=== PATIENT | male | born 1935 | race Caucasian/White ===

== ENCOUNTER 2018-11-06 12:30 | Inpatient (IN) | payer MEDICARE, BC ==
[2018-11-06] MEDS ORDERED: Sodium Chloride 0.9% 1,000 ML IV SCH (13:00)
--- NOTE | 2018-11-06 13:08 | EDM.PDOC ---
ED HPI GENERAL MEDICAL PROBLEM - General Chief Complaint: Back Pain or Injury Stated Complaint: [facility] Time Seen by Provider: 11/06/18 12:48 Source of Information: Reports: Patient, EMS, Family (daughter in law), RN Notes Reviewed - History of Present Illness INITIAL COMMENTS - FREE TEXT/NARRATIVE: 82 year old male became ill with low back pain, nausea, vomiting about 4 days ago, that has worsened over the last 2 days. Has had intermitent fever and chills yesterday and today. Today he has been "too weak to stand and walk" No abd pain at this time. Was given zofran and also 1 mg morphine IV while en route per ambulance. Not coughing any more than usual. No chest pain, does not feel short of breath but demonstrates tacyhpnea on arrival to ED. He is not diabetic. He does self catheterization, has not cathed his bladder since last evening, "too weak to get that done today." Treatments EMERGENCY RESPONSE COORDINATOR: Reports: Other Medication(s) Other Treatments EMERGENCY RESPONSE COORDINATOR: morphine and zofran Right Flank Pain Score (Numeric/FACES): 8 - Related Data Allergies Allergy/AdvReac Type Severity Reaction Status Date / Time No Known Allergies Allergy Verified 11/06/18 12:40 Home Meds: Home Meds Rosuvastatin Calcium 10 mg PO BEDTIME 11/06/18 [History] Temazepam [Restoril] 15 mg PO BEDTIME 11/06/18 [History] Past Medical History HEENT History: Reports: Impaired Vision Social & Family History - Tobacco Use Smoking Status *Q: Never Smoker - Caffeine Use Caffeine Use: Reports: Coffee - Recreational Drug Use Recreational Drug Use: No ED ROS GENERAL - Review of Systems Review Of Systems: See Below Constitutional: Reports: Fever, Chills HEENT: Denies: Sinus Problem, Throat Pain Respiratory: Reports: Cough (occasional). Denies: Shortness of Breath Cardiovascular: Denies: Chest Pain GI/Abdominal: Reports: Nausea, Vomiting. Denies: Abdominal Pain, Diarrhea Musculoskeletal: Reports: Back Pain (bilat low back) Neurological: Reports: Weakness (generalized) ED EXAM, SEPSIS - Physical Exam Exam: See Below General Appearance: Alert, Moderate Distress Eye Exam: Bilateral Eye: PERRL Throat/Mouth: Other (oral mucosa very dry) Course - Vital Signs Last Recorded V/S: Last Vital Signs Temp 101.8 F H 11/06/18 13:59 Pulse 91 11/06/18 13:59 Resp 16 11/06/18 13:59 BP 109/54 L 11/06/18 13:59 Pulse Ox 92 L 11/06/18 13:59 - Orders/Labs/Meds Orders: Active Orders 24 hr Category Date Time Status Insert Mcwilliams Catheter [Insert Urinary Catheter] [OM.PC] Care 11/06/18 13:56 Ordered Stat Peripheral IV Care [RC] . DIRECTED Care 11/06/18 12:49 Active Urinary Catheter Assessment [RC] ASDIRECTED Care 11/06/18 13:57 Active Chest 1V Frontal [CR] Stat Exams 11/06/18 12:49 Taken CULTURE BLOOD [BC] Stat Lab 11/06/18 13:05 Received CULTURE BLOOD [BC] Stat Lab 11/06/18 13:15 Received CULTURE URINE [RM] Stat Lab 11/06/18 13:40 Received Sodium Chloride 0.9% [Normal Saline] 1,000 ml Med 11/06/18 13:00 Active IV ONETIME Sodium Chloride 0.9% [Saline Flush] Med 11/06/18 12:48 Active 10 ml FLUSH ASDIRECTED PRN Peripheral IV Insertion Adult [OM.PC] Stat Oth 11/06/18 12:48 Ordered Medication Orders Sodium Chloride (Normal Saline) 1,000 mls @ 999 mls/hr IV ONETIME [facility] Last Admin: 11/06/18 13:30 Dose: 999 mls/hr Sodium Chloride (Saline Flush) 10 ml FLUSH ASDIRECTED PRN PRN Reason: Keep Vein Open Last Admin: 11/06/18 13:30 Dose: 10 ml Labs: Laboratory Tests 11/06/18 11/06/18 11/06/18 Range/Units 13:05 13:05 13:05 WBC 6.86 (4.23-9.07) K/mm3 RBC 3.76 L (4.63-6.08) M/mm3 Hgb 10.9 L (13.7-17.5) gm/L Hct 32.1 L (40.1-51.0) % MCV 85.4 (79.0-92.2) fl MCH 29.0 (25.7-32.2) pg MCHC 34.0 (32.2-35.5) g/dl RDW Std Deviation 40.6 (35.1-43.9) fL Plt Count 126 L (163-337) K/mm3 MPV 9.6 (9.4-12.3) fl Neutrophils % (Manual) 74 H (40-60) % Band Neutrophils % 21 H (0-10) % Lymphocytes % (Manual) 2 L (20-40) % Atypical Lymphs % 0 % Monocytes % (Manual) 3 (2-10) % Eosinophils % (Manual) 0 L (0.8-7.0) % Basophils % (Manual) 0 L (0.2-1.2) Toxic Granulation 2+ moderate Platelet Estimate Decreased RBC Morph Comment Normal Sodium 138 (136-145) mEq/L Potassium 3.4 L (3.5-5.1) mEq/L Chloride 104 (98-107) mEq/L Carbon Dioxide 21 (21-32) mEq/L Anion Gap 16.4 H (5-15) BUN 33 H (7-18) mg/dL Creatinine 1.1 (0.7-1.3) mg/dL Est Cr Clr Drug Dosing 62.27 mL/min Estimated GFR (MDRD) > 60 (>60) mL/min BUN/Creatinine Ratio 30.0 H (14-18) Glucose 123 H (83-115) mg/dL Lactic Acid (0.4-2.0) mmol/L Calcium 8.7 (8.5-10.1) mg/dL Total Bilirubin 1.7 H (0.2-1.0) mg/dL AST 29 (15-37) U/L ALT 24 (16-63) U/L Alkaline Phosphatase 109 (46-116) U/L C-Reactive Protein 23.7 H* (<1.0) mg/dL Total Protein 6.3 L (6.4-8.2) g/dl Albumin 2.7 L (3.4-5.0) g/dl Globulin 3.6 gm/dL Albumin/Globulin Ratio 0.8 L (1-2) Urine Color (Yellow) Urine Appearance (Clear) Urine pH (5.0-8.0) Ur Specific [place] (1.005-1.030) Urine Protein (Negative) Urine Glucose (UA) (Negative) Urine Ketones (Negative) Urine Occult Blood (Negative) Urine Nitrite (Negative) Urine Bilirubin (Negative) Urine Urobilinogen (0.2-1.0) Ur Leukocyte Esterase (Negative) Urine RBC (0-5) /hpf Urine WBC (0-5) /hpf Urine WBC Clumps (NOT SEEN) /hpf Ur Epithelial Cells (0-5) /hpf Urine Bacteria (FEW) /hpf Hyaline Casts (0-5) /lpf Coarse Granular Casts (0-5) /hpf Urine Mucus (FEW) /hpf 11/06/18 11/06/18 Range/Units 13:15 13:40 WBC (4.23-9.07) K/mm3 RBC (4.63-6.08) M/mm3 Hgb (13.7-17.5) gm/L Hct (40.1-51.0) % MCV (79.0-92.2) fl MCH (25.7-32.2) pg MCHC (32.2-35.5) g/dl RDW Std Deviation (35.1-43.9) fL Plt Count (163-337) K/mm3 MPV (9.4-12.3) fl Neutrophils % (Manual) (40-60) % Band Neutrophils % (0-10) % Lymphocytes % (Manual) (20-40) % Atypical Lymphs % % Monocytes % (Manual) (2-10) % Eosinophils % (Manual) (0.8-7.0) % Basophils % (Manual) (0.2-1.2) Toxic Granulation Platelet Estimate RBC Morph Comment Sodium (136-145) mEq/L Potassium (3.5-5.1) mEq/L Chloride (98-107) mEq/L Carbon Dioxide (21-32) mEq/L Anion Gap (5-15) BUN (7-18) mg/dL Creatinine (0.7-1.3) mg/dL Est Cr Clr Drug Dosing mL/min Estimated GFR (MDRD) (>60) mL/min BUN/Creatinine Ratio (14-18) Glucose (83-115) mg/dL Lactic Acid 1.4 (0.4-2.0) mmol/L Calcium (8.5-10.1) mg/dL Total Bilirubin (0.2-1.0) mg/dL AST (15-37) U/L ALT (16-63) U/L Alkaline Phosphatase (46-116) U/L C-Reactive Protein (<1.0) mg/dL Total Protein (6.4-8.2) g/dl Albumin (3.4-5.0) g/dl Globulin gm/dL Albumin/Globulin Ratio (1-2) Urine Color [place] H (Yellow) Urine Appearance Cloudy H (Clear) Urine pH 5.5 (5.0-8.0) Ur Specific [place] 1.020 (1.005-1.030) Urine Protein 2+ H (Negative) Urine Glucose (UA) Negative (Negative) Urine Ketones 1+ H (Negative) Urine Occult Blood 3+ H (Negative) Urine Nitrite Negative (Negative) Urine Bilirubin 1+ H (Negative) Urine Urobilinogen 2.0 H (0.2-1.0) Ur Leukocyte Esterase 3+ H (Negative) Urine RBC 0-5 (0-5) /hpf Urine WBC 20-30 H (0-5) /hpf Urine WBC Clumps Moderate (NOT SEEN) /hpf Ur Epithelial Cells Not seen (0-5) /hpf Urine Bacteria Moderate H (FEW) /hpf Hyaline Casts 0-5 (0-5) /lpf Coarse Granular Casts 0-5 (0-5) /hpf Urine Mucus Not seen (FEW) /hpf Meds: Medications Generic Name Dose Route Start Last Admin Trade Name Freq PRN Reason Stop Dose Admin Sodium Chloride 1,000 mls @ 999 mls/hr 11/06/18 13:00 11/06/18 13:30 Normal Saline IV 999 mls/hr ONETIME NAZ Administration Sodium Chloride 10 ml 11/06/18 12:48 11/06/18 13:30 Saline Flush FLUSH 10 ml ASDIRECTED PRN Administration Keep Vein Open Discontinued Medications Generic Name Dose Route Start Last Admin Trade Name Freq PRN Reason Stop Dose Admin Acetaminophen 975 mg 11/06/18 14:58 11/06/18 15:25 Tylenol PO 11/06/18 14:59 975 mg NOW ONE Administration Hydromorphone HCl 0.5 mg 11/06/18 14:58 11/06/18 15:24 Dilaudid IVPUSH 11/06/18 14:59 0.5 mg ONETIME ONE Administration Ceftriaxone Sodium 1 gm/ 100 mls @ 200 mls/hr 11/06/18 14:39 11/06/18 15:11 Sodium Chloride IV 11/06/18 15:08 200 mls/hr ONETIME ONE Administration Lidocaine HCl Confirm 11/06/18 15:11 Xylocaine 2% Jelly Administered 11/06/18 15:12 Dose 10 ml .ROUTE .STK-MED ONE Departure - Departure Time of Disposition: 15:31 Disposition: Admitted As Inpatient 68 Condition: Serious Clinical Impression: Pyelonephritis, Dehydration Vomiting Qualifiers: Vomiting type: unspecified Vomiting Intractability: non-intractable Nausea presence: with nausea Qualified Code(s): R11.2 - Nausea with vomiting, unspecified - Discharge Information Referrals: Migdalia Sanchez PA-C [Primary Care Provider] - Forms: ED Department Discharge ED Communication - Discussed Case With (1) Discussed Case With (1): Admitting Provider (discussed with Dr Cordova, decision to admit at about 14:15.) - My Orders Last 24 Hours: My Active Orders 11/06/18 12:48 Sodium Chloride 0.9% [Saline Flush] 10 ml FLUSH ASDIRECTED PRN Peripheral IV Insertion Adult [OM.PC] Stat 11/06/18 12:49 Peripheral IV Care [RC] . DIRECTED Chest 1V Frontal [CR] Stat 11/06/18 13:00 Sodium Chloride 0.9% [Normal Saline] 1,000 ml IV ONETIME 11/06/18 13:05 CULTURE BLOOD [BC] Stat 11/06/18 13:15 CULTURE BLOOD [BC] Stat 11/06/18 13:40 CULTURE URINE [RM] Stat 11/06/18 13:56 Insert Mcwilliams Catheter [Insert Urinary Catheter] [OM.PC] Stat 11/06/18 13:57 Urinary Catheter Assessment [RC] ASDIRECTED - Assessment/Plan Last 24 Hours: My Active Orders 11/06/18 12:48 Sodium Chloride 0.9% [Saline Flush] 10 ml FLUSH ASDIRECTED PRN Peripheral IV Insertion Adult [OM.PC] Stat 11/06/18 12:49 Peripheral IV Care [RC] . DIRECTED Chest 1V Frontal [CR] Stat 11/06/18 13:00 Sodium Chloride 0.9% [Normal Saline] 1,000 ml IV ONETIME 11/06/18 13:05 CULTURE BLOOD [BC] Stat 11/06/18 13:15 CULTURE BLOOD [BC] Stat 11/06/18 13:40 CULTURE URINE [RM] Stat 11/06/18 13:56 Insert Mcwilliams Catheter [Insert Urinary Catheter] [OM.PC] Stat 11/06/18 13:57 Urinary Catheter Assessment [RC] ASDIRECTED
[2018-11-06] MEDS: Sodium Chloride 0.9% 10 ML Syringe FLUSH PRN (13:30)
[2018-11-06] MEDS ORDERED: cefTRIAXone 1 GM in Sodium Chloride 0.9% 100 ML IV ONE (14:39)
[2018-11-06] MEDS ORDERED: Acetaminophen 325 MG Tab PO ONE (14:58)
[2018-11-06] MEDS ORDERED: HYDROmorphone 1 MG/ML Syringe IVPUSH ONE (14:58)
[2018-11-06] MEDS ORDERED: Lidocaine 2% Jelly 10 ML Urojet ONE (15:11)
--- NOTE | 2018-11-06 17:22 | PCM.HP ---
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 PCP is Jacquie Lewis whom he saw on 11/01/18 for a routine evaluation. The patient and his daughter report an unremarkable visit. However less than 24 hours later he developed significant flank pain. 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 UA is suggestive of a possible AUTI/pyelonephritis; he is admitted to [facility] with tele. The patient is a full code. Onset of Symptoms: Reports: Sudden Symptom Onset Date: 11/02/18 Duration of Symptoms: Reports: Day(s):, Getting Worse Location: Reports: Abdomen, Back Severity: Moderate Improves with: Reports: Medication Worsens with: Reports: None Associated Symptoms: Reports: Malaise, Nausea/Vomiting, Weakness Right Flank Pain Score (Numeric/FACES): 8 - Related Data Allergies/Adverse Reactions: Allergies Allergy/AdvReac Type Severity Reaction Status Date / Time No Known Allergies Allergy Verified 11/06/18 16:33 Home Medications: Home Meds Acetaminophen [Tylenol] 650 mg PO DAILY 11/06/18 [History] Ascorbate Calcium [Vitamin C] 500 mg PO DAILY 11/06/18 [History] Cholecalciferol (Vitamin D3) [Vitamin D] 5,000 units PO DAILY 11/06/18 [History] Cyanocobalamin (Vitamin B12) [Vitamin B12] 1,000 mcg PO DAILY 11/06/18 [History] Fluticasone Propionate [Flonase Allergy Relief] 2 spray NASBOTH DAILY 11/06/18 [ History] Ibuprofen/Diphenhydramine Cit [Advil Pm Caplet] 2 tab PO BEDTIME 11/06/18 [ History] Rosuvastatin Calcium 10 mg PO BEDTIME 11/06/18 [History] Temazepam [Restoril] 30 mg PO BEDTIME 02/10/19 [History] Past Medical History HEENT History: Reports: Allergic Rhinitis, Impaired Vision, Other (See Below) Other HEENT History: wears glasses Cardiovascular History: Reports: High Cholesterol, Other (See Below) Other Cardiovascular History: rheumatic fever as child Genitourinary History: Reports: Retention, Urinary, Other (See Below) Other Genitourinary History: straight cath's three times a day at home Musculoskeletal History: Reports: Arthritis, Back Pain, Chronic Neurological History: Reports: Neuropathy, Peripheral, Other (See Below) Other Neuro History: nerve damage Hematologic History: Reports: B12 Deficiency - Infectious Disease History Infectious Disease History: Reports: Rheumatic Fever - Past Surgical History HEENT Surgical History: Reports: Cataract Surgery Cardiovascular Surgical History: Reports: None GI Surgical History: Reports: Cholecystectomy, Colonoscopy, Other (See Below) Other GI Surgeries/Procedures: hernia repair Male Surgical History: Reports: None Neurological Surgical History: Reports: Other (See Below) Other Neurological Surgeries/Procedures: several back surgeries Musculoskeletal Surgical History: Reports: Carpal Tunnel, Other (See Below) Other Musculoskeletal Surgeries/Procedures:: left hip replaced, right knee replaced, left pinkie finger has a screw in it Social & Family History - Family History Family Medical History: Noncontributory - Tobacco Use Smoking Status *Q: Former Smoker Used Tobacco, but Quit: Yes Month/Year Tobacco Last Used: 1965 Tobacco Use Comment: used to chew tobacco but quit that 15-20 years ago - Caffeine Use Caffeine Use: Reports: Coffee, Soda - Alcohol Use Days Per Week of Alcohol Use: 7 Number of Drinks Per Day: 4 Total Drinks Per Week: 28 - Recreational Drug Use Recreational Drug Use: No H&P Review of Systems - Review of Systems: Review Of Systems: See Below General: Reports: Fever, Chills, Malaise, Weakness HEENT: Reports: No Symptoms Pulmonary: Reports: No Symptoms Cardiovascular: Reports: No Symptoms Gastrointestinal: Reports: Nausea, Vomiting Genitourinary: Reports: Urgency, Flank Pain Musculoskeletal: Reports: Back Pain Skin: Reports: No Symptoms Psychiatric: Reports: No Symptoms Neurological: Reports: No Symptoms Hematologic/Lymphatic: Reports: No Symptoms Immunologic: Reports: No Symptoms Exam - Exam Exam: See Below - Vital Signs Vital Signs: Last Vital Signs Temp 38.8 C H 11/06/18 13:59 Pulse 91 11/06/18 13:59 Resp 16 11/06/18 13:59 BP 109/54 L 11/06/18 13:59 Pulse Ox 92 L 11/06/18 13:59 Weight: 119.567 kg - Exam Quality Assessment: Urinary Catheter, DVT Prophylaxis General: Alert, Oriented, Cooperative HEENT: Conjunctiva Clear, EACs Clear, EOMI, Hearing Intact, Nares Patent, Normal Nasal Septum, Pupils Equal, Pupils Reactive, PERRLA Neck: Trachea Midline Lungs: Normal Respiratory Effort Cardiovascular: Regular Rate, Regular Rhythm GI/Abdominal Exam: Normal Bowel Sounds, Soft, Non-Tender, No Organomegaly, No Distention (Male) Exam: Deferred Rectal (Males) Exam: Deferred Back Exam: Normal Inspection, CVA Tenderness (L), CVA Tenderness (R) Extremities: Normal Inspection, Non-Tender, Slow Capillary Refill Skin: Warm Neurological: Cranial Nerves Intact Neuro Extensive - Mental Status: Alert, Oriented x3, Normal Mood/Affect, Normal Cognition, Memory Intact Neuro Extensive - Motor, Sensory, Reflexes: CN II-XII Intact Psychiatric: Alert, Normal Affect, Normal Mood - Patient Data Lab Results Last 24 hrs: Laboratory Results - last 24 hr 11/06/18 11/06/18 11/06/18 Range/Units 13:05 13:05 13:05 WBC 6.86 (4.23-9.07) K/mm3 RBC 3.76 L (4.63-6.08) M/mm3 Hgb 10.9 L (13.7-17.5) gm/L Hct 32.1 L (40.1-51.0) % MCV 85.4 (79.0-92.2) fl MCH 29.0 (25.7-32.2) pg MCHC 34.0 (32.2-35.5) g/dl RDW Std Deviation 40.6 (35.1-43.9) fL Plt Count 126 L (163-337) K/mm3 MPV 9.6 (9.4-12.3) fl Neutrophils % (Manual) 74 H (40-60) % Band Neutrophils % 21 H (0-10) % Lymphocytes % (Manual) 2 L (20-40) % Atypical Lymphs % 0 % Monocytes % (Manual) 3 (2-10) % Eosinophils % (Manual) 0 L (0.8-7.0) % Basophils % (Manual) 0 L (0.2-1.2) Toxic Granulation 2+ moderate Platelet Estimate Decreased RBC Morph Comment Normal Sodium 138 (136-145) mEq/L Potassium 3.4 L (3.5-5.1) mEq/L Chloride 104 (98-107) mEq/L Carbon Dioxide 21 (21-32) mEq/L Anion Gap 16.4 H (5-15) BUN 33 H (7-18) mg/dL Creatinine 1.1 (0.7-1.3) mg/dL Est Cr Clr Drug Dosing 62.27 mL/min Estimated GFR (MDRD) > 60 (>60) mL/min BUN/Creatinine Ratio 30.0 H (14-18) Glucose 123 H (83-115) mg/dL Lactic Acid (0.4-2.0) mmol/L Calcium 8.7 (8.5-10.1) mg/dL Total Bilirubin 1.7 H (0.2-1.0) mg/dL AST 29 (15-37) U/L ALT 24 (16-63) U/L Alkaline Phosphatase 109 (46-116) U/L C-Reactive Protein 23.7 H* (<1.0) mg/dL Total Protein 6.3 L (6.4-8.2) g/dl Albumin 2.7 L (3.4-5.0) g/dl Globulin 3.6 gm/dL Albumin/Globulin Ratio 0.8 L (1-2) Urine Color (Yellow) Urine Appearance (Clear) Urine pH (5.0-8.0) Ur Specific [place] (1.005-1.030) Urine Protein (Negative) Urine Glucose (UA) (Negative) Urine Ketones (Negative) Urine Occult Blood (Negative) Urine Nitrite (Negative) Urine Bilirubin (Negative) Urine Urobilinogen (0.2-1.0) Ur Leukocyte Esterase (Negative) Urine RBC (0-5) /hpf Urine WBC (0-5) /hpf Urine WBC Clumps (NOT SEEN) /hpf Ur Epithelial Cells (0-5) /hpf Urine Bacteria (FEW) /hpf Hyaline Casts (0-5) /lpf Coarse Granular Casts (0-5) /hpf Urine Mucus (FEW) /hpf 11/06/18 11/06/18 Range/Units 13:15 13:40 WBC (4.23-9.07) K/mm3 RBC (4.63-6.08) M/mm3 Hgb (13.7-17.5) gm/L Hct (40.1-51.0) % MCV (79.0-92.2) fl MCH (25.7-32.2) pg MCHC (32.2-35.5) g/dl RDW Std Deviation (35.1-43.9) fL Plt Count (163-337) K/mm3 MPV (9.4-12.3) fl Neutrophils % (Manual) (40-60) % Band Neutrophils % (0-10) % Lymphocytes % (Manual) (20-40) % Atypical Lymphs % % Monocytes % (Manual) (2-10) % Eosinophils % (Manual) (0.8-7.0) % Basophils % (Manual) (0.2-1.2) Toxic Granulation Platelet Estimate RBC Morph Comment Sodium (136-145) mEq/L Potassium (3.5-5.1) mEq/L Chloride (98-107) mEq/L Carbon Dioxide (21-32) mEq/L Anion Gap (5-15) BUN (7-18) mg/dL Creatinine (0.7-1.3) mg/dL Est Cr Clr Drug Dosing mL/min Estimated GFR (MDRD) (>60) mL/min BUN/Creatinine Ratio (14-18) Glucose (83-115) mg/dL Lactic Acid 1.4 (0.4-2.0) mmol/L Calcium (8.5-10.1) mg/dL Total Bilirubin (0.2-1.0) mg/dL AST (15-37) U/L ALT (16-63) U/L Alkaline Phosphatase (46-116) U/L C-Reactive Protein (<1.0) mg/dL Total Protein (6.4-8.2) g/dl Albumin (3.4-5.0) g/dl Globulin gm/dL Albumin/Globulin Ratio (1-2) Urine Color [place] H (Yellow) Urine Appearance Cloudy H (Clear) Urine pH 5.5 (5.0-8.0) Ur Specific [place] 1.020 (1.005-1.030) Urine Protein 2+ H (Negative) Urine Glucose (UA) Negative (Negative) Urine Ketones 1+ H (Negative) Urine Occult Blood 3+ H (Negative) Urine Nitrite Negative (Negative) Urine Bilirubin 1+ H (Negative) Urine Urobilinogen 2.0 H (0.2-1.0) Ur Leukocyte Esterase 3+ H (Negative) Urine RBC 0-5 (0-5) /hpf Urine WBC 20-30 H (0-5) /hpf Urine WBC Clumps Moderate (NOT SEEN) /hpf Ur Epithelial Cells Not seen (0-5) /hpf Urine Bacteria Moderate H (FEW) /hpf Hyaline Casts 0-5 (0-5) /lpf Coarse Granular Casts 0-5 (0-5) /hpf Urine Mucus Not seen (FEW) /hpf Result Diagrams: 11/06/18 13:05 11/06/18 13:05 - Problem List (1) Hyperlipidemia SNOMED Code(s): 87386315 ICD Code: E78.5 - HYPERLIPIDEMIA, UNSPECIFIED Status: Acute Current Visit : Yes (2) Dehydration SNOMED Code(s): 23635140 ICD Code: E86.0 - DEHYDRATION Status: Acute Current Visit: Yes (3) Pyelonephritis SNOMED Code(s): 71520997 ICD Code: N12 - TUBULO-INTERSTITIAL NEPHRITIS, NOT SPCF ACUTE OR CHRONIC Status: Acute Current Visit: Yes (4) Vomiting SNOMED Code(s): 932985209 ICD Code: R11.10 - VOMITING, UNSPECIFIED Status: Acute Current Visit: Yes Qualifiers: Vomiting type: unspecified Vomiting Intractability: non-intractable Nausea presence: with nausea Qualified Code(s): R11.2 - Nausea with vomiting, unspecified Problem List Initiated/Reviewed/Updated: Yes Orders Last 24hrs: Active Orders 24 hr Category Date Time Status Admission Status [Patient Status] [ADT] Routine ADT 11/06/18 15:51 Active Influenza Vaccine Charge [RC] .DISCHARGE Care 11/06/18 16:34 Active Insert Mcwilliams Catheter [Insert Urinary Catheter] [OM.PC] Care 11/06/18 13:56 Ordered Stat Peripheral IV Care [RC] . DIRECTED Care 11/06/18 12:49 Active Urinary Catheter Assessment [RC] ASDIRECTED Care 11/06/18 13:57 Active Chest 1V Frontal [CR] Stat Exams 11/06/18 12:49 Taken CULTURE BLOOD [BC] Stat Lab 11/06/18 13:05 Received CULTURE BLOOD [BC] Stat Lab 11/06/18 13:15 Received CULTURE URINE [RM] Stat Lab 11/06/18 13:40 Received Sodium Chloride 0.9% [Normal Saline] 1,000 ml Med 11/06/18 13:00 Active IV ONETIME Sodium Chloride 0.9% [Saline Flush] Med 11/06/18 12:48 Active 10 ml FLUSH ASDIRECTED PRN Peripheral IV Insertion Adult [OM.PC] Stat Oth 11/06/18 12:48 Ordered Medication Orders Sodium Chloride (Normal Saline) 1,000 mls @ 999 mls/hr IV ONETIME NAZ Last Admin: 11/06/18 13:30 Dose: 999 mls/hr Sodium Chloride (Saline Flush) 10 ml FLUSH ASDIRECTED PRN PRN Reason: Keep Vein Open Last Admin: 11/06/18 13:30 Dose: 10 ml Assessment/Plan Comment:: Impression: Flank pain with history of straight catheterizations Increase frequency/urgency Presumptive pyelonephritis History of chronic back pain Chronic HLD Plan: IVF Rocephin 2 gm daily UC, pending Pain meds Home meds Daily Labs Consult PT/OT/CM DVT/GI prophylaxis
[2018-11-06] MEDS ORDERED: LORazepam 2 MG/ML SDV IVPUSH PRN (17:29)
[2018-11-06] MEDS ORDERED: HYDROmorphone 0.5 MG/0.5 ML Syringe IVPUSH PRN (17:34)
[2018-11-06] MEDS ORDERED: Ondansetron 4 MG/2 ML SDV IVPUSH PRN (17:42)
[2018-11-06] MEDS ORDERED: hydrALAZINE 20 MG/ML SDV IVPUSH PRN (17:42)
--- NOTE | 2018-11-06 18:15 | CR ---
Chest: Portable view of the chest was obtained. Comparison: Prior chest x-ray of 09/30/15. Minimal left basilar atelectasis is noted. Lungs otherwise are clear. Heart size is normal. Tortuous thoracic aorta is seen. Bony structures are grossly intact. Impression: 1. Incidental findings as noted above. Nothing acute is appreciated. Diagnostic code #2
[2018-11-06] MEDS: Acetaminophen/HYDROcodone 325-5 MG Tab PO PRN (18:54)
[2018-11-06] MEDS: Enoxaparin 40 MG/0.4 ML Syringe SUBCUT SCH (18:59)
[2018-11-06] MEDS: Sodium Chloride 0.45% 1,000 ML IV SCH (18:59)
[2018-11-06] MEDS ORDERED: Temazepam 15 MG Cap PO SCH (21:00)
[2018-11-06] MEDS: Gabapentin 100 MG Cap PO SCH (21:17)
[2018-11-06] MEDS: Rosuvastatin 10 MG Tab PO SCH (21:17)
[2018-11-06] MEDS: Temazepam 15 MG Cap PO SCH (21:18)
[2018-11-07] MEDS: Sodium Chloride 0.45% 1,000 ML IV SCH ×4 (02:30→18:16)
[2018-11-07] MEDS: Acetaminophen/HYDROcodone 325-5 MG Tab PO PRN ×3 (04:20→19:53)
[2018-11-07] MEDS ORDERED: HYDROmorphone 1 MG/ML Syringe IVPUSH PRN (04:32)
--- NOTE | 2018-11-07 08:00 | PCM.PN ---
- General Info Date of Service: 11/07/18 Admission Dx/Problem (Free Text): Admission Diagnosis/Problem Admission Diagnosis/Problem Pyelonephritis Functional Status: Reports: Pain Controlled (with pain medications ), Tolerating Diet, Ambulating, Urinating, New Symptoms - Review of Systems General: Reports: Fever (101), Weakness, Fatigue, Malaise. Denies: Chills HEENT: Reports: No Symptoms. Denies: Headaches, Sore Throat Pulmonary: Reports: No Symptoms. Denies: Shortness of Breath, Cough, Sputum, Wheezing Cardiovascular: Reports: No Symptoms. Denies: Chest Pain, Palpitations, Edema Gastrointestinal: Reports: Abdominal Pain (suprapubic ), Decreased Appetite, Other (flank pain radiating around to abdomen ). Denies: Constipation, Diarrhea , Nausea, Vomiting Genitourinary: Reports: No Symptoms, Other (Mcwilliams catheter in place ) Musculoskeletal: Reports: Back Pain Skin: Reports: No Symptoms. Denies: Cyanosis Neurological: Reports: Difficulty Walking, Weakness, Gait Disturbance. Denies: Confusion, Numbness, Tingling, Trouble Speaking, Change in Speech Psychiatric: Reports: No Symptoms - Patient Data Vitals - Most Recent: Last Vital Signs Temp 97.5 F 11/07/18 04:20 Pulse 91 11/07/18 04:20 Resp 16 11/07/18 04:20 BP 140/64 11/07/18 04:20 Pulse Ox 95 11/07/18 04:20 Weight - Most Recent: 259 lb 6.4 oz I&O - Last 24 Hours: Intake & Output 11/06/18 11/07/18 11/07/18 22:59 06:59 14:59 Intake Total 560 1957 Output Total 150 650 Balance 410 1307 Lab Results Last 24 Hours: Laboratory Results - last 24 hr 11/06/18 11/06/18 11/06/18 Range/Units 13:05 13:05 13:05 WBC 6.86 (4.23-9.07) K/mm3 RBC 3.76 L (4.63-6.08) M/mm3 Hgb 10.9 L (13.7-17.5) gm/L Hct 32.1 L (40.1-51.0) % MCV 85.4 (79.0-92.2) fl MCH 29.0 (25.7-32.2) pg MCHC 34.0 (32.2-35.5) g/dl RDW Std Deviation 40.6 (35.1-43.9) fL Plt Count 126 L (163-337) K/mm3 MPV 9.6 (9.4-12.3) fl Neut % (Auto) (34.0-67.9) % Lymph % (Auto) (21.8-53.1) % [place] % (Auto) (5.3-12.2) % Eos % (Auto) (0.8-7.0) Baso % (Auto) (0.1-1.2) % Neut # (Auto) (1.78-5.38) K/mm3 Lymph # (Auto) (1.32-3.57) K/mm3 [place] # (Auto) (0.30-0.82) K/mm3 Eos # (Auto) (0.04-0.54) K/mm3 Baso # (Auto) (0.01-0.08) K/mm3 Neutrophils % (Manual) 74 H (40-60) % Band Neutrophils % 21 H (0-10) % Lymphocytes % (Manual) 2 L (20-40) % Atypical Lymphs % 0 % Monocytes % (Manual) 3 (2-10) % Eosinophils % (Manual) 0 L (0.8-7.0) % Basophils % (Manual) 0 L (0.2-1.2) Toxic Granulation 2+ moderate Platelet Estimate Decreased RBC Morph Comment Normal Sodium 138 (136-145) mEq/L Potassium 3.4 L (3.5-5.1) mEq/L Chloride 104 (98-107) mEq/L Carbon Dioxide 21 (21-32) mEq/L Anion Gap 16.4 H (5-15) BUN 33 H (7-18) mg/dL Creatinine 1.1 (0.7-1.3) mg/dL Est Cr Clr Drug Dosing 62.27 mL/min Estimated GFR (MDRD) > 60 (>60) mL/min BUN/Creatinine Ratio 30.0 H (14-18) Glucose 123 H (83-115) mg/dL Lactic Acid (0.4-2.0) mmol/L Calcium 8.7 (8.5-10.1) mg/dL Total Bilirubin 1.7 H (0.2-1.0) mg/dL AST 29 (15-37) U/L ALT 24 (16-63) U/L Alkaline Phosphatase 109 (46-116) U/L C-Reactive Protein 23.7 H* (<1.0) mg/dL Total Protein 6.3 L (6.4-8.2) g/dl Albumin 2.7 L (3.4-5.0) g/dl Globulin 3.6 gm/dL Albumin/Globulin Ratio 0.8 L (1-2) Urine Color (Yellow) Urine Appearance (Clear) Urine pH (5.0-8.0) Ur Specific [place] (1.005-1.030) Urine Protein (Negative) Urine Glucose (UA) (Negative) Urine Ketones (Negative) Urine Occult Blood (Negative) Urine Nitrite (Negative) Urine Bilirubin (Negative) Urine Urobilinogen (0.2-1.0) Ur Leukocyte Esterase (Negative) Urine RBC (0-5) /hpf Urine WBC (0-5) /hpf Urine WBC Clumps (NOT SEEN) /hpf Ur Epithelial Cells (0-5) /hpf Urine Bacteria (FEW) /hpf Hyaline Casts (0-5) /lpf Coarse Granular Casts (0-5) /hpf Urine Mucus (FEW) /hpf 11/06/18 11/06/18 11/07/18 Range/Units 13:15 13:40 05:58 WBC 6.64 (4.23-9.07) K/mm3 RBC 4.03 L (4.63-6.08) M/mm3 Hgb 11.8 L (13.7-17.5) gm/L Hct 34.8 L (40.1-51.0) % MCV 86.4 (79.0-92.2) fl MCH 29.3 (25.7-32.2) pg MCHC 33.9 (32.2-35.5) g/dl RDW Std Deviation 43.0 (35.1-43.9) fL Plt Count 136 L (163-337) K/mm3 MPV 10.1 (9.4-12.3) fl Neut % (Auto) 86.3 H (34.0-67.9) % Lymph % (Auto) 7.1 L (21.8-53.1) % [place] % (Auto) 5.7 (5.3-12.2) % Eos % (Auto) 0.3 L (0.8-7.0) Baso % (Auto) 0.0 L (0.1-1.2) % Neut # (Auto) 5.73 H (1.78-5.38) K/mm3 Lymph # (Auto) 0.47 L (1.32-3.57) K/mm3 [place] # (Auto) 0.38 (0.30-0.82) K/mm3 Eos # (Auto) 0.02 L (0.04-0.54) K/mm3 Baso # (Auto) 0.00 L (0.01-0.08) K/mm3 Neutrophils % (Manual) (40-60) % Band Neutrophils % (0-10) % Lymphocytes % (Manual) (20-40) % Atypical Lymphs % % Monocytes % (Manual) (2-10) % Eosinophils % (Manual) (0.8-7.0) % Basophils % (Manual) (0.2-1.2) Toxic Granulation Platelet Estimate RBC Morph Comment Sodium (136-145) mEq/L Potassium (3.5-5.1) mEq/L Chloride (98-107) mEq/L Carbon Dioxide (21-32) mEq/L Anion Gap (5-15) BUN (7-18) mg/dL Creatinine (0.7-1.3) mg/dL Est Cr Clr Drug Dosing mL/min Estimated GFR (MDRD) (>60) mL/min BUN/Creatinine Ratio (14-18) Glucose (83-115) mg/dL Lactic Acid 1.4 (0.4-2.0) mmol/L Calcium (8.5-10.1) mg/dL Total Bilirubin (0.2-1.0) mg/dL AST (15-37) U/L ALT (16-63) U/L Alkaline Phosphatase (46-116) U/L C-Reactive Protein (<1.0) mg/dL Total Protein (6.4-8.2) g/dl Albumin (3.4-5.0) g/dl Globulin gm/dL Albumin/Globulin Ratio (1-2) Urine Color [place] H (Yellow) Urine Appearance Cloudy H (Clear) Urine pH 5.5 (5.0-8.0) Ur Specific [place] 1.020 (1.005-1.030) Urine Protein 2+ H (Negative) Urine Glucose (UA) Negative (Negative) Urine Ketones 1+ H (Negative) Urine Occult Blood 3+ H (Negative) Urine Nitrite Negative (Negative) Urine Bilirubin 1+ H (Negative) Urine Urobilinogen 2.0 H (0.2-1.0) Ur Leukocyte Esterase 3+ H (Negative) Urine RBC 0-5 (0-5) /hpf Urine WBC 20-30 H (0-5) /hpf Urine WBC Clumps Moderate (NOT SEEN) /hpf Ur Epithelial Cells Not seen (0-5) /hpf Urine Bacteria Moderate H (FEW) /hpf Hyaline Casts 0-5 (0-5) /lpf Coarse Granular Casts 0-5 (0-5) /hpf Urine Mucus Not seen (FEW) /hpf 11/07/18 Range/Units 05:58 WBC (4.23-9.07) K/mm3 RBC (4.63-6.08) M/mm3 Hgb (13.7-17.5) gm/L Hct (40.1-51.0) % MCV (79.0-92.2) fl MCH (25.7-32.2) pg MCHC (32.2-35.5) g/dl RDW Std Deviation (35.1-43.9) fL Plt Count (163-337) K/mm3 MPV (9.4-12.3) fl Neut % (Auto) (34.0-67.9) % Lymph % (Auto) (21.8-53.1) % [place] % (Auto) (5.3-12.2) % Eos % (Auto) (0.8-7.0) Baso % (Auto) (0.1-1.2) % Neut # (Auto) (1.78-5.38) K/mm3 Lymph # (Auto) (1.32-3.57) K/mm3 [place] # (Auto) (0.30-0.82) K/mm3 Eos # (Auto) (0.04-0.54) K/mm3 Baso # (Auto) (0.01-0.08) K/mm3 Neutrophils % (Manual) (40-60) % Band Neutrophils % (0-10) % Lymphocytes % (Manual) (20-40) % Atypical Lymphs % % Monocytes % (Manual) (2-10) % Eosinophils % (Manual) (0.8-7.0) % Basophils % (Manual) (0.2-1.2) Toxic Granulation Platelet Estimate RBC Morph Comment Sodium (136-145) mEq/L Potassium (3.5-5.1) mEq/L Chloride (98-107) mEq/L Carbon Dioxide (21-32) mEq/L Anion Gap (5-15) BUN (7-18) mg/dL Creatinine (0.7-1.3) mg/dL Est Cr Clr Drug Dosing mL/min Estimated GFR (MDRD) (>60) mL/min BUN/Creatinine Ratio (14-18) Glucose (83-115) mg/dL Lactic Acid 1.2 (0.4-2.0) mmol/L Calcium (8.5-10.1) mg/dL Total Bilirubin (0.2-1.0) mg/dL AST (15-37) U/L ALT (16-63) U/L Alkaline Phosphatase (46-116) U/L C-Reactive Protein (<1.0) mg/dL Total Protein (6.4-8.2) g/dl Albumin (3.4-5.0) g/dl Globulin gm/dL Albumin/Globulin Ratio (1-2) Urine Color (Yellow) Urine Appearance (Clear) Urine pH (5.0-8.0) Ur Specific [place] (1.005-1.030) Urine Protein (Negative) Urine Glucose (UA) (Negative) Urine Ketones (Negative) Urine Occult Blood (Negative) Urine Nitrite (Negative) Urine Bilirubin (Negative) Urine Urobilinogen (0.2-1.0) Ur Leukocyte Esterase (Negative) Urine RBC (0-5) /hpf Urine WBC (0-5) /hpf Urine WBC Clumps (NOT SEEN) /hpf Ur Epithelial Cells (0-5) /hpf Urine Bacteria (FEW) /hpf Hyaline Casts (0-5) /lpf Coarse Granular Casts (0-5) /hpf Urine Mucus (FEW) /hpf Oscar Results Last 24 Hours: Microbiology 11/06/18 13:40 Urine Culture - Preliminary Urine, Catheterized Gram Negative Rods 11/06/18 13:05 Aerobic Blood Culture - Preliminary Blood Gram Negative Rods Anaerobic Blood Culture - Preliminary Gram Negative Rods 11/06/18 13:15 Aerobic Blood Culture - Preliminary Blood Gram Negative Rods Anaerobic Blood Culture - Preliminary Gram Negative Rods Gram Positive Cocci Med Orders - Current: Current Medications Acetaminophen (Tylenol) 650 mg PO Q6H PRN PRN Reason: Pain/Fever Hydrocodone Bitart/Acetaminophen ([place] 325-5 Mg) 1 tab PO Q6H PRN PRN Reason: Pain (moderate 4-6) Last Admin: 11/07/18 04:20 Dose: 1 tab Enoxaparin Sodium (Lovenox) 40 mg SUBCUT Q24H [facility] Last Admin: 11/06/18 18:59 Dose: 40 mg Gabapentin (Neurontin) 200 mg PO BEDTIME [facility] Last Admin: 11/06/18 21:17 Dose: 200 mg Hydralazine HCl (Apresoline) 20 mg IVPUSH Q6H PRN PRN Reason: Hypertension Hydromorphone HCl (Dilaudid) 0.5 mg IVPUSH Q8H PRN PRN Reason: Pain Last Admin: 11/07/18 04:45 Dose: 0.5 mg Ceftriaxone Sodium 2 gm/ (Sodium Chloride) 100 mls @ 200 mls/hr IV Q24H NAZ Sodium Chloride (Sodium Chloride 0.45%) 1,000 mls @ 125 mls/hr IV ASDIRECTED [facility] Last Admin: 11/07/18 02:30 Dose: 125 mls/hr Lorazepam (Ativan) 0 mg IVPUSH Q6H PRN; Protocol PRN Reason: Anxiety Ondansetron HCl (Zofran) 4 mg IVPUSH Q8H PRN PRN Reason: Nausea/Vomiting Rosuvastatin Calcium (Crestor) 10 mg PO BEDTIME [facility] Last Admin: 11/06/18 21:17 Dose: 10 mg Sodium Chloride (Saline Flush) 10 ml FLUSH ASDIRECTED PRN PRN Reason: Keep Vein Open Last Admin: 11/06/18 13:30 Dose: 10 ml Tamsulosin HCl (Flomax) 0.4 mg PO PCBREAKFAST [facility] Temazepam (Restoril) 15 mg PO BEDTIME [facility] Last Admin: 11/06/18 21:18 Dose: 15 mg Discontinued Medications Acetaminophen (Tylenol) 975 mg PO NOW ONE Stop: 11/06/18 14:59 Last Admin: 11/06/18 15:25 Dose: 975 mg Ceftriaxone Sodium (Rocephin) 2 gm IVPUSH Q24H NAZ Hydromorphone HCl (Dilaudid) 0.5 mg IVPUSH ONETIME ONE Stop: 11/06/18 14:59 Last Admin: 11/06/18 15:24 Dose: 0.5 mg Hydromorphone HCl (Dilaudid) 0.5 mg IVPUSH Q8H PRN PRN Reason: Pain Sodium Chloride (Normal Saline) 1,000 mls @ 999 mls/hr IV ONETIME NAZ Last Admin: 11/06/18 13:30 Dose: 999 mls/hr Ceftriaxone Sodium 1 gm/ (Sodium Chloride) 100 mls @ 200 mls/hr IV ONETIME ONE Stop: 11/06/18 15:08 Last Admin: 11/06/18 15:11 Dose: 200 mls/hr Influenza Virus Vaccine (Pharmacy To Dose - Influenza Vaccine) 1 each IM ONETIME ONE Stop: 11/06/18 16:35 Influenza Virus Vaccine (Fluzone High-Dose Syringe) 180 mcg IM .ONCE ONE Stop: 11/06/18 16:46 Lidocaine HCl (Xylocaine 2% Jelly) Confirm Administered Dose 10 ml .ROUTE .STK- MED ONE Stop: 11/06/18 15:12 Last Admin: 11/06/18 18:00 Dose: Not Given Temazepam (Restoril) 30 mg PO BEDTIME NAZ - Exam Quality Assessment: Supplemental Oxygen, Urine Catheter, DVT Prophylaxis General: Alert, Oriented, Cooperative HEENT: Pupils Equal, Pupils Reactive, EOMI. No: Mucous Membr. Moist/[place] (dry mouth ) Neck: Supple, Trachea Midline, No JVD Lungs: Clear to Auscultation, Normal Respiratory Effort Cardiovascular: Regular Rate, Regular Rhythm GI/Abdominal Exam: Normal Bowel Sounds, No Distention, No Abnormal Bruit, Distended, Tender (suprapubic ) (Male) Exam: Deferred Back Exam: Normal Inspection, Decreased Range of Motion (2/2 pain ) Extremities: Normal Inspection, Normal Range of Motion, Non-Tender, No Pedal Edema, Normal Capillary Refill Peripheral Pulses: 3+: Radial (L), Radial (R), Dorsalis Pedis (L), Dorsalis Pedis (R) Skin: Intact, Moist, Other (feverish ) Neurological: No New Focal Deficit Psy/Mental Status: Alert, Normal Affect, Normal Mood - Problem List & Annotations (1) Bacteremia SNOMED Code(s): 5953094 Code(s): R78.81 - BACTEREMIA Status: Acute Priority: High Current Visit : Yes (2) Dehydration SNOMED Code(s): 37259265 Code(s): E86.0 - DEHYDRATION Status: Acute Priority: High Current Visit : Yes (3) Hyperlipidemia SNOMED Code(s): 64436415 Code(s): E78.5 - HYPERLIPIDEMIA, UNSPECIFIED Status: Chronic Priority: Low Current Visit: No Qualifiers: Hyperlipidemia type: unspecified Qualified Code(s): E78.5 - Hyperlipidemia , unspecified (4) Pyelonephritis SNOMED Code(s): 36385936 Code(s): N12 - TUBULO-INTERSTITIAL NEPHRITIS, NOT SPCF ACUTE OR CHRONIC Status: Acute Priority: High Current Visit: Yes (5) Vomiting SNOMED Code(s): 139890921 Code(s): R11.10 - VOMITING, UNSPECIFIED Status: Resolved Priority: Medium Current Visit: Yes Qualifiers: Vomiting type: unspecified Vomiting Intractability: non-intractable Nausea presence: with nausea Qualified Code(s): R11.2 - Nausea with vomiting, unspecified - Problem List Review Problem List Initiated/Reviewed/Updated: Yes - Plan Plan:: Impression: Flank pain with history of straight catheterizations Increase frequency/urgency Pyelonephritis - gram negative rods on urine culture History of chronic back pain Bacteremia - Gram negative rods in 4/4 bottles Gram positive rods in 1/4 bottles (suspect contamination but will monitor ) Chronic HLD Plan: IVF Rocephin 2 gm daily 1L fluid bolus today Mcwilliams catheter in place 2/2 chronic urinary retention UC, pending O2 as needed - 2/2 pain medications Pain meds Home meds Daily Labs Consult PT/OT/CM DVT/GI prophylaxis Code status: Full code; PCP: Migdalia Sanchez PA-C
[2018-11-07] MEDS ORDERED: cefTRIAXone 2 GM Vial IVPUSH SCH (09:00)
[2018-11-07] MEDS: Acetaminophen 325 MG Tab PO PRN ×2 (09:03→15:54)
[2018-11-07] MEDS: Tamsulosin 0.4 MG Cap.ER PO SCH (09:03)
[2018-11-07] MEDS ORDERED: Sodium Chloride 0.9% 1,000 ML IV ONE (09:52)
[2018-11-07] MEDS: HYDROmorphone 1 MG/ML Syringe IVPUSH PRN (10:22)
[2018-11-07] MEDS: cefTRIAXone 2 GM in Sodium Chloride 0.9% 100 ML IV SCH (15:37)
[2018-11-07] MEDS: Multivitamins,Therapeutic Tab PO SCH (15:54)
[2018-11-07] MEDS: Folic Acid 1 MG Tab PO SCH (15:54)
[2018-11-07] MEDS: Thiamine 100 MG Tab PO SCH (15:54)
[2018-11-07] MEDS: Enoxaparin 40 MG/0.4 ML Syringe SUBCUT SCH (18:17)
[2018-11-07] MEDS: Gabapentin 100 MG Cap PO SCH (20:45)
[2018-11-07] MEDS: Temazepam 15 MG Cap PO SCH (20:46)
[2018-11-07] MEDS: Rosuvastatin 10 MG Tab PO SCH (20:46)
[2018-11-07] MEDS ORDERED: Sodium Chloride 0.45% 1,000 ML IV SCH (21:00)
[2018-11-08] MEDS: Acetaminophen/HYDROcodone 325-5 MG Tab PO PRN ×3 (00:04→20:34)
[2018-11-08] MEDS: HYDROmorphone 1 MG/ML Syringe IVPUSH PRN ×4 (02:16→22:35)
[2018-11-08] MEDS ORDERED: Ketorolac 30 MG/ML SDV IVPUSH SCH (06:45)
[2018-11-08] MEDS: Ketorolac 15 MG/ML SDV IVPUSH SCH ×3 (07:06→19:00)
[2018-11-08] MEDS: Folic Acid 1 MG Tab PO SCH (08:32)
[2018-11-08] MEDS: Multivitamins,Therapeutic Tab PO SCH (08:32)
--- NOTE | 2018-11-08 08:32 | PCM.PN ---
- General Info Date of Service: 11/08/18 Admission Dx/Problem (Free Text): Admission Diagnosis/Problem Admission Diagnosis/Problem Pyelonephritis Subjective Update: In to see Mega. He looks much better today than yesterday. Cultures are growing E. Coli in urine and blood with good Rocephin sensitivity. Repeat blood cultures were drawn yesterday in error. Will repeat today as he should be on 48 hours of antibiotics before repeat cultures are drawn. He is reporting abdominal pain now which he rates as his most severe pain. Abdominal x-ray was obtained and read is pending. Suppository was ordered earlier in the day as he reports feeling constipated. Have scheduled colace as he has been receiving opioid pain medications. Functional Status: Reports: Pain Controlled (improved greatly), Tolerating Diet , Ambulating, Urinating, New Symptoms - Review of Systems General: Reports: Weakness, Fatigue, Malaise. Denies: Fever, Chills HEENT: Reports: No Symptoms. Denies: Eye Pain, Headaches Pulmonary: Reports: No Symptoms. Denies: Shortness of Breath, Cough, Sputum, Wheezing Cardiovascular: Reports: No Symptoms. Denies: Chest Pain, Palpitations, Dyspnea on Exertion, Edema, Lightheadedness Gastrointestinal: Reports: Abdominal Pain, Constipation, Decreased Appetite. Denies: Diarrhea, Nausea, Vomiting Genitourinary: Reports: Retention, Other (varghese in place ) Musculoskeletal: Reports: Back Pain (acute on chronic ) Skin: Reports: No Symptoms Neurological: Reports: No Symptoms. Denies: Confusion Psychiatric: Reports: No Symptoms - Patient Data Vitals - Most Recent: Last Vital Signs Temp 97.9 F 11/08/18 07:47 Pulse 83 11/08/18 07:47 Resp 16 11/08/18 07:47 BP 129/51 L 11/08/18 07:47 Pulse Ox 94 L 11/08/18 07:47 Weight - Most Recent: 263 lb 6.4 oz I&O - Last 24 Hours: Intake & Output 11/07/18 11/08/18 11/08/18 22:59 06:59 14:59 Intake Total 3281 1888 Output Total 770 625 75 Balance 2511 1263 -75 Lab Results Last 24 Hours: Laboratory Results - last 24 hr 11/08/18 11/08/18 11/08/18 Range/Units 06:05 06:05 06:05 WBC 5.95 (4.23-9.07) K/mm3 RBC 3.61 L (4.63-6.08) M/mm3 Hgb 10.4 L (13.7-17.5) gm/L Hct 31.2 L (40.1-51.0) % MCV 86.4 (79.0-92.2) fl MCH 28.8 (25.7-32.2) pg MCHC 33.3 (32.2-35.5) g/dl RDW Std Deviation 42.7 (35.1-43.9) fL Plt Count 118 L (163-337) K/mm3 MPV 9.8 (9.4-12.3) fl Neut % (Auto) 83.4 H (34.0-67.9) % Lymph % (Auto) 7.4 L (21.8-53.1) % [place] % (Auto) 8.2 (5.3-12.2) % Eos % (Auto) 0.5 L (0.8-7.0) Baso % (Auto) 0.2 (0.1-1.2) % Neut # (Auto) 4.96 (1.78-5.38) K/mm3 Lymph # (Auto) 0.44 L (1.32-3.57) K/mm3 [place] # (Auto) 0.49 (0.30-0.82) K/mm3 Eos # (Auto) 0.03 L (0.04-0.54) K/mm3 Baso # (Auto) 0.01 (0.01-0.08) K/mm3 Manual Slide Review Abnormal smear Sodium 134 L (136-145) mEq/L Potassium 3.8 (3.5-5.1) mEq/L Chloride 101 (98-107) mEq/L Carbon Dioxide 25 (21-32) mEq/L Anion Gap 11.8 (5-15) BUN 25 H (7-18) mg/dL Creatinine 0.9 (0.7-1.3) mg/dL Est Cr Clr Drug Dosing 76.14 mL/min Estimated GFR (MDRD) > 60 (>60) mL/min BUN/Creatinine Ratio 27.8 H (14-18) Glucose 111 (83-115) mg/dL Lactic Acid 0.8 (0.4-2.0) mmol/L Calcium 8.9 (8.5-10.1) mg/dL Magnesium 1.9 (1.8-2.4) mg/dl C-Reactive Protein 23.0 H* (<1.0) mg/dL Oscar Results Last 24 Hours: Microbiology 11/06/18 13:15 Aerobic Blood Culture - Preliminary Blood Gram Negative Rods Anaerobic Blood Culture - Preliminary Gram Negative Rods Gram Positive Cocci 11/06/18 13:40 Urine Culture - Preliminary Urine, Catheterized Gram Negative Rods 11/06/18 13:05 Aerobic Blood Culture - Preliminary Blood Gram Negative Rods Anaerobic Blood Culture - Preliminary Gram Negative Rods Med Orders - Current: Current Medications Acetaminophen (Tylenol) 650 mg PO Q6H PRN PRN Reason: Pain/Fever Last Admin: 11/07/18 15:54 Dose: 650 mg Hydrocodone Bitart/Acetaminophen ([place] 325-5 Mg) 1 tab PO Q4H PRN PRN Reason: Pain (moderate 4-6) Last Admin: 11/08/18 06:51 Dose: 1 tab Folic Acid (Folic Acid) 1 mg PO DAILY [facility] Last Admin: 11/07/18 15:54 Dose: 1 mg Gabapentin (Neurontin) 200 mg PO BEDTIME [facility] Last Admin: 11/07/18 20:45 Dose: 200 mg Hydralazine HCl (Apresoline) 20 mg IVPUSH Q6H PRN PRN Reason: Hypertension Hydromorphone HCl (Dilaudid) 0.5 mg IVPUSH Q4H PRN PRN Reason: Severe pain Last Admin: 11/08/18 07:04 Dose: 0.5 mg Ceftriaxone Sodium 2 gm/ (Sodium Chloride) 100 mls @ 200 mls/hr IV Q24H [facility] Last Admin: 11/07/18 15:37 Dose: 200 mls/hr Sodium Chloride (Sodium Chloride 0.45%) 1,000 mls @ 75 mls/hr IV ASDIRECTED [facility] Last Admin: 11/08/18 04:32 Dose: 75 mls/hr Ketorolac Tromethamine (Toradol) 15 mg IVPUSH Q6H [facility] Last Admin: 11/08/18 07:06 Dose: 15 mg Lorazepam (Ativan) 0 mg IVPUSH Q6H PRN; Protocol PRN Reason: Anxiety Multivitamins (Thera) 1 each PO DAILY [facility] Last Admin: 11/07/18 15:54 Dose: 1 each Ondansetron HCl (Zofran) 4 mg IVPUSH Q8H PRN PRN Reason: Nausea/Vomiting Rosuvastatin Calcium (Crestor) 10 mg PO BEDTIME [facility] Last Admin: 11/07/18 20:46 Dose: 10 mg Sodium Chloride (Saline Flush) 10 ml FLUSH ASDIRECTED PRN PRN Reason: Keep Vein Open Last Admin: 11/06/18 13:30 Dose: 10 ml Tamsulosin HCl (Flomax) 0.4 mg PO PCBREAKFAST [facility] Last Admin: 11/07/18 09:03 Dose: 0.4 mg Temazepam (Restoril) 15 mg PO BEDTIME [facility] Last Admin: 11/07/18 20:46 Dose: 15 mg Thiamine HCl (Vitamin B-1) 100 mg PO DAILY [facility] Last Admin: 11/07/18 15:54 Dose: 100 mg Discontinued Medications Acetaminophen (Tylenol) 975 mg PO NOW ONE Stop: 11/06/18 14:59 Last Admin: 11/06/18 15:25 Dose: 975 mg Hydrocodone Bitart/Acetaminophen ([place] 325-5 Mg) 1 tab PO Q6H PRN PRN Reason: Pain (moderate 4-6) Last Admin: 11/07/18 04:20 Dose: 1 tab Ceftriaxone Sodium (Rocephin) 2 gm IVPUSH Q24H [facility] Enoxaparin Sodium (Lovenox) 40 mg SUBCUT Q24H [facility] Last Admin: 11/07/18 18:17 Dose: 40 mg Hydromorphone HCl (Dilaudid) 0.5 mg IVPUSH ONETIME ONE Stop: 11/06/18 14:59 Last Admin: 11/06/18 15:24 Dose: 0.5 mg Hydromorphone HCl (Dilaudid) 0.5 mg IVPUSH Q8H PRN PRN Reason: Pain Hydromorphone HCl (Dilaudid) 0.5 mg IVPUSH Q8H PRN PRN Reason: Pain Last Admin: 11/07/18 04:45 Dose: 0.5 mg Hydromorphone HCl (Dilaudid) 0.5 mg IVPUSH Q6H PRN PRN Reason: Severe pain Last Admin: 11/08/18 02:16 Dose: 0.5 mg Sodium Chloride (Normal Saline) 1,000 mls @ 999 mls/hr IV ONETIME [facility] Last Admin: 11/06/18 13:30 Dose: 999 mls/hr Ceftriaxone Sodium 1 gm/ (Sodium Chloride) 100 mls @ 200 mls/hr IV ONETIME ONE Stop: 11/06/18 15:08 Last Admin: 11/06/18 15:11 Dose: 200 mls/hr Sodium Chloride (Sodium Chloride 0.45%) 1,000 mls @ 125 mls/hr IV ASDIRECTED [facility] Last Admin: 11/07/18 09:52 Dose: 125 mls/hr Sodium Chloride (Normal Saline) 1,000 mls @ 999 mls/hr IV ONETIME ONE Stop: 11/07/18 10:52 Last Admin: 11/07/18 10:25 Dose: 999 mls/hr Sodium Chloride (Sodium Chloride 0.45%) 1,000 mls @ 150 mls/hr IV ASDIRECTED [facility] Last Admin: 11/07/18 18:16 Dose: 150 mls/hr Influenza Virus Vaccine (Pharmacy To Dose - Influenza Vaccine) 1 each IM ONETIME ONE Stop: 11/06/18 16:35 Influenza Virus Vaccine (Fluzone High-Dose Syringe) 180 mcg IM .ONCE ONE Stop: 11/06/18 16:46 Ketorolac Tromethamine (Toradol) 30 mg IVPUSH Q6H [facility] Last Admin: 11/08/18 08:05 Dose: Not Given Lidocaine HCl (Xylocaine 2% Jelly) Confirm Administered Dose 10 ml .ROUTE .STK- MED ONE Stop: 11/06/18 15:12 Last Admin: 11/06/18 18:00 Dose: Not Given Temazepam (Restoril) 30 mg PO BEDTIME NAZ - Exam Quality Assessment: DVT Prophylaxis General: Alert, Oriented, Cooperative, No Acute Distress (improved over AM ) HEENT: Pupils Equal, Pupils Reactive, EOMI, Mucous Membr. Moist/Jones Neck: Supple, Trachea Midline, No JVD Lungs: Clear to Auscultation, Normal Respiratory Effort Cardiovascular: Regular Rate, Regular Rhythm GI/Abdominal Exam: Normal Bowel Sounds, Soft, Non-Tender, No Distention, No Abnormal Bruit (Male) Exam: Deferred Back Exam: Normal Inspection, Full Range of Motion Extremities: Normal Inspection, Normal Range of Motion, Non-Tender, No Pedal Edema, Normal Capillary Refill Peripheral Pulses: 3+: Radial (L), Radial (R), Dorsalis Pedis (L), Dorsalis Pedis (R) Skin: Warm, Dry, Intact Neurological: No New Focal Deficit Psy/Mental Status: Alert, Normal Affect, Normal Mood - Problem List & Annotations (1) Bacteremia SNOMED Code(s): 2075618 Code(s): R78.81 - BACTEREMIA Status: Acute Priority: High Current Visit : Yes (2) Dehydration SNOMED Code(s): 34381873 Code(s): E86.0 - DEHYDRATION Status: Acute Priority: High Current Visit : Yes (3) Hyperlipidemia SNOMED Code(s): 73199335 Code(s): E78.5 - HYPERLIPIDEMIA, UNSPECIFIED Status: Chronic Priority: Low Current Visit: No Qualifiers: Hyperlipidemia type: unspecified Qualified Code(s): E78.5 - Hyperlipidemia , unspecified (4) Pyelonephritis SNOMED Code(s): 45338069 Code(s): N12 - TUBULO-INTERSTITIAL NEPHRITIS, NOT SPCF ACUTE OR CHRONIC Status: Acute Priority: High Current Visit: Yes (5) Vomiting SNOMED Code(s): 726722402 Code(s): R11.10 - VOMITING, UNSPECIFIED Status: Resolved Priority: Medium Current Visit: Yes Qualifiers: Vomiting type: unspecified Vomiting Intractability: non-intractable Nausea presence: with nausea Qualified Code(s): R11.2 - Nausea with vomiting, unspecified - Problem List Review Problem List Initiated/Reviewed/Updated: Yes - My Orders Last 24 Hours: My Active Orders 11/07/18 09:57 Acetaminophen/HYDROcodone [[place] 325-5 MG] 1 tab PO Q4H PRN 11/07/18 09:58 Consult to Spiritual Care [CONS] Routine 11/07/18 09:59 Blood Culture x2 Reflex Set [OM.PC] Stat 11/07/18 13:00 CULTURE BLOOD [BC] Routine 11/07/18 13:18 CULTURE BLOOD [BC] Routine 11/07/18 15:30 Folic Acid 1 mg PO DAILY Multivitamins,Therapeutic [Thera] 1 each PO DAILY Thiamine [Vitamin B-1] 100 mg PO DAILY 11/07/18 21:00 Sodium Chloride 0.45% 1,000 ml IV ASDIRECTED 11/07/18 Dinner Soft Diet [DIET] 11/08/18 06:36 Antiembolic Devices [RC] PER UNIT ROUTINE SCD [Sequential Compression Device] [OM.PC] Routine 11/08/18 06:50 HYDROmorphone [Dilaudid] 0.5 mg IVPUSH Q4H PRN 11/08/18 07:00 Ketorolac [Toradol] 15 mg IVPUSH Q6H - Plan Plan:: Impression: Flank pain with history of straight catheterizations Increase frequency/urgency Pyelonephritis - E. Coli sensitive to rocephin History of chronic back pain Bacteremia - E. Coli in 4/4 bottles Gram positive rods in 1/4 bottles (suspect contamination but will monitor ) Chronic HLD Plan: IVF Rocephin 2 gm daily Fluids as ordered Varg[place]se catheter in place 2/2 chronic urinary retention UC, E. Coli - sensitive to Rocephin O2 as needed Pain meds Add IS Home meds Daily Labs Consult PT/OT/CM DVT/GI prophylaxis Code status: Full code; PCP: Migdalia Sanchez PA-C
[2018-11-08] MEDS: Thiamine 100 MG Tab PO SCH (08:33)
[2018-11-08] MEDS: Tamsulosin 0.4 MG Cap.ER PO SCH (09:00)
[2018-11-08] MEDS: Docusate Sodium 100 MG Cap PO PRN ×2 (10:49→20:33)
[2018-11-08] MEDS: Lidocaine 5% 700 MG Patch TOP SCH (10:49)
[2018-11-08] MEDS ORDERED: Bisacodyl 10 MG Supp RECTAL ONE ×2 (12:41→17:54)
[2018-11-08] MEDS ORDERED: Simethicone 80 MG Tab.Chew PO ONE (13:51)
[2018-11-08] MEDS ORDERED: Simethicone 80 MG Tab.Chew PO PRN (13:52)
[2018-11-08] MEDS: Gabapentin 100 MG Cap PO SCH ×2 (14:05→20:35)
[2018-11-08] MEDS: cefTRIAXone 2 GM in Sodium Chloride 0.9% 100 ML IV SCH (14:06)
--- NOTE | 2018-11-08 14:23 | CR ---
Abdomen: Supine view of the abdomen was obtained. Comparison: No prior abdominal x-ray. Gas noted within the colon. Left hip prosthesis is noted. Superior joint space narrowing is noted within the right hip. Degenerative change is scattered throughout the spine. Surgical clips are seen from previous cholecystectomy. Single surgical clip is noted within the pelvis. Calcification within right side of the pelvis is likely due to phlebolith. Impression: 1. Increased gas throughout the colon most likely representing colonic ileus. 2. Other incidental findings. Diagnostic code #3
[2018-11-08] MEDS ORDERED: Iopamidol 612 MG/ML 100 ML Bottle IVPUSH ONE (15:56)
[2018-11-08] MEDS ORDERED: Diatrizoate Meglumine/Diatrizoate Sodium 37% 120 ML Bottle PO ONE (15:56)
[2018-11-08] MEDS: Sodium Chloride 0.9% 10 ML Syringe FLUSH PRN (16:02)
[2018-11-08] MEDS ORDERED: Sodium Chloride 0.9% 1,000 ML IV SCH (16:30)
[2018-11-08] MEDS ORDERED: Benzocaine 20% Oral Spray 59.2 ML Canister MUCMEM PRN (18:19)
--- NOTE | 2018-11-08 19:01 | CR ---
Chest: Portable view of the chest was obtained. Comparison: Prior chest x-ray of 11/06/18. Heart size appears within normal limits for portable technique. Tortuous thoracic aorta is seen. Mild atelectasis is seen within the left lung base. Lungs otherwise are clear. Nasogastric tube is seen which is slightly coiled within the stomach. Impression: 1. Left basilar atelectasis. 2. Tip of nasogastric tube coiled within the stomach. Diagnostic code #2
[2018-11-08] MEDS: NS + KCl 20mEq/L 1,000 ML IV SCH (19:48)
--- NOTE | 2018-11-08 20:14 | CR ---
Chest: Portable view of the chest was obtained. Comparison: Prior chest x-ray performed earlier in the same day (6:38 PM). Slight left basilar atelectasis is again noted. Lungs otherwise are clear. Heart size is within normal limits. Tortuous thoracic aorta is seen. Bony structures are grossly intact. Nasogastric tube is seen with tip lying within the stomach. Impression: 1. Tip of nasogastric tube within the stomach. 2. Other incidental findings. Diagnostic code #2
[2018-11-08] MEDS: Temazepam 15 MG Cap PO SCH (20:35)
[2018-11-08] MEDS: Rosuvastatin 10 MG Tab PO SCH (20:35)
[2018-11-09] MEDS: Ketorolac 15 MG/ML SDV IVPUSH SCH ×4 (03:01→19:57)
[2018-11-09] MEDS: NS + KCl 20mEq/L 1,000 ML IV SCH ×3 (04:00→21:00)
[2018-11-09] MEDS ORDERED: Bisacodyl 10 MG Supp RECTAL ONE (07:15)
--- NOTE | 2018-11-09 07:56 | CT ---
CT abdomen and pelvis Technique: Multiple axial sections were obtained from above the dome of the diaphragm inferiorly through the pubic symphysis. Intravenous and oral contrast was utilized. Delayed images were obtained through the bladder. Comparison: No prior abdominal CT exam, previous abdominal x-ray performed earlier the same day (1:39 PM). Minimal bilateral pleural effusions are seen with right basilar atelectasis. Cyst is noted within the liver measuring approximately 2.8 cm. Spleen appears within normal limits. Surgical clips are seen from prior cholecystectomy. Adrenal glands show no nodule. Small cortical cysts are noted within both kidneys. Extrarenal pelvis is noted on the right side and smaller extrarenal pelvis is noted on the left side. Pancreas appears within normal limits. Aorta shows atherosclerotic change which continues into the iliac vessels. No aneurysm is seen. No retroperitoneal adenopathy or mesenteric abnormalities are seen. No pelvic mass or adenopathy is noted. Mcwilliams catheter is noted within the bladder. Small fat-containing umbilical hernia is seen. Second small fat-containing abdominal wall hernia seen to the left of the umbilicus. Diffuse gaseous dilatation noted throughout the colon. Delayed images show no contrast within the distal ureters or bladder base and the possibility of dehydration or poor renal function. Bone window setting show left hip prosthesis. Degenerative change noted within the spine. Impression: 1. Gaseous dilatation throughout colon most likely due to colonic ileus. 2. Other incidental findings as noted above. Diagnostic code #3 I agree with preliminary report from [facility], finalized on 12/06/18, 5:35 PM Central Time
--- NOTE | 2018-11-09 08:19 | PCM.PN ---
- General Info Date of Service: 11/09/18 Admission Dx/Problem (Free Text): Admission Diagnosis/Problem Admission Diagnosis/Problem Pyelonephritis Subjective Update: In to see Mega. He is lying back in the recliner and reports he feels much better this afternoon than he even did today. Daughter is at bedside. Dr. Bird has consulted on him and feels he is improving. At her recommendation we placed magnesium citrate in NG tube 1/2 bottle at a time and suppository was given again today. Still having significant output from NG tube. He has not passed gas or had a BM. Will continue to closely monitor. Repeat blood cultures are negative after one day. Dr. madden's office was contacted and updated on varghese catheter, as he has an appointment next Wednesday with them. They suggested leaving Varghese in until follow-up. Functional Status: Reports: Pain Controlled, Tolerating Diet, Ambulating, Urinating, Incentive Spirometry. Denies: New Symptoms - Review of Systems General: Reports: No Symptoms, Weakness, Fatigue. Denies: Fever, Malaise, Chills HEENT: Reports: No Symptoms. Denies: Headaches, Sore Throat Pulmonary: Reports: No Symptoms. Denies: Shortness of Breath, Cough, Sputum, Wheezing Cardiovascular: Reports: No Symptoms. Denies: Chest Pain, Palpitations, Dyspnea on Exertion, Edema Gastrointestinal: Reports: Abdominal Pain (improved ), Decreased Appetite. Denies: Flatus, Nausea, Vomiting Genitourinary: Reports: No Symptoms Musculoskeletal: Reports: Back Pain (chronic ) Skin: Reports: No Symptoms Neurological: Reports: Confusion (Confused overnight but resolved today. ), Difficulty Walking, Weakness, Gait Disturbance. Denies: Dizziness, Pre- Existing Deficit, Trouble Speaking Psychiatric: Reports: No Symptoms - Patient Data Vitals - Most Recent: Last Vital Signs Temp 98.4 F 11/09/18 04:54 Pulse 85 11/09/18 04:54 Resp 20 11/09/18 04:54 BP 129/62 11/09/18 04:54 Pulse Ox 97 11/09/18 04:54 Weight - Most Recent: 276 lb 8 oz I&O - Last 24 Hours: Intake & Output 11/08/18 11/09/18 11/09/18 22:59 06:59 14:59 Intake Total 2500 1413 Output Total 945 1470 Balance 1555 -57 Lab Results Last 24 Hours: Laboratory Results - last 24 hr 11/09/18 11/09/18 11/09/18 Range/Units 05:45 05:45 05:45 WBC 7.93 (4.23-9.07) K/mm3 RBC 3.53 L (4.63-6.08) M/mm3 Hgb 10.2 L (13.7-17.5) gm/L Hct 30.1 L (40.1-51.0) % MCV 85.3 (79.0-92.2) fl MCH 28.9 (25.7-32.2) pg MCHC 33.9 (32.2-35.5) g/dl RDW Std Deviation 41.7 (35.1-43.9) fL Plt Count 142 L (163-337) K/mm3 MPV 10.1 (9.4-12.3) fl Neut % (Auto) 88.8 H (34.0-67.9) % Lymph % (Auto) 4.8 L (21.8-53.1) % [place] % (Auto) 5.9 (5.3-12.2) % Eos % (Auto) 0.1 L (0.8-7.0) Baso % (Auto) 0.1 (0.1-1.2) % Neut # (Auto) 7.04 H (1.78-5.38) K/mm3 Lymph # (Auto) 0.38 L (1.32-3.57) K/mm3 [place] # (Auto) 0.47 (0.30-0.82) K/mm3 Eos # (Auto) 0.01 L (0.04-0.54) K/mm3 Baso # (Auto) 0.01 (0.01-0.08) K/mm3 Manual Slide Review Abnormal smear Sodium 135 L (136-145) mEq/L Potassium 3.7 (3.5-5.1) mEq/L Chloride 103 (98-107) mEq/L Carbon Dioxide 22 (21-32) mEq/L Anion Gap 13.7 (5-15) BUN 26 H (7-18) mg/dL Creatinine 0.8 (0.7-1.3) mg/dL Est Cr Clr Drug Dosing 85.66 mL/min Estimated GFR (MDRD) > 60 (>60) mL/min BUN/Creatinine Ratio 32.5 H (14-18) Glucose 109 (83-115) mg/dL Lactic Acid 0.7 (0.4-2.0) mmol/L Calcium 8.9 (8.5-10.1) mg/dL Magnesium 1.9 (1.8-2.4) mg/dl C-Reactive Protein 22.7 H* (<1.0) mg/dL Oscar Results Last 24 Hours: Microbiology 11/07/18 13:00 Aerobic Blood Culture - Preliminary Blood - Venous NO GROWTH AFTER 1 DAY Anaerobic Blood Culture - Preliminary NO GROWTH AFTER 1 DAY 11/07/18 13:18 Aerobic Blood Culture - Preliminary Blood - Venous - Lab Draw Gram Negative Rods Anaerobic Blood Culture - Preliminary NO GROWTH AFTER 1 DAY 11/06/18 13:15 Aerobic Blood Culture - Final Blood Escherichia Coli Anaerobic Blood Culture - Preliminary Escherichia Coli Gram Positive Cocci 11/06/18 13:05 Aerobic Blood Culture - Final Blood Escherichia Coli Anaerobic Blood Culture - Preliminary Escherichia Coli 11/06/18 13:40 Urine Culture - Final Urine, Catheterized Escherichia Coli Med Orders - Current: Current Medications Acetaminophen (Tylenol) 650 mg PO Q6H PRN PRN Reason: Pain/Fever Last Admin: 11/07/18 15:54 Dose: 650 mg Hydrocodone Bitart/Acetaminophen ([place] 325-5 Mg) 1 tab PO Q4H PRN PRN Reason: Pain (moderate 4-6) Last Admin: 11/08/18 20:34 Dose: 1 tab Benzocaine (Hurricaine 20% [place]) 0 ml MUCMEM Q4HR PRN PRN Reason: Other Last Admin: 11/08/18 20:58 Dose: 1 spray Docusate Sodium (Colace) 100 mg PO BID PRN PRN Reason: Constipation Last Admin: 11/08/18 20:33 Dose: 100 mg Folic Acid (Folic Acid) 1 mg PO DAILY [facility] Last Admin: 11/08/18 08:32 Dose: 1 mg Gabapentin (Neurontin) 200 mg PO TID [facility] Last Admin: 11/08/18 20:35 Dose: 200 mg Hydralazine HCl (Apresoline) 20 mg IVPUSH Q6H PRN PRN Reason: Hypertension Hydromorphone HCl (Dilaudid) 0.5 mg IVPUSH Q4H PRN PRN Reason: Severe pain Last Admin: 11/08/18 22:35 Dose: 0.5 mg Ceftriaxone Sodium 2 gm/ (Sodium Chloride) 100 mls @ 200 mls/hr IV Q24H [facility] Last Admin: 11/08/18 14:06 Dose: 200 mls/hr Potassium Chloride/Sodium Chloride (Normal Saline With 20 Meq Kcl) 1,000 mls @ 125 mls/hr IV ASDIRECTED [facility] Last Admin: 11/09/18 04:00 Dose: 125 mls/hr Ketorolac Tromethamine (Toradol) 15 mg IVPUSH Q6H [facility] Last Admin: 11/09/18 06:46 Dose: 15 mg Lidocaine (Lidoderm 5%) 700 mg TOP Q24H [facility] Last Admin: 11/08/18 10:49 Dose: 700 mg Lorazepam (Ativan) 0 mg IVPUSH Q6H PRN; Protocol PRN Reason: Anxiety Miscellaneous Information (Remove Patch) 0 ea TRDERM Q24H [facility] Last Admin: 11/08/18 20:59 Dose: 1 ea Multivitamins (Thera) 1 each PO DAILY [facility] Last Admin: 11/08/18 08:32 Dose: 1 each Ondansetron HCl (Zofran) 4 mg IVPUSH Q8H PRN PRN Reason: Nausea/Vomiting Rosuvastatin Calcium (Crestor) 10 mg PO BEDTIME [facility] Last Admin: 11/08/18 20:35 Dose: 10 mg Simethicone (Simethicone) 80 mg PO Q6H PRN PRN Reason: Gas Sodium Chloride (Saline Flush) 10 ml FLUSH ASDIRECTED PRN PRN Reason: Keep Vein Open Last Admin: 11/08/18 16:02 Dose: 10 ml Tamsulosin HCl (Flomax) 0.4 mg PO PCBREAKFAST [facility] Last Admin: 11/08/18 09:00 Dose: 0.4 mg Temazepam (Restoril) 15 mg PO BEDTIME [facility] Last Admin: 11/08/18 20:35 Dose: 15 mg Thiamine HCl (Vitamin B-1) 100 mg PO DAILY [facility] Last Admin: 11/08/18 08:33 Dose: 100 mg Discontinued Medications Acetaminophen (Tylenol) 975 mg PO NOW ONE Stop: 11/06/18 14:59 Last Admin: 11/06/18 15:25 Dose: 975 mg Hydrocodone Bitart/Acetaminophen ([place] 325-5 Mg) 1 tab PO Q6H PRN PRN Reason: Pain (moderate 4-6) Last Admin: 11/07/18 04:20 Dose: 1 tab Bisacodyl (Dulcolax) 10 mg RECTAL ONETIME ONE Stop: 11/08/18 12:42 Last Admin: 11/08/18 12:50 Dose: 10 mg Bisacodyl (Dulcolax) 10 mg RECTAL ONETIME ONE Stop: 11/08/18 17:55 Last Admin: 11/08/18 17:54 Dose: 10 mg Bisacodyl (Dulcolax) 10 mg RECTAL ONETIME ONE Stop: 11/09/18 07:16 Last Admin: 11/09/18 07:39 Dose: 10 mg Ceftriaxone Sodium (Rocephin) 2 gm IVPUSH Q24H [facility]Z Diatrizoate Meglum/Diatrizoate Sod (Gastrografin 37%) 90 ml PO ONETIME ONE Stop: 11/08/18 15:57 Last Admin: 11/08/18 16:02 Dose: 90 ml Enoxaparin Sodium (Lovenox) 40 mg SUBCUT Q24H [facility] Last Admin: 11/07/18 18:17 Dose: 40 mg Gabapentin (Neurontin) 200 mg PO BEDTIME [facility] Last Admin: 11/07/18 20:45 Dose: 200 mg Hydromorphone HCl (Dilaudid) 0.5 mg IVPUSH ONETIME ONE Stop: 11/06/18 14:59 Last Admin: 11/06/18 15:24 Dose: 0.5 mg Hydromorphone HCl (Dilaudid) 0.5 mg IVPUSH Q8H PRN PRN Reason: Pain Hydromorphone HCl (Dilaudid) 0.5 mg IVPUSH Q8H PRN PRN Reason: Pain Last Admin: 11/07/18 04:45 Dose: 0.5 mg Hydromorphone HCl (Dilaudid) 0.5 mg IVPUSH Q6H PRN PRN Reason: Severe pain Last Admin: 11/08/18 02:16 Dose: 0.5 mg Sodium Chloride (Normal Saline) 1,000 mls @ 999 mls/hr IV ONETIME NAZ Last Admin: 11/06/18 13:30 Dose: 999 mls/hr Ceftriaxone Sodium 1 gm/ (Sodium Chloride) 100 mls @ 200 mls/hr IV ONETIME ONE Stop: 11/06/18 15:08 Last Admin: 11/06/18 15:11 Dose: 200 mls/hr Sodium Chloride (Sodium Chloride 0.45%) 1,000 mls @ 125 mls/hr IV ASDIRECTED [facility] Last Admin: 11/07/18 09:52 Dose: 125 mls/hr Sodium Chloride (Normal Saline) 1,000 mls @ 999 mls/hr IV ONETIME ONE Stop: 11/07/18 10:52 Last Admin: 11/07/18 10:25 Dose: 999 mls/hr Sodium Chloride (Sodium Chloride 0.45%) 1,000 mls @ 150 mls/hr IV ASDIRECTED [facility] Last Admin: 11/07/18 18:16 Dose: 150 mls/hr Sodium Chloride (Sodium Chloride 0.45%) 1,000 mls @ 75 mls/hr IV ASDIRECTED [facility] Last Admin: 11/08/18 04:32 Dose: 75 mls/hr Sodium Chloride (Normal Saline) 1,000 mls @ 75 mls/hr IV ASDIRECTED [facility] Influenza Virus Vaccine (Pharmacy To Dose - Influenza Vaccine) 1 each IM ONETIME ONE Stop: 11/06/18 16:35 Influenza Virus Vaccine (Fluzone High-Dose Syringe) 180 mcg IM .ONCE ONE Stop: 11/06/18 16:46 Iopamidol (Isovue-300 (61%)) 100 ml IVPUSH ONETIME ONE Stop: 11/08/18 15:57 Last Admin: 11/08/18 16:48 Dose: Not Given Ketorolac Tromethamine (Toradol) 30 mg IVPUSH Q6H [facility] Last Admin: 11/08/18 08:05 Dose: Not Given Lidocaine HCl (Xylocaine 2% Jelly) Confirm Administered Dose 10 ml .ROUTE .STK- MED ONE Stop: 11/06/18 15:12 Last Admin: 11/06/18 18:00 Dose: Not Given Simethicone (Simethicone) 160 mg PO ONETIME ONE Stop: 11/08/18 13:52 Last Admin: 11/08/18 14:05 Dose: 160 mg Temazepam (Restoril) 30 mg PO BEDTIME NAZ - Exam Quality Assessment: Supplemental Oxygen (1L), Urine Catheter, DVT Prophylaxis General: Alert, Oriented, Cooperative, No Acute Distress, Other (NG tube in place ) HEENT: Pupils Equal, Pupils Reactive, EOMI, Mucous Membr. Moist/Omega Neck: Supple Lungs: Clear to Auscultation, Normal Respiratory Effort Cardiovascular: Regular Rate, Regular Rhythm GI/Abdominal Exam: Non-Tender, No Distention, No Abnormal Bruit, Distended ( although improved over yesterday ), Abnormal Bowel Sounds (Male) Exam: Deferred Back Exam: Normal Inspection, Full Range of Motion Extremities: Normal Inspection, Normal Range of Motion, Non-Tender, No Pedal Edema, Normal Capillary Refill Peripheral Pulses: 2+: Radial (L), Radial (R), Dorsalis Pedis (L), Dorsalis Pedis (R) Skin: Warm, Dry, Intact Neurological: No New Focal Deficit Psy/Mental Status: Alert, Normal Affect, Normal Mood - Problem List & Annotations (1) Bacteremia SNOMED Code(s): 1864603 Code(s): R78.81 - BACTEREMIA Status: Acute Priority: High Current Visit : Yes (2) Dehydration SNOMED Code(s): 10886329 Code(s): E86.0 - DEHYDRATION Status: Acute Priority: High Current Visit : Yes (3) Hyperlipidemia SNOMED Code(s): 52300014 Code(s): E78.5 - HYPERLIPIDEMIA, UNSPECIFIED Status: Chronic Priority: Low Current Visit: No Qualifiers: Hyperlipidemia type: unspecified Qualified Code(s): E78.5 - Hyperlipidemia , unspecified (4) Pyelonephritis SNOMED Code(s): 21413767 Code(s): N12 - TUBULO-INTERSTITIAL NEPHRITIS, NOT SPCF ACUTE OR CHRONIC Status: Acute Priority: High Current Visit: Yes (5) Vomiting SNOMED Code(s): 668768246 Code(s): R11.10 - VOMITING, UNSPECIFIED Status: Resolved Priority: Medium Current Visit: Yes Qualifiers: Vomiting type: unspecified Vomiting Intractability: non-intractable Nausea presence: with nausea Qualified Code(s): R11.2 - Nausea with vomiting, unspecified (6) Ileus SNOMED Code(s): 784081442 Code(s): K56.7 - ILEUS, UNSPECIFIED Status: Acute Priority: High Current Visit: Yes - Problem List Review Problem List Initiated/Reviewed/Updated: Yes - My Orders Last 24 Hours: My Active Orders 11/08/18 09:30 Docusate Sodium [Colace] 100 mg PO BID PRN 11/08/18 13:50 RT Incentive Spirometry [RC] ASDIRECTED 11/08/18 13:52 Simethicone 80 mg PO Q6H PRN 11/08/18 14:22 CULTURE BLOOD [BC] Stat Blood Culture x2 Reflex Set [OM.PC] Stat 11/08/18 15:00 CULTURE BLOOD [BC] Routine Gabapentin [Neurontin] 200 mg PO TID 11/08/18 15:09 CULTURE BLOOD [BC] Stat - Plan Plan:: Impression: Flank pain with history of straight catheterizations Increase frequency/urgency Pyelonephritis - E. Coli sensitive to rocephin History of chronic back pain Bacteremia - E. Coli in 4/4 bottles; Negative repeat after one day Gram positive rods in 1/4 bottles (suspect contamination but will monitor) Ileus Chronic HLD Plan: IVF Rocephin 2 gm daily Fluids as ordered Varghese catheter in place 2/2 chronic urinary retention - Dr. Madden office requests leave in , E. Coli - sensitive to Rocephin O2 as needed Pain meds Add IS Home meds Daily Labs GI consult, NG tube for ileus Consult PT/OT/CM DVT/GI prophylaxis Code status: Full code; PCP: Migdalia Sanchez PA-C
[2018-11-09] MEDS: Gabapentin 100 MG Cap PO SCH ×3 (08:20→20:57)
[2018-11-09] MEDS: Thiamine 100 MG Tab PO SCH (08:20)
[2018-11-09] MEDS: Folic Acid 1 MG Tab PO SCH (08:20)
[2018-11-09] MEDS: Multivitamins,Therapeutic Tab PO SCH (08:20)
[2018-11-09] MEDS: Acetaminophen/HYDROcodone 325-5 MG Tab PO PRN ×2 (08:24→15:44)
[2018-11-09] MEDS: Tamsulosin 0.4 MG Cap.ER PO SCH ×2 (08:25→09:11)
[2018-11-09] MEDS: Lidocaine 5% 700 MG Patch TOP SCH (08:45)
--- NOTE | 2018-11-09 10:18 | CR ---
Abdomen: Supine view of the abdomen was obtained. Comparison: Prior abdominal x-ray of 11/08/[address] abdomen and pelvis exam of 11/08/18. Increasing gaseous dilatation of colon and small bowel is noted. Left hip prosthesis is seen. Nasogastric tube is noted with tip lying within the stomach. Previous cholecystectomy is noted. Diffuse degenerative change within the spine is seen. Impression: 1. Increasing gaseous dilatation of colon and small bowel. Findings presumably represent worsening ileus. 2. Nasogastric tube with tip lying within the stomach. Diagnostic code #3
--- NOTE | 2018-11-09 10:46 | CONS ---
CONSULTING PHYSICIAN: Malissa Bird MD DATE OF CONSULTATION: 11/08/2018 CHIEF COMPLAINT: Abdominal distention. HISTORY OF PRESENT ILLNESS: The patient is a pleasant, 82-year-old male, who of note at home straight cathed. He was admitted here Wednesday because of possible sepsis. He complained of low back pain and nausea and vomiting that had started about 4 days prior to his admission on Wednesday and had been worsening for 2 days. He stated that he had fevers at home. Of note, it was noted also that he had positive blood cultures. These were noted to be consistent with E coli. Since the patient has been here, his overall septic picture has improved. He is not acidotic and his BUN and creatinine have normalized. He has, however, developed significant abdominal distention. In discussing with the family, the patient states that after he eats, he always bloats, so this is something that is not new to him. He states then he will have to get up and walk around and then he will pass gas and feel better. Having said that, I do not know when the last time is that he ever had a colonoscopy. He also denies having any hernias that give him any trouble other than in the umbilical area. According to the family, he probably has not had a bowel movement since last Wednesday. The patient has been taking some pill and has not vomited at this point, but he states that he just felt more bloated today, and subsequently a chest KUB was done, which demonstrated a picture consistent with a colonic ileus. He has also had a CT scan of his abdomen and pelvis, and again I think it will best confirm this as well as there is gas going all the way to the rectum. We are awaiting the official reading. It also does demonstrate he has some cysts in his liver as well as that he does have some distended small bowel. PAST MEDICAL HISTORY: ALLERGIES: No known allergies. MEDICATIONS: Here include Tylenol, Neurontin, Apresoline, Dilaudid, Toradol, simethicone, Flomax, thiamine, Restoril, and some Dulcolax suppositories. PAST SURGICAL HISTORY: He has had a total knee and a hip. He has also had ORIF of wound to his hand years ago. He has had a laparoscopic cholecystectomy and he has had back surgery. From what we can tell, we believe only this laparoscopic alayna was probably done here. SOCIAL HISTORY: He has 3 children alive and well and his . He has a full ventilated rib fitter at home. 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 The reason for the self catheterization is still a little bit unclear. REVIEW OF SYSTEMS: He is a little bit confused, I am not able to get a whole lot from him. He just complains of this abdominal distention. I do not see that he has had any longstanding history of recurrent pneumonias. He does not smoke. He does drink alcohol on a regular basis i.e. beer. PHYSICAL EXAMINATION: HEENT: His sclerae are white. His oral mucosa is quite dry. NECK: His neck is without mass. LUNGS: Diminished breath sounds bilaterally. He has a harsh systolic murmur. ABDOMEN: Markedly distended. There are occasional bowel sounds albeit a bit high pitched. There is a reducible umbilical, nontender hernia. There are no signs of hernia in the groin. His ankles are free of edema. RECTAL: The patient was placed on his left side down and I did a rectal. There is some mucus and some soft liquid stool in the rectum, but otherwise I did not have any flatus. I did insert the suppository. LABORATORY DATA: Labs done. His WBC has remained at about 5.9, his H and H are 10 and 31. His platelet count is 118. His electrolytes, his potassium is normal at 3.8, BUN and creatinine are 25 and 0.9, which is improved since he has been here. C- reactive protein remains at 23. IMPRESSION AND PLAN: Urosepsis, which clinically appears that he has ileus or colonic ileus. Having said that, we need to monitor him very closely and I agree that he should have an NG tube and continue with the rehydration process. I would recommend a repeat KUB in the morning to make sure that we can see if the overall size of the colon gets to the point where we would need to do a decompressive colonoscopy. He has his longstanding history of abdominal bloating, so hopefully there is not some additional chronic problem that needs to be addressed. His daughter and the son were in the room when I discussed these possibilities and they are aware. We will continue with serial examinations and monitor him closely. I tried to answer all the questions of the family and we will go from there. I also discussed with him that one of the risk is perforation and this is what we will have to monitor him closely for. SANTA /[id number]
[2018-11-09] MEDS ORDERED: Magnesium Citrate Solution 296 ML Bottle NGTUBE ONE (11:00)
[2018-11-09] MEDS: cefTRIAXone 2 GM in Sodium Chloride 0.9% 100 ML IV SCH (15:44)
[2018-11-09] MEDS: HYDROmorphone 1 MG/ML Syringe IVPUSH PRN ×2 (16:58→21:14)
--- NOTE | 2018-11-09 18:14 | CR ---
Abdomen: Supine and upright views of the abdomen were obtained. Comparison: Previous abdominal x-ray performed earlier on the same day (9:42 AM). Gaseous dilatation of colon as well as small bowel loops are seen. Gas is seen within the rectum. Degenerative change is scattered within the spine. Left hip prosthesis noted. Surgical clips from prior cholecystectomy are noted. Nasogastric tube is seen within the stomach. Impression: 1. Diffuse gaseous dilatation of colon and small bowel which appears without significant change from previous study. Etiology is not seen on this exam but presumably represents ileus. Please correlate that patient has no etiology to indicate diffuse bowel ischemia as an etiology. Diagnostic code #3
--- NOTE | 2018-11-09 20:51 | PCM.PN ---
- General Info Date of Service: 11/09/18 - Patient Data Vitals - Most Recent: Last Vital Signs Temp 99.0 F 11/09/18 15:51 Pulse 89 11/09/18 15:53 Resp 14 11/09/18 11:44 BP 122/66 11/09/18 15:53 Pulse Ox 96 11/09/18 15:53 Weight - Most Recent: 276 lb 8 oz I&O - Last 24 Hours: Intake & Output 11/09/18 11/09/18 11/09/18 06:59 14:59 22:59 Intake Total 1413 1624 Output Total 3822 600 7715 Balance -57 -915 229 Lab Results Last 24 Hours: Laboratory Results - last 24 hr 11/09/18 11/09/18 11/09/18 Range/Units 05:45 05:45 05:45 WBC 7.93 (4.23-9.07) K/mm3 RBC 3.53 L (4.63-6.08) M/mm3 Hgb 10.2 L (13.7-17.5) gm/L Hct 30.1 L (40.1-51.0) % MCV 85.3 (79.0-92.2) fl MCH 28.9 (25.7-32.2) pg MCHC 33.9 (32.2-35.5) g/dl RDW Std Deviation 41.7 (35.1-43.9) fL Plt Count 142 L (163-337) K/mm3 MPV 10.1 (9.4-12.3) fl Neut % (Auto) 88.8 H (34.0-67.9) % Lymph % (Auto) 4.8 L (21.8-53.1) % [place] % (Auto) 5.9 (5.3-12.2) % Eos % (Auto) 0.1 L (0.8-7.0) Baso % (Auto) 0.1 (0.1-1.2) % Neut # (Auto) 7.04 H (1.78-5.38) K/mm3 Lymph # (Auto) 0.38 L (1.32-3.57) K/mm3 [place] # (Auto) 0.47 (0.30-0.82) K/mm3 Eos # (Auto) 0.01 L (0.04-0.54) K/mm3 Baso # (Auto) 0.01 (0.01-0.08) K/mm3 Manual Slide Review Abnormal smear Sodium 135 L (136-145) mEq/L Potassium 3.7 (3.5-5.1) mEq/L Chloride 103 (98-107) mEq/L Carbon Dioxide 22 (21-32) mEq/L Anion Gap 13.7 (5-15) BUN 26 H (7-18) mg/dL Creatinine 0.8 (0.7-1.3) mg/dL Est Cr Clr Drug Dosing 85.66 mL/min Estimated GFR (MDRD) > 60 (>60) mL/min BUN/Creatinine Ratio 32.5 H (14-18) Glucose 109 (83-115) mg/dL Lactic Acid 0.7 (0.4-2.0) mmol/L Calcium 8.9 (8.5-10.1) mg/dL Magnesium 1.9 (1.8-2.4) mg/dl C-Reactive Protein 22.7 H* (<1.0) mg/dL Oscar Results Last 24 Hours: Microbiology 11/07/18 13:00 Aerobic Blood Culture - Preliminary Blood - Venous Gram Negative Rods Anaerobic Blood Culture - Preliminary NO GROWTH AFTER 2 DAYS 11/08/18 15:09 Aerobic Blood Culture - Preliminary Blood - Venous NO GROWTH AFTER 1 DAY Anaerobic Blood Culture - Preliminary NO GROWTH AFTER 1 DAY 11/08/18 15:00 Aerobic Blood Culture - Preliminary Blood NO GROWTH AFTER 1 DAY Anaerobic Blood Culture - Preliminary NO GROWTH AFTER 1 DAY 11/06/18 13:05 Aerobic Blood Culture - Final Blood Escherichia Coli Anaerobic Blood Culture - Preliminary Escherichia Coli Gram Positive Cocci 11/07/18 13:18 Aerobic Blood Culture - Final Blood - Venous - Lab Draw Escherichia Coli Anaerobic Blood Culture - Preliminary NO GROWTH AFTER 2 DAYS 11/06/18 13:15 Aerobic Blood Culture - Final Blood Escherichia Coli Anaerobic Blood Culture - Preliminary Escherichia Coli Gram Positive Cocci Med Orders - Current: Current Medications Acetaminophen (Tylenol) 650 mg PO Q6H PRN PRN Reason: Pain/Fever Last Admin: 11/07/18 15:54 Dose: 650 mg Benzocaine (Hurricaine 20% [place]) 0 ml MUCMEM Q4HR PRN PRN Reason: Other Last Admin: 11/08/18 20:58 Dose: 1 spray Docusate Sodium (Colace) 100 mg PO BID PRN PRN Reason: Constipation Last Admin: 11/08/18 20:33 Dose: 100 mg Folic Acid (Folic Acid) 1 mg PO DAILY [facility] Last Admin: 11/09/18 08:20 Dose: 1 mg Gabapentin (Neurontin) 200 mg PO TID [facility] Last Admin: 11/09/18 15:44 Dose: 200 mg Hydralazine HCl (Apresoline) 20 mg IVPUSH Q6H PRN PRN Reason: Hypertension Hydromorphone HCl (Dilaudid) 0.5 mg IVPUSH Q4H PRN PRN Reason: Severe pain Last Admin: 11/09/18 16:58 Dose: 0.5 mg Ceftriaxone Sodium 2 gm/ (Sodium Chloride) 100 mls @ 200 mls/hr IV Q24H [facility] Last Admin: 11/09/18 15:44 Dose: 200 mls/hr Potassium Chloride/Sodium Chloride (Normal Saline With 20 Meq Kcl) 1,000 mls @ 125 mls/hr IV ASDIRECTED [facility] Last Admin: 11/09/18 12:22 Dose: 125 mls/hr Ketorolac Tromethamine (Toradol) 15 mg IVPUSH Q6H [facility] Last Admin: 11/09/18 19:57 Dose: 15 mg Lidocaine (Lidoderm 5%) 700 mg TOP Q24H [facility] Last Admin: 11/09/18 08:45 Dose: 700 mg Lorazepam (Ativan) 0 mg IVPUSH Q6H PRN; Protocol PRN Reason: Anxiety Miscellaneous Information (Remove Patch) 0 ea TRDERM Q24H [facility] Last Admin: 11/08/18 20:59 Dose: 1 ea Multivitamins (Thera) 1 each PO DAILY [facility] Last Admin: 11/09/18 08:20 Dose: 1 each Ondansetron HCl (Zofran) 4 mg IVPUSH Q8H PRN PRN Reason: Nausea/Vomiting Rosuvastatin Calcium (Crestor) 10 mg PO BEDTIME [facility] Last Admin: 11/08/18 20:35 Dose: 10 mg Simethicone (Simethicone) 80 mg PO Q6H PRN PRN Reason: Gas Sodium Chloride (Saline Flush) 10 ml FLUSH ASDIRECTED PRN PRN Reason: Keep Vein Open Last Admin: 11/08/18 16:02 Dose: 10 ml Tamsulosin HCl (Flomax) 0.4 mg PO PCBREAKFAST [facility] Last Admin: 11/09/18 09:11 Dose: Not Given Temazepam (Restoril) 15 mg PO BEDTIME [facility] Last Admin: 11/08/18 20:35 Dose: 15 mg Thiamine HCl (Vitamin B-1) 100 mg PO DAILY [facility] Last Admin: 11/09/18 08:20 Dose: 100 mg Discontinued Medications Acetaminophen (Tylenol) 975 mg PO NOW ONE Stop: 11/06/18 14:59 Last Admin: 11/06/18 15:25 Dose: 975 mg Hydrocodone Bitart/Acetaminophen ([place] 325-5 Mg) 1 tab PO Q6H PRN PRN Reason: Pain (moderate 4-6) Last Admin: 11/07/18 04:20 Dose: 1 tab Hydrocodone Bitart/Acetaminophen ([place] 325-5 Mg) 1 tab PO Q4H PRN PRN Reason: Pain (moderate 4-6) Last Admin: 11/09/18 15:44 Dose: 1 tab Bisacodyl (Dulcolax) 10 mg RECTAL ONETIME ONE Stop: 11/08/18 12:42 Last Admin: 11/08/18 12:50 Dose: 10 mg Bisacodyl (Dulcolax) 10 mg RECTAL ONETIME ONE Stop: 11/08/18 17:55 Last Admin: 11/08/18 17:54 Dose: 10 mg Bisacodyl (Dulcolax) 10 mg RECTAL ONETIME ONE Stop: 11/09/18 07:16 Last Admin: 11/09/18 07:39 Dose: 10 mg Ceftriaxone Sodium (Rocephin) 2 gm IVPUSH Q24H [facility] Diatrizoate Meglum/Diatrizoate Sod (Gastrografin 37%) 90 ml PO ONETIME ONE Stop: 11/08/18 15:57 Last Admin: 11/08/18 16:02 Dose: 90 ml Enoxaparin Sodium (Lovenox) 40 mg SUBCUT Q24H [facility] Last Admin: 11/07/18 18:17 Dose: 40 mg Gabapentin (Neurontin) 200 mg PO BEDTIME [facility] Last Admin: 11/07/18 20:45 Dose: 200 mg Hydromorphone HCl (Dilaudid) 0.5 mg IVPUSH ONETIME ONE Stop: 11/06/18 14:59 Last Admin: 11/06/18 15:24 Dose: 0.5 mg Hydromorphone HCl (Dilaudid) 0.5 mg IVPUSH Q8H PRN PRN Reason: Pain Hydromorphone HCl (Dilaudid) 0.5 mg IVPUSH Q8H PRN PRN Reason: Pain Last Admin: 11/07/18 04:45 Dose: 0.5 mg Hydromorphone HCl (Dilaudid) 0.5 mg IVPUSH Q6H PRN PRN Reason: Severe pain Last Admin: 11/08/18 02:16 Dose: 0.5 mg Sodium Chloride (Normal Saline) 1,000 mls @ 999 mls/hr IV ONETIME [facility] Last Admin: 11/06/18 13:30 Dose: 999 mls/hr Ceftriaxone Sodium 1 gm/ (Sodium Chloride) 100 mls @ 200 mls/hr IV ONETIME ONE Stop: 11/06/18 15:08 Last Admin: 11/06/18 15:11 Dose: 200 mls/hr Sodium Chloride (Sodium Chloride 0.45%) 1,000 mls @ 125 mls/hr IV ASDIRECTED [facility] Last Admin: 11/07/18 09:52 Dose: 125 mls/hr Sodium Chloride (Normal Saline) 1,000 mls @ 999 mls/hr IV ONETIME ONE Stop: 11/07/18 10:52 Last Admin: 11/07/18 10:25 Dose: 999 mls/hr Sodium Chloride (Sodium Chloride 0.45%) 1,000 mls @ 150 mls/hr IV ASDIRECTED [facility] Last Admin: 11/07/18 18:16 Dose: 150 mls/hr Sodium Chloride (Sodium Chloride 0.45%) 1,000 mls @ 75 mls/hr IV ASDIRECTED [facility] Last Admin: 11/08/18 04:32 Dose: 75 mls/hr Sodium Chloride (Normal Saline) 1,000 mls @ 75 mls/hr IV ASDIRECTED [facility] Influenza Virus Vaccine (Pharmacy To Dose - Influenza Vaccine) 1 each IM ONETIME ONE Stop: 11/06/18 16:35 Influenza Virus Vaccine (Fluzone High-Dose Syringe) 180 mcg IM .ONCE ONE Stop: 11/06/18 16:46 Iopamidol (Isovue-300 (61%)) 100 ml IVPUSH ONETIME ONE Stop: 11/08/18 15:57 Last Admin: 11/08/18 16:48 Dose: Not Given Ketorolac Tromethamine (Toradol) 30 mg IVPUSH Q6H [facility] Last Admin: 11/08/18 08:05 Dose: Not Given Lidocaine HCl (Xylocaine 2% Jelly) Confirm Administered Dose 10 ml .ROUTE .STK- MED ONE Stop: 11/06/18 15:12 Last Admin: 11/06/18 18:00 Dose: Not Given Magnesium Citrate (Citrate Of Magnesia) 296 ml NGTUBE ONETIME ONE Stop: 11/09/18 11:01 Last Admin: 11/09/18 11:30 Dose: 296 ml Simethicone (Simethicone) 160 mg PO ONETIME ONE Stop: 11/08/18 13:52 Last Admin: 11/08/18 14:05 Dose: 160 mg Temazepam (Restoril) 30 mg PO BEDTIME [facility] - Problem List Review Problem List Initiated/Reviewed/Updated: Yes - My Orders Last 24 Hours: My Active Orders 11/08/18 20:07 Communication Order [RC] BID - Assessment Assessment:: The patient stated that he has passed a bit of gas since i last saw him exam--still distended but improved from before ileus--still worrisome continue with serial exam i discussed with his daughter he still may need a scope ("bloating has been a problem for some time ") - Plan Plan:: Impression: Flank pain with history of straight catheterizations Increase frequency/urgency Pyelonephritis - E. Coli sensitive to rocephin History of chronic back pain Bacteremia - E. Coli in 4/4 bottles; Negative repeat after one day Gram positive rods in 1/4 bottles (suspect contamination but will monitor) Ileus Chronic HLD Plan: IVF Rocephin 2 gm daily Fluids as ordered [place] catheter in place 2/2 chronic urinary retention - Dr. Madden office requests leave in , E. Coli - sensitive to Rocephin O2 as needed Pain meds Add IS Home meds Daily Labs GI consult, NG tube for ileus Consult PT/OT/CM DVT/GI prophylaxis Code status: Full code; PCP: Migdalia Sanchez PA-C
[2018-11-09] MEDS: Rosuvastatin 10 MG Tab PO SCH (20:58)
[2018-11-09] MEDS: Temazepam 15 MG Cap PO SCH (20:58)
[2018-11-09] MEDS: Docusate Sodium 100 MG Cap PO PRN (20:59)
[2018-11-10] MEDS: Ketorolac 15 MG/ML SDV IVPUSH SCH ×4 (01:12→18:21)
[2018-11-10] MEDS: NS + KCl 20mEq/L 1,000 ML IV SCH ×3 (04:55→20:02)
[2018-11-10] MEDS: HYDROmorphone 1 MG/ML Syringe IVPUSH PRN ×3 (07:42→20:32)
--- NOTE | 2018-11-10 07:49 | PN ---
DATE OF SERVICE: 11/09/2018 SURGICAL CONSULTATION FOLLOWUP NOTE CHIEF COMPLAINT: Ileus. SUBJECTIVE: The patient is an 82-year-old male whom I saw last evening for consultation for ileus. The patient was admitted here with overwhelming E coli sepsis secondary to his urinary tract. This is improved, but he is definitely had a distended abdomen. NG tube was placed and over the course of the last 24 hours over a liter has been obtained. This morning, the patient states he feels better, although he has not said he has been passing active gas. Of note, the patient's mental status is improved this morning. His daughter is at the bedside while I am there. PHYSICAL EXAMINATION: GENERAL: Obviously, he looks more comfortable. ABDOMEN: Still distended. There is no guarding or rebound, but it is still tympanitic. KUB, I have now reviewed and actually it looks more diffuse to have small and large bowel distention, but decrease of the transverse colon on my visual eye. IMPRESSION AND PLAN: This maybe slightly better clinically due to the NG tube. I think what we should do at this point is we continue with dulcolax suppository and we will try a small little dose of Mag citrate. We will continue with our serial examinations. At this point in time, there is nothing surgical, but we are going to continue to monitor him closely and in case we would think that he would need a decompressive colonoscopy at this point because of somewhat improvement. We will monitor him closely. This is followup visit on the patient dictated by Dr. Bird. I have reviewed the films, evaluated the patient, discussed with Dr. Cordova and Mr. Freitas and will go from there. SANTA /[id number]
--- NOTE | 2018-11-10 07:52 | PN ---
DATE OF SERVICE: 11/09/2018 I was called because of increasing discomfort in the patient. I had seen the patient at about 3:30-4:00 and his exam was actually improving. He was not having any pain. However, shortly thereafter, I guess he became suddenly having some more distention and some discomfort. A KUB was done, which is unchanged. On my physical exam, actually he did have increasing distention. It was more tympanitic like it was earlier in the morning. I then placed the patient on his left side down after I discussed with his daughter I would like to do another rectal, and on rectal exam, I was able to forcibly put 2 fingers in the rectal canal and actually got a large amount of flatus as well as liquid stool. It was quite the deal. It kind of shot out for about 12 to 16 inches. This gave the patient some immediate relief. I then went ahead and because I did not have the strength to keep the anus open, I did attempt to have a rectal tube where I just placed the rectal tube in about 6 cm to see if that would help, but it did not. So, I just removed the rectal tube and did another rectal and again it seemed that everything was evacuated from the vault and we will see how things go. We will give a [place] Enema to see if this profound ileus is starting to resolve. We will still continue to monitor him. On my exam, after the explosion of air from the rectum, certainly he clinically feels better, but hopefully this does not reaccumulate and he continues to pass gas. Of note, we will still be monitoring to see whether we need to do a decompressive colonoscopy. SANTA /[id number]
--- NOTE | 2018-11-10 08:52 | CR ---
Abdomen: Supine view of the abdomen was obtained. Comparison: Prior abdominal x-ray of 11/09/18. Diffuse gaseous dilatation of small bowel and colon are noted. No significant change from previous exam is seen. Nasogastric tube has been withdrawn with tip slightly past the gastroesophageal junction. Surgical clips remain stable. 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 Joint space narrowing is seen within the right hip. Impression: 1. Continuing diffuse gaseous dilatation of colon and small bowel. No change is seen from previous study. 2. Withdrawal of the nasogastric tube. Tip lies slightly past the gastroesophageal junction. 3. Other portions of the study are stable. Diagnostic code #3
[2018-11-10] MEDS ORDERED: Lactated Ringers 500 ML IV ONE (09:52)
[2018-11-10] MEDS ORDERED: Propofol 200 MG/20 ML SDV ONE ×2 (09:57→11:05)
[2018-11-10] MEDS ORDERED: Lidocaine 1% 4 ML ONE (09:57)
[2018-11-10] MEDS ORDERED: Lactated Ringers 1,000 ML ONE (09:58)
--- NOTE | 2018-11-10 10:06 | PCM.PREANE ---
Preanesthetic Assessment - Anesthesia/Transfusion/Family Hx Anesthesia History: Prior Anesthesia Without Reaction Family History of Anesthesia Reaction: No Transfusion History: No Prior Transfusion(s) - Review of Systems General: Weakness Pulmonary: No Symptoms Cardiovascular: No Symptoms Gastrointestinal: Abdominal Pain, Constipation, Other (Ileus, NGT in place. ) Neurological: Pre-Existing Deficit, Difficulty Walking (Chronic back pain, multiple back surgeries. ), Other (Neuropathy in his feet. ) Other: Reports: None (Pyelonephritis, bactremia, currently on IV antibiotics. ) - Physical Assessment NPO Status Date: 11/08/18 NPO Status Time: 17:00 Pulse: 93 O2 Sat by Pulse Oximetry: 94 Respiratory Rate: 20 Blood Pressure: 157/66 Temperature: 36.4 C Vital Signs: Last Vital Signs Temp 36.4 C 11/10/18 01:21 Pulse 93 11/10/18 01:21 Resp 20 11/10/18 01:21 BP 157/66 H 11/10/18 01:21 Pulse Ox 94 L 11/10/18 01:21 Height: 1.88 m Weight: 123.468 kg ASA Class: 3 Mental Status: Alert & Oriented x3 Airway Class: Mallampati = 2 Dentition: Reports: Implants, Missing Tooth/Teeth Thyro-Mental Finger Breadths: 3 Mouth Opening Finger Breadths: 3 ROM/Head Extension: Limited/Partial (Stiff neck, limitied ROM.) Lungs: Clear to Auscultation, Normal Respiratory Effort, Decreased Breath Sounds , Crackles Cardiovascular: Regular Rhythm - Lab Values: Laboratory Last Values WBC 9.03 K/mm3 (4.23-9.07) 11/10/18 05:41 RBC 3.71 M/mm3 (4.63-6.08) L 11/10/18 05:41 Hgb 10.8 gm/L (13.7-17.5) L 11/10/18 05:41 Hct 31.8 % (40.1-51.0) L 11/10/18 05:41 MCV 85.7 fl (79.0-92.2) 11/10/18 05:41 MCH 29.1 pg (25.7-32.2) 11/10/18 05:41 MCHC 34.0 g/dl (32.2-35.5) 11/10/18 05:41 RDW Std Deviation 41.6 fL (35.1-43.9) 11/10/18 05:41 Plt Count 205 K/mm3 (163-337) 11/10/18 05:41 MPV 10.0 fl (9.4-12.3) 11/10/18 05:41 Neut % (Auto) 88.8 % (34.0-67.9) H 11/10/18 05:41 Lymph % (Auto) 6.1 % (21.8-53.1) L 11/10/18 05:41 [place] % (Auto) 4.2 % (5.3-12.2) L 11/10/18 05:41 Eos % (Auto) 0.4 (0.8-7.0) L 11/10/18 05:41 Baso % (Auto) 0.1 % (0.1-1.2) 11/10/18 05:41 Neut # (Auto) 8.01 K/mm3 (1.78-5.38) H 11/10/18 05:41 Lymph # (Auto) 0.55 K/mm3 (1.32-3.57) L 11/10/18 05:41 [place] # (Auto) 0.38 K/mm3 (0.30-0.82) 11/10/18 05:41 Eos # (Auto) 0.04 K/mm3 (0.04-0.54) 11/10/18 05:41 Baso # (Auto) 0.01 K/mm3 (0.01-0.08) 11/10/18 05:41 Neutrophils % (Manual) 74 % (40-60) H 11/06/18 13:05 Band Neutrophils % 21 % (0-10) H 11/06/18 13:05 Lymphocytes % (Manual) 2 % (20-40) L 11/06/18 13:05 Atypical Lymphs % 0 % 11/06/18 13:05 Monocytes % (Manual) 3 % (2-10) 11/06/18 13:05 Eosinophils % (Manual) 0 % (0.8-7.0) L 11/06/18 13:05 Basophils % (Manual) 0 (0.2-1.2) L 11/06/18 13:05 Manual Slide Review Abnormal smear 11/10/18 05:41 Toxic Granulation 2+ moderate 11/06/18 13:05 Platelet Estimate Decreased 11/06/18 13:05 RBC Morph Comment Normal 11/06/18 13:05 Sodium 144 mEq/L (136-145) 11/10/18 05:41 Potassium 3.8 mEq/L (3.5-5.1) 11/10/18 05:41 Chloride 108 mEq/L (98-107) H 11/10/18 05:41 Carbon Dioxide 24 mEq/L (21-32) 11/10/18 05:41 Anion Gap 15.8 (5-15) H 11/10/18 05:41 BUN 32 mg/dL (7-18) H 11/10/18 05:41 Creatinine 0.9 mg/dL (0.7-1.3) 11/10/18 05:41 Est Cr Clr Drug Dosing 76.14 mL/min 11/10/18 05:41 Estimated GFR (MDRD) > 60 mL/min (>60) 11/10/18 05:41 BUN/Creatinine Ratio 35.6 (14-18) H 11/10/18 05:41 Glucose 116 mg/dL (83-115) H 11/10/18 05:41 Lactic Acid 1.1 mmol/L (0.4-2.0) 11/10/18 05:41 Calcium 9.1 mg/dL (8.5-10.1) 11/10/18 05:41 Magnesium 2.3 mg/dl (1.8-2.4) 11/10/18 05:41 Total Bilirubin 1.7 mg/dL (0.2-1.0) H 11/06/18 13:05 AST 29 U/L (15-37) 11/06/18 13:05 ALT 24 U/L (16-63) 11/06/18 13:05 Alkaline Phosphatase 109 U/L (46-116) 11/06/18 13:05 C-Reactive Protein 20.9 mg/dL (<1.0) H* 11/10/18 05:41 Total Protein 6.3 g/dl (6.4-8.2) L 11/06/18 13:05 Albumin 2.7 g/dl (3.4-5.0) L 11/06/18 13:05 Globulin 3.6 gm/dL 11/06/18 13:05 Albumin/Globulin Ratio 0.8 (1-2) L 11/06/18 13:05 Urine Color [place] (Yellow) H 11/06/18 13:40 Urine Appearance Cloudy (Clear) H 11/06/18 13:40 Urine pH 5.5 (5.0-8.0) 11/06/18 13:40 Ur Specific [place] 1.020 (1.005-1.030) 11/06/18 13:40 Urine Protein 2+ (Negative) H 11/06/18 13:40 Urine Glucose (UA) Negative (Negative) 11/06/18 13:40 Urine Ketones 1+ (Negative) H 11/06/18 13:40 Urine Occult Blood 3+ (Negative) H 11/06/18 13:40 Urine Nitrite Negative (Negative) 11/06/18 13:40 Urine Bilirubin 1+ (Negative) H 11/06/18 13:40 Urine Urobilinogen 2.0 (0.2-1.0) H 11/06/18 13:40 Ur Leukocyte Esterase 3+ (Negative) H 11/06/18 13:40 Urine RBC 0-5 /hpf (0-5) 11/06/18 13:40 Urine WBC 20-30 /hpf (0-5) H 11/06/18 13:40 Urine WBC Clumps Moderate /hpf (NOT SEEN) 11/06/18 13:40 Ur Epithelial Cells Not seen /hpf (0-5) 11/06/18 13:40 Urine Bacteria Moderate /hpf (FEW) H 11/06/18 13:40 Hyaline Casts 0-5 /lpf (0-5) 11/06/18 13:40 Coarse Granular Casts 0-5 /hpf (0-5) 11/06/18 13:40 Urine Mucus Not seen /hpf (FEW) 11/06/18 13:40 - Allergies Allergies/Adverse Reactions: Allergies Allergy/AdvReac Type Severity Reaction Status Date / Time No Known Allergies Allergy Verified 11/06/18 16:33 - Acknowledgements Anesthesia Type Planned: MAC Pt an Appropriate Candidate for the Planned Anesthesia: Yes Alternatives and Risks of Anesthesia Discussed w Pt/Guardian: Yes Pt/Guardian Understands and Agrees with Anesthesia Plan: Yes Additional Comments: Daughter Seema present at the bedside. States he wakes up a little confused from anesthesia, but comes around the same day. PreAnesthesia Questionnaire HEENT History: Reports: Impaired Vision Other HEENT History: wears glasses Cardiovascular History: Reports: High Cholesterol, Other (See Below) Other Cardiovascular History: rheumatic fever as child Genitourinary History: Reports: Retention, Urinary, Other (See Below) Other Genitourinary History: straight cath's three times a day at home Musculoskeletal History: Reports: Arthritis, Back Pain, Chronic Neurological History: Reports: Neuropathy, Peripheral, Other (See Below) Other Neuro History: nerve damage Hematologic History: Reports: B12 Deficiency Other Hematologic History: "blood poisioning" x2 - Infectious Disease History Infectious Disease History: Reports: Rheumatic Fever - Past Surgical History HEENT Surgical History: Reports: Cataract Surgery Cardiovascular Surgical History: Reports: None GI Surgical History: Reports: Cholecystectomy, Colonoscopy, Other (See Below) Other GI Surgeries/Procedures: hernia repair Male Surgical History: Reports: None Neurological Surgical History: Reports: Other (See Below) Other Neurological Surgeries/Procedures: several back surgeries Musculoskeletal Surgical History: Reports: Carpal Tunnel, Other (See Below) Other Musculoskeletal Surgeries/Procedures:: left hip replaced, right knee replaced, left pinkie finger has a screw in it - SUBSTANCE USE Smoking Status *Q: Never Smoker Tobacco Use Within Last Twelve Months: Cigarettes Days Per Week of Alcohol Use: 7 Number of Drinks Per Day: 4 Total Drinks Per Week: 28 Recreational Drug Use History: No - HOME MEDS Home Medications: Home Meds Acetaminophen [Tylenol] 650 mg PO DAILY 11/06/18 [History] Ascorbate Calcium [Vitamin C] 500 mg PO DAILY 11/06/18 [History] Cholecalciferol (Vitamin D3) [Vitamin D] 5,000 units PO DAILY 11/06/18 [History] Cyanocobalamin (Vitamin B12) [Vitamin B12] 1,000 mcg PO DAILY 11/06/18 [History] Fluticasone Propionate [Flonase Allergy Relief] 2 spray NASBOTH DAILY 11/06/18 [ History] Ibuprofen/Diphenhydramine Cit [Advil Pm Caplet] 2 tab PO BEDTIME 11/06/18 [ History] Rosuvastatin Calcium 10 mg PO BEDTIME 11/06/18 [History] Temazepam [Restoril] 30 mg PO BEDTIME 11/06/18 [History] - CURRENT (IN HOUSE) MEDS Current Meds: Current Medications Acetaminophen (Tylenol) 650 mg PO Q6H PRN PRN Reason: Pain/Fever Last Admin: 11/07/18 15:54 Dose: 650 mg Benzocaine (Hurricaine 20% [place]) 0 ml MUCMEM Q4HR PRN PRN Reason: Other Last Admin: 11/08/18 20:58 Dose: 1 spray Docusate Sodium (Colace) 100 mg PO BID PRN PRN Reason: Constipation Last Admin: 11/09/18 20:59 Dose: 100 mg Folic Acid (Folic Acid) 1 mg PO DAILY [facility] Last Admin: 11/09/18 08:20 Dose: 1 mg Gabapentin (Neurontin) 200 mg PO TID [facility] Last Admin: 11/09/18 20:57 Dose: 200 mg Hydralazine HCl (Apresoline) 20 mg IVPUSH Q6H PRN PRN Reason: Hypertension Hydromorphone HCl (Dilaudid) 0.5 mg IVPUSH Q4H PRN PRN Reason: Severe pain Last Admin: 11/10/18 07:42 Dose: 0.5 mg Ceftriaxone Sodium 2 gm/ (Sodium Chloride) 100 mls @ 200 mls/hr IV Q24H [facility] Last Admin: 11/09/18 15:44 Dose: 200 mls/hr Potassium Chloride/Sodium Chloride (Normal Saline With 20 Meq Kcl) 1,000 mls @ 125 mls/hr IV ASDIRECTED [facility] Last Admin: 11/10/18 04:55 Dose: 125 mls/hr Lactated Ringer's (Ringers, Lactated) 500 mls @ 999 mls/hr IV .BOLUS ONE Stop: 11/10/18 10:22 Ketorolac Tromethamine (Toradol) 15 mg IVPUSH Q6H [facility] Last Admin: 11/10/18 06:27 Dose: 15 mg Lidocaine (Lidoderm 5%) 700 mg TOP Q24H [facility] Last Admin: 11/09/18 08:45 Dose: 700 mg Lorazepam (Ativan) 0 mg IVPUSH Q6H PRN; Protocol PRN Reason: Anxiety Miscellaneous Information (Remove Patch) 0 ea TRDERM Q24H [facility] Last Admin: 11/09/18 22:00 Dose: 1 ea Multivitamins (Thera) 1 each PO DAILY [facility] Last Admin: 11/09/18 08:20 Dose: 1 each Ondansetron HCl (Zofran) 4 mg IVPUSH Q8H PRN PRN Reason: Nausea/Vomiting Rosuvastatin Calcium (Crestor) 10 mg PO BEDTIME [facility] Last Admin: 11/09/18 20:58 Dose: 10 mg Simethicone (Simethicone) 80 mg PO Q6H PRN PRN Reason: Gas Sodium Chloride (Saline Flush) 10 ml FLUSH ASDIRECTED PRN PRN Reason: Keep Vein Open Last Admin: 11/08/18 16:02 Dose: 10 ml Tamsulosin HCl (Flomax) 0.4 mg PO PCBREAKFAST [facility] Last Admin: 11/09/18 09:11 Dose: Not Given Temazepam (Restoril) 15 mg PO BEDTIME [facility] Last Admin: 11/09/18 20:58 Dose: 15 mg Thiamine HCl (Vitamin B-1) 100 mg PO DAILY [facility] Last Admin: 11/09/18 08:20 Dose: 100 mg Discontinued Medications Acetaminophen (Tylenol) 975 mg PO NOW ONE Stop: 11/06/18 14:59 Last Admin: 11/06/18 15:25 Dose: 975 mg Hydrocodone Bitart/Acetaminophen ([place] 325-5 Mg) 1 tab PO Q6H PRN PRN Reason: Pain (moderate 4-6) Last Admin: 11/07/18 04:20 Dose: 1 tab Hydrocodone Bitart/Acetaminophen ([place] 325-5 Mg) 1 tab PO Q4H PRN PRN Reason: Pain (moderate 4-6) Last Admin: 11/09/18 15:44 Dose: 1 tab Bisacodyl (Dulcolax) 10 mg RECTAL ONETIME ONE Stop: 11/08/18 12:42 Last Admin: 11/08/18 12:50 Dose: 10 mg Bisacodyl (Dulcolax) 10 mg RECTAL ONETIME ONE Stop: 11/08/18 17:55 Last Admin: 11/08/18 17:54 Dose: 10 mg Bisacodyl (Dulcolax) 10 mg RECTAL ONETIME ONE Stop: 11/09/18 07:16 Last Admin: 11/09/18 07:39 Dose: 10 mg Ceftriaxone Sodium (Rocephin) 2 gm IVPUSH Q24H [facility] Diatrizoate Meglum/Diatrizoate Sod (Gastrografin 37%) 90 ml PO ONETIME ONE Stop: 11/08/18 15:57 Last Admin: 11/08/18 16:02 Dose: 90 ml Enoxaparin Sodium (Lovenox) 40 mg SUBCUT Q24H [facility] Last Admin: 11/07/18 18:17 Dose: 40 mg Gabapentin (Neurontin) 200 mg PO BEDTIME [facility] Last Admin: 11/07/18 20:45 Dose: 200 mg Hydromorphone HCl (Dilaudid) 0.5 mg IVPUSH ONETIME ONE Stop: 11/06/18 14:59 Last Admin: 11/06/18 15:24 Dose: 0.5 mg Hydromorphone HCl (Dilaudid) 0.5 mg IVPUSH Q8H PRN PRN Reason: Pain Hydromorphone HCl (Dilaudid) 0.5 mg IVPUSH Q8H PRN PRN Reason: Pain Last Admin: 11/07/18 04:45 Dose: 0.5 mg Hydromorphone HCl (Dilaudid) 0.5 mg IVPUSH Q6H PRN PRN Reason: Severe pain Last Admin: 11/08/18 02:16 Dose: 0.5 mg Sodium Chloride (Normal Saline) 1,000 mls @ 999 mls/hr IV ONETIME [facility] Last Admin: 11/06/18 13:30 Dose: 999 mls/hr Ceftriaxone Sodium 1 gm/ (Sodium Chloride) 100 mls @ 200 mls/hr IV ONETIME ONE Stop: 11/06/18 15:08 Last Admin: 11/06/18 15:11 Dose: 200 mls/hr Sodium Chloride (Sodium Chloride 0.45%) 1,000 mls @ 125 mls/hr IV ASDIRECTED [facility] Last Admin: 11/07/18 09:52 Dose: 125 mls/hr Sodium Chloride (Normal Saline) 1,000 mls @ 999 mls/hr IV ONETIME ONE Stop: 11/07/18 10:52 Last Admin: 11/07/18 10:25 Dose: 999 mls/hr Sodium Chloride (Sodium Chloride 0.45%) 1,000 mls @ 150 mls/hr IV ASDIRECTED [facility] Last Admin: 11/07/18 18:16 Dose: 150 mls/hr Sodium Chloride (Sodium Chloride 0.45%) 1,000 mls @ 75 mls/hr IV ASDIRECTED [facility] Last Admin: 11/08/18 04:32 Dose: 75 mls/hr Sodium Chloride (Normal Saline) 1,000 mls @ 75 mls/hr IV ASDIRECTED [facility] Lidocaine HCl (Xylocaine-Mpf 1%) Confirm Administered Dose 4 mls @ as directed .ROUTE .STK-MED ONE Stop: 11/10/18 09:58 Lactated Ringer's (Ringers, Lactated) Confirm Administered Dose 1,000 mls @ as directed .ROUTE .STK-MED ONE Stop: 11/10/18 09:59 Influenza Virus Vaccine (Pharmacy To Dose - Influenza Vaccine) 1 each IM ONETIME ONE Stop: 11/06/18 16:35 Influenza Virus Vaccine (Fluzone High-Dose Syringe) 180 mcg IM .ONCE ONE Stop: 11/06/18 16:46 Iopamidol (Isovue-300 (61%)) 100 ml IVPUSH ONETIME ONE Stop: 11/08/18 15:57 Last Admin: 11/08/18 16:48 Dose: Not Given Ketorolac Tromethamine (Toradol) 30 mg IVPUSH Q6H [facility] Last Admin: 11/08/18 08:05 Dose: Not Given Lidocaine HCl (Xylocaine 2% Jelly) Confirm Administered Dose 10 ml .ROUTE .STK- MED ONE Stop: 11/06/18 15:12 Last Admin: 11/06/18 18:00 Dose: Not Given Magnesium Citrate (Citrate Of Magnesia) 296 ml NGTUBE ONETIME ONE Stop: 11/09/18 11:01 Last Admin: 11/09/18 11:30 Dose: 296 ml Propofol (Diprivan 20 Ml) Confirm Administered Dose 200 mg .ROUTE .STK-MED ONE Stop: 11/10/18 09:58 Simethicone (Simethicone) 160 mg PO ONETIME ONE Stop: 11/08/18 13:52 Last Admin: 11/08/18 14:05 Dose: 160 mg Temazepam (Restoril) 30 mg PO BEDTIME [facility]
[2018-11-10] MEDS: Folic Acid 1 MG Tab PO SCH (11:23)
[2018-11-10] MEDS: Gabapentin 100 MG Cap PO SCH ×3 (11:23→20:31)
[2018-11-10] MEDS: Tamsulosin 0.4 MG Cap.ER PO SCH (11:24)
[2018-11-10] MEDS: Multivitamins,Therapeutic Tab PO SCH (11:24)
[2018-11-10] MEDS: Thiamine 100 MG Tab PO SCH (11:24)
--- NOTE | 2018-11-10 11:46 | PCM48HPAN ---
Post Anesthesia Note - EVALUATION WITHIN 48HRS OF ANESTHETIC Vital Signs in Normal Range: Yes Patient Participated in Evaluation: Yes Respiratory Function Stable: Yes Airway Patent: Yes Cardiovascular Function Stable: Yes Hydration Status Stable: Yes Pain Control Satisfactory: Yes Nausea and Vomiting Control Satisfactory: Yes Mental Status Recovered: Yes Pulse Rate: 84 SaO2: 93 Resp Rate: 21 Blood Pressure: 140/60
[2018-11-10] MEDS: Lidocaine 5% 700 MG Patch TOP SCH (12:17)
--- NOTE | 2018-11-10 13:07 | PCM.PN ---
- General Info Date of Service: 11/10/18 Admission Dx/Problem (Free Text): Admission Diagnosis/Problem Admission Diagnosis/Problem Pyelonephritis Subjective Update: In to see Mega. He is sitting up in the chair. He reports his pain is 16 out of 10 but looks more comfortable. He underwent a theraputic colonoscopy earlier in the day. His urine output has decreased to 40ml/hr this afternoon. Will increase IV fluid rate to 200ml/hr for next 8 hours then decrease to 125ml/hr again. Dr. Bird requests KUB tomorrow AM. Discussion was had about transfer and family requested she remain here if at all possible. He did state he has a feeling like he may need to have a BM and nursing was going to bring him a commode. Functional Status: Reports: Pain Controlled (waxes and wanes - rates at 16/10 currently but looks more comfortable ), Tolerating Diet, Ambulating, Urinating, Incentive Spirometry. Denies: New Symptoms - Review of Systems General: Reports: Weakness, Fatigue. Denies: Fever, Malaise, Chills HEENT: Reports: No Symptoms. Denies: Headaches, Sore Throat Pulmonary: Reports: No Symptoms. Denies: Shortness of Breath, Pleuritic Chest Pain, Cough, Sputum, Wheezing Cardiovascular: Reports: No Symptoms. Denies: Chest Pain, Palpitations, Dyspnea on Exertion, Edema, Lightheadedness Gastrointestinal: Reports: Abdominal Pain, Constipation, Decreased Appetite, Other (NG tube in place ). Denies: Diarrhea, Flatus, Nausea, Vomiting Genitourinary: Reports: No Symptoms. Denies: Pain Musculoskeletal: Reports: No Symptoms Skin: Reports: No Symptoms Neurological: Reports: No Symptoms, Difficulty Walking (2/2 pain ), Gait Disturbance. Denies: Numbness, Tingling, Trouble Speaking Psychiatric: Reports: No Symptoms - Patient Data Vitals - Most Recent: Last Vital Signs Temp 97.5 F 11/10/18 10:06 Pulse 84 11/10/18 11:46 Resp 21 H 11/10/18 11:46 BP 140/60 11/10/18 11:46 Pulse Ox 93 L 11/10/18 11:46 Weight - Most Recent: 272 lb 3.2 oz I&O - Last 24 Hours: Intake & Output 11/09/18 11/10/18 11/10/18 22:59 06:59 14:59 Intake Total 5779 1407 Output Total 8224 8506 60 Balance -416 -553 -60 Lab Results Last 24 Hours: Laboratory Results - last 24 hr 11/10/18 11/10/18 11/10/18 Range/Units 05:41 05:41 05:41 WBC 9.03 (4.23-9.07) K/mm3 RBC 3.71 L (4.63-6.08) M/mm3 Hgb 10.8 L (13.7-17.5) gm/L Hct 31.8 L (40.1-51.0) % MCV 85.7 (79.0-92.2) fl MCH 29.1 (25.7-32.2) pg MCHC 34.0 (32.2-35.5) g/dl RDW Std Deviation 41.6 (35.1-43.9) fL Plt Count 205 (163-337) K/mm3 MPV 10.0 (9.4-12.3) fl Neut % (Auto) 88.8 H (34.0-67.9) % Lymph % (Auto) 6.1 L (21.8-53.1) % [place] % (Auto) 4.2 L (5.3-12.2) % Eos % (Auto) 0.4 L (0.8-7.0) Baso % (Auto) 0.1 (0.1-1.2) % Neut # (Auto) 8.01 H (1.78-5.38) K/mm3 Lymph # (Auto) 0.55 L (1.32-3.57) K/mm3 [place] # (Auto) 0.38 (0.30-0.82) K/mm3 Eos # (Auto) 0.04 (0.04-0.54) K/mm3 Baso # (Auto) 0.01 (0.01-0.08) K/mm3 Manual Slide Review Abnormal smear Sodium 144 (136-145) mEq/L Potassium 3.8 (3.5-5.1) mEq/L Chloride 108 H (98-107) mEq/L Carbon Dioxide 24 (21-32) mEq/L Anion Gap 15.8 H (5-15) BUN 32 H (7-18) mg/dL Creatinine 0.9 (0.7-1.3) mg/dL Est Cr Clr Drug Dosing 76.14 mL/min Estimated GFR (MDRD) > 60 (>60) mL/min BUN/Creatinine Ratio 35.6 H (14-18) Glucose 116 H (83-115) mg/dL Lactic Acid 1.1 (0.4-2.0) mmol/L Calcium 9.1 (8.5-10.1) mg/dL Magnesium 2.3 (1.8-2.4) mg/dl C-Reactive Protein 20.9 H* (<1.0) mg/dL Oscar Results Last 24 Hours: Microbiology 11/06/18 13:15 Aerobic Blood Culture - Final Blood Escherichia Coli Anaerobic Blood Culture - Preliminary Escherichia Coli Gram Positive Cocci 11/06/18 13:05 Aerobic Blood Culture - Final Blood Escherichia Coli Anaerobic Blood Culture - Preliminary Escherichia Coli Gram Positive Cocci 11/07/18 13:00 Aerobic Blood Culture - Preliminary Blood - Venous Escherichia Coli Anaerobic Blood Culture - Preliminary NO GROWTH AFTER 2 DAYS 11/08/18 15:09 Aerobic Blood Culture - Preliminary Blood - Venous NO GROWTH AFTER 1 DAY Anaerobic Blood Culture - Preliminary NO GROWTH AFTER 1 DAY 11/08/18 15:00 Aerobic Blood Culture - Preliminary Blood NO GROWTH AFTER 1 DAY Anaerobic Blood Culture - Preliminary NO GROWTH AFTER 1 DAY 11/07/18 13:18 Aerobic Blood Culture - Final Blood - Venous - Lab Draw Escherichia Coli Anaerobic Blood Culture - Preliminary NO GROWTH AFTER 2 DAYS Med Orders - Current: Current Medications Acetaminophen (Tylenol) 650 mg PO Q6H PRN PRN Reason: Pain/Fever Last Admin: 11/07/18 15:54 Dose: 650 mg Benzocaine (Hurricaine 20% [place]) 0 ml MUCMEM Q4HR PRN PRN Reason: Other Last Admin: 11/08/18 20:58 Dose: 1 spray Docusate Sodium (Colace) 100 mg PO BID PRN PRN Reason: Constipation Last Admin: 11/09/18 20:59 Dose: 100 mg Folic Acid (Folic Acid) 1 mg PO DAILY [facility] Last Admin: 11/10/18 11:23 Dose: Not Given Gabapentin (Neurontin) 200 mg PO TID [facility] Last Admin: 11/10/18 11:23 Dose: Not Given Hydralazine HCl (Apresoline) 20 mg IVPUSH Q6H PRN PRN Reason: Hypertension Hydromorphone HCl (Dilaudid) 0.5 mg IVPUSH Q4H PRN PRN Reason: Severe pain Last Admin: 11/10/18 07:42 Dose: 0.5 mg Ceftriaxone Sodium 2 gm/ (Sodium Chloride) 100 mls @ 200 mls/hr IV Q24H [facility] Last Admin: 11/09/18 15:44 Dose: 200 mls/hr Potassium Chloride/Sodium Chloride (Normal Saline With 20 Meq Kcl) 1,000 mls @ 125 mls/hr IV ASDIRECTED [facility] Last Admin: 11/10/18 04:55 Dose: 125 mls/hr Ketorolac Tromethamine (Toradol) 15 mg IVPUSH Q6H [facility] Last Admin: 11/10/18 12:24 Dose: 15 mg Lidocaine (Lidoderm 5%) 700 mg TOP Q24H [facility] Last Admin: 11/10/18 12:17 Dose: 700 mg Lorazepam (Ativan) 0 mg IVPUSH Q6H PRN; Protocol PRN Reason: Anxiety Miscellaneous Information (Remove Patch) 0 ea TRDERM Q24H [facility] Last Admin: 11/09/18 22:00 Dose: 1 ea Multivitamins (Thera) 1 each PO DAILY [facility] Last Admin: 11/10/18 11:24 Dose: Not Given Ondansetron HCl (Zofran) 4 mg IVPUSH Q8H PRN PRN Reason: Nausea/Vomiting Rosuvastatin Calcium (Crestor) 10 mg PO BEDTIME [facility] Last Admin: 11/09/18 20:58 Dose: 10 mg Simethicone (Simethicone) 80 mg PO Q6H PRN PRN Reason: Gas Sodium Chloride (Saline Flush) 10 ml FLUSH ASDIRECTED PRN PRN Reason: Keep Vein Open Last Admin: 11/08/18 16:02 Dose: 10 ml Tamsulosin HCl (Flomax) 0.4 mg PO PCBREAKFAST [facility] Last Admin: 11/10/18 11:24 Dose: Not Given Temazepam (Restoril) 15 mg PO BEDTIME [facility] Last Admin: 11/09/18 20:58 Dose: 15 mg Thiamine HCl (Vitamin B-1) 100 mg PO DAILY [facility] Last Admin: 11/10/18 11:24 Dose: Not Given Discontinued Medications Acetaminophen (Tylenol) 975 mg PO NOW ONE Stop: 11/06/18 14:59 Last Admin: 11/06/18 15:25 Dose: 975 mg Hydrocodone Bitart/Acetaminophen ([place] 325-5 Mg) 1 tab PO Q6H PRN PRN Reason: Pain (moderate 4-6) Last Admin: 11/07/18 04:20 Dose: 1 tab Hydrocodone Bitart/Acetaminophen ([place] 325-5 Mg) 1 tab PO Q4H PRN PRN Reason: Pain (moderate 4-6) Last Admin: 11/09/18 15:44 Dose: 1 tab Bisacodyl (Dulcolax) 10 mg RECTAL ONETIME ONE Stop: 11/08/18 12:42 Last Admin: 11/08/18 12:50 Dose: 10 mg Bisacodyl (Dulcolax) 10 mg RECTAL ONETIME ONE Stop: 11/08/18 17:55 Last Admin: 11/08/18 17:54 Dose: 10 mg Bisacodyl (Dulcolax) 10 mg RECTAL ONETIME ONE Stop: 11/09/18 07:16 Last Admin: 11/09/18 07:39 Dose: 10 mg Ceftriaxone Sodium (Rocephin) 2 gm IVPUSH Q24H [facility] Diatrizoate Meglum/Diatrizoate Sod (Gastrografin 37%) 90 ml PO ONETIME ONE Stop: 11/08/18 15:57 Last Admin: 11/08/18 16:02 Dose: 90 ml Enoxaparin Sodium (Lovenox) 40 mg SUBCUT Q24H [facility] Last Admin: 11/07/18 18:17 Dose: 40 mg Gabapentin (Neurontin) 200 mg PO BEDTIME [facility] Last Admin: 11/07/18 20:45 Dose: 200 mg Hydromorphone HCl (Dilaudid) 0.5 mg IVPUSH ONETIME ONE Stop: 11/06/18 14:59 Last Admin: 11/06/18 15:24 Dose: 0.5 mg Hydromorphone HCl (Dilaudid) 0.5 mg IVPUSH Q8H PRN PRN Reason: Pain Hydromorphone HCl (Dilaudid) 0.5 mg IVPUSH Q8H PRN PRN Reason: Pain Last Admin: 11/07/18 04:45 Dose: 0.5 mg Hydromorphone HCl (Dilaudid) 0.5 mg IVPUSH Q6H PRN PRN Reason: Severe pain Last Admin: 11/08/18 02:16 Dose: 0.5 mg Sodium Chloride (Normal Saline) 1,000 mls @ 999 mls/hr IV ONETIME [facility] Last Admin: 11/06/18 13:30 Dose: 999 mls/hr Ceftriaxone Sodium 1 gm/ (Sodium Chloride) 100 mls @ 200 mls/hr IV ONETIME ONE Stop: 11/06/18 15:08 Last Admin: 11/06/18 15:11 Dose: 200 mls/hr Sodium Chloride (Sodium Chloride 0.45%) 1,000 mls @ 125 mls/hr IV ASDIRECTED [facility] Last Admin: 11/07/18 09:52 Dose: 125 mls/hr Sodium Chloride (Normal Saline) 1,000 mls @ 999 mls/hr IV ONETIME ONE Stop: 11/07/18 10:52 Last Admin: 11/07/18 10:25 Dose: 999 mls/hr Sodium Chloride (Sodium Chloride 0.45%) 1,000 mls @ 150 mls/hr IV ASDIRECTED [facility] Last Admin: 11/07/18 18:16 Dose: 150 mls/hr Sodium Chloride (Sodium Chloride 0.45%) 1,000 mls @ 75 mls/hr IV ASDIRECTED [facility] Last Admin: 11/08/18 04:32 Dose: 75 mls/hr Sodium Chloride (Normal Saline) 1,000 mls @ 75 mls/hr IV ASDIRECTED [facility] Lactated Ringer's (Ringers, Lactated) 500 mls @ 999 mls/hr IV .BOLUS ONE Stop: 11/10/18 10:22 Last Admin: 11/10/18 10:05 Dose: 999 mls/hr Lidocaine HCl (Xylocaine-Mpf 1%) Confirm Administered Dose 4 mls @ as directed .ROUTE .STK-MED ONE Stop: 11/10/18 09:58 Lactated Ringer's (Ringers, Lactated) Confirm Administered Dose 1,000 mls @ as directed .ROUTE .STK-MED ONE Stop: 11/10/18 09:59 Influenza Virus Vaccine (Pharmacy To Dose - Influenza Vaccine) 1 each IM ONETIME ONE Stop: 11/06/18 16:35 Influenza Virus Vaccine (Fluzone High-Dose Syringe) 180 mcg IM .ONCE ONE Stop: 11/06/18 16:46 Iopamidol (Isovue-300 (61%)) 100 ml IVPUSH ONETIME ONE Stop: 11/08/18 15:57 Last Admin: 11/08/18 16:48 Dose: Not Given Ketorolac Tromethamine (Toradol) 30 mg IVPUSH Q6H [facility] Last Admin: 11/08/18 08:05 Dose: Not Given Lidocaine HCl (Xylocaine 2% Jelly) Confirm Administered Dose 10 ml .ROUTE .STK- MED ONE Stop: 11/06/18 15:12 Last Admin: 11/06/18 18:00 Dose: Not Given Magnesium Citrate (Citrate Of Magnesia) 296 ml NGTUBE ONETIME ONE Stop: 11/09/18 11:01 Last Admin: 11/09/18 11:30 Dose: 296 ml Propofol (Diprivan 20 Ml) Confirm Administered Dose 200 mg .ROUTE .STK-MED ONE Stop: 11/10/18 09:58 Propofol (Diprivan 20 Ml) Confirm Administered Dose 200 mg .ROUTE .STK-MED ONE Stop: 11/10/18 11:06 Simethicone (Simethicone) 160 mg PO ONETIME ONE Stop: 11/08/18 13:52 Last Admin: 11/08/18 14:05 Dose: 160 mg Temazepam (Restoril) 30 mg PO BEDTIME [facility] - Exam Quality Assessment: Urine Catheter, DVT Prophylaxis. No: Supplemental Oxygen General: Alert, Oriented, Cooperative, Mild Distress (waxes and wanes ) HEENT: Pupils Equal, Pupils Reactive, EOMI, Mucous Membr. Moist/[place] Neck: Supple, Trachea Midline, No JVD Lungs: Clear to Auscultation, Normal Respiratory Effort Cardiovascular: Regular Rate, Regular Rhythm GI/Abdominal Exam: Normal Bowel Sounds, Soft, Non-Tender, No Distention, No Abnormal Bruit (Male) Exam: Deferred Back Exam: Normal Inspection, Full Range of Motion Extremities: Normal Inspection, Normal Range of Motion, Non-Tender, No Pedal Edema, Normal Capillary Refill Peripheral Pulses: 3+: Radial (L), Radial (R), Dorsalis Pedis (L), Dorsalis Pedis (R) Skin: Warm, Dry, Intact Neurological: No New Focal Deficit Psy/Mental Status: Alert - Problem List & Annotations (1) Bacteremia SNOMED Code(s): 4366296 Code(s): R78.81 - BACTEREMIA Status: Acute Priority: High Current Visit : Yes (2) Dehydration SNOMED Code(s): 41413631 Code(s): E86.0 - DEHYDRATION Status: Acute Priority: High Current Visit : Yes (3) Hyperlipidemia SNOMED Code(s): 73715159 Code(s): E78.5 - HYPERLIPIDEMIA, UNSPECIFIED Status: Chronic Priority: Low Current Visit: No Qualifiers: Hyperlipidemia type: unspecified Qualified Code(s): E78.5 - Hyperlipidemia , unspecified (4) Pyelonephritis SNOMED Code(s): 66000765 Code(s): N12 - TUBULO-INTERSTITIAL NEPHRITIS, NOT SPCF ACUTE OR CHRONIC Status: Acute Priority: High Current Visit: Yes (5) Vomiting SNOMED Code(s): 997412269 Code(s): R11.10 - VOMITING, UNSPECIFIED Status: Resolved Priority: Medium Current Visit: Yes Qualifiers: Vomiting type: unspecified Vomiting Intractability: non-intractable Nausea presence: with nausea Qualified Code(s): R11.2 - Nausea with vomiting, unspecified (6) Ileus SNOMED Code(s): 681196513 Code(s): K56.7 - ILEUS, UNSPECIFIED Status: Acute Priority: High Current Visit: Yes - Problem List Review Problem List Initiated/Reviewed/Updated: Yes - My Orders Last 24 Hours: My Active Orders 11/11/18 07:00 KUB [Abdomen 1V Flat] [CR] Routine - Assessment Assessment:: The patient stated that he has passed a bit of gas since i last saw him exam--still distended but improved from before ileus--still worrisome continue with serial exam i discussed with his daughter he still may need a scope ("bloating has been a problem for some time ") - Plan Plan:: Impression: Flank pain with history of straight catheterizations Increase frequency/urgency Pyelonephritis - E. Coli sensitive to rocephin History of chronic back pain Bacteremia - E. Coli in 4/4 bottles; Negative repeat thus far - Gram positive rods in 2/4 bottles (suspect contamination but will monitor); Negative repeat thus far Ileus S/P therapeutic colonoscopy Chronic HLD Plan: IVF Rocephin 2 gm daily Fluids as ordered Mcwilliams catheter in place 2/2 chronic urinary retention - Dr. Madden office requests leave in UC, E. Coli - sensitive to Rocephin O2 as needed Pain meds Add IS Home meds Daily Labs GS consult, NG tube for ileus Consult PT/OT/CM DVT/GI prophylaxis Code status: Full code; PCP: Migdalia Sanchez PA-C LOS >96 Hrs due to new development of ileus.
--- NOTE | 2018-11-10 13:08 | OR ---
DATE OF OPERATION: 11/10/2018 SURGEON: Malissa Bird MD PREOPERATIVE DIAGNOSIS: Ileus with combination of Belvue's. POSTOPERATIVE DIAGNOSIS: 1. Ileus with combination of Bel[place]'s. 2. Some inspissated stool in the mid transverse colon. OPERATION PERFORMED: Decompressive colonoscopy with irrigation. ANESTHESIA: IV sedation. ESTIMATED BLOOD LOSS: None. BRIEF HISTORY: This is a very pleasant 82-year-old male, who arrived here septic because of urinary tract E. coli sepsis. He developed a severe ileus. In addition to that, he has had markedly distended colon. I have been monitoring him closely and he has had very little flatus noted. Today, he was more distended than before. I had the opportunity to discuss the risks and benefits for a decompressive colonoscopy as well as I wanted to also see with the mucosa looks like. I discussed this with the patient and his daughter and they agreed to proceed. DESCRIPTION OF PROCEDURE: The patient was taken to the operative suite. A time-out was performed. The NG was placed to suction again. He was placed on his left side down with his knees flexed. A digital exam obviously was no change from last night. I then began advancing the scope and clearly just as I got past the sigmoid, there was a lot of distention of the colon, which I was able to easily pass the scope into the transverse. At this point, I must say I was pleased that the mucosa itself was absolutely healthy. There were no ulcerations or signs of ischemia. I continuously removed as much air as I could. When I got into, probably the midtransverse is where there was inspissated stool. I was able to irrigate this quite liberally and it seemed to improve. Once I did this, I was able to with some manual compression of the abdominal area further decompress the bowel. It is hard to tell how much was decompressed of the colon. Clinically, I could see the colon collapsing on the camera, so I think that is a good sign. He was still distended, albeit he has a lot of small bowel distention too. I did not get all the way to the cecum because once I got to where that stool was, I just spent the time to really kind of loosen this up and hopefully that will do the trick. I then took about 100 mL of Fleet enema. I went ahead and instilled it into that segment of the transverse colon. During the procedure, he had spontaneous large amount of flatus. I continued to come out, and again, the mucosa from all that area looked good. He had a significant number of diverticula, but I did not see any signs of inflammation. At the completion, his abdomen seemed a bit more softer, but we will continue with the NG tube and serial exams. We will see if there is any more of spontaneous flatus. If not, if he does get it sometimes, we may have to repeat the procedure. He tolerated the procedure well. MMODAL /[id number]
[2018-11-10] MEDS: cefTRIAXone 2 GM in Sodium Chloride 0.9% 100 ML IV SCH (14:22)
[2018-11-10] MEDS: Acetaminophen 325 MG Tab PO PRN (18:51)
[2018-11-10] MEDS: Temazepam 15 MG Cap PO SCH (20:31)
[2018-11-11] MEDS: Ketorolac 15 MG/ML SDV IVPUSH SCH ×3 (00:04→12:21)
[2018-11-11] MEDS ORDERED: Furosemide 20 MG/2 ML VIAL IVPUSH ONE (01:40)
--- NOTE | 2018-11-11 02:24 | PCM.SN ---
- Free Text/Narrative Note: I was called because of the ng coming out and with placement, there was 600. THe patient is awake and alert. He told me that his abd feels better than it has no pain complaint PE--bowel sounds are present as before but decrease There is no tenderness like there was before the colonoscopy but the abd is still distended but less. IMP--slow progress--- cont with the ng monitor closely as he is not out of the brian yet. Dr. Bird
[2018-11-11] MEDS: NS + KCl 20mEq/L 1,000 ML IV SCH ×2 (02:40→10:53)
--- NOTE | 2018-11-11 06:23 | PCM.PN ---
- General Info Date of Service: 11/11/18 Admission Dx/Problem (Free Text): Admission Diagnosis/Problem Admission Diagnosis/Problem Pyelonephritis - Patient Data Vitals - Most Recent: Last Vital Signs Temp 97.5 F 11/11/18 03:34 Pulse 84 11/11/18 03:34 Resp 16 11/11/18 03:34 BP 146/71 H 11/11/18 03:34 Pulse Ox 99 11/11/18 03:34 Weight - Most Recent: 277 lb 6.4 oz I&O - Last 24 Hours: Intake & Output 11/10/18 11/10/18 11/11/18 14:59 22:59 06:59 Intake Total 50 1825 1773 Output Total 375 4406 1860 Balance -325 429 -87 Lab Results Last 24 Hours: Laboratory Results - last 24 hr 11/10/18 11/10/18 11/10/18 Range/Units 05:41 05:41 05:41 WBC (4.23-9.07) K/mm3 RBC (4.63-6.08) M/mm3 Hgb (13.7-17.5) gm/L Hct (40.1-51.0) % MCV (79.0-92.2) fl MCH (25.7-32.2) pg MCHC (32.2-35.5) g/dl RDW Std Deviation (35.1-43.9) fL Plt Count (163-337) K/mm3 MPV (9.4-12.3) fl Neut % (Auto) (34.0-67.9) % Lymph % (Auto) (21.8-53.1) % [place] % (Auto) (5.3-12.2) % Eos % (Auto) (0.8-7.0) Baso % (Auto) (0.1-1.2) % Neut # (Auto) (1.78-5.38) K/mm3 Lymph # (Auto) (1.32-3.57) K/mm3 Foster # (Auto) (0.30-0.82) K/mm3 Eos # (Auto) (0.04-0.54) K/mm3 Baso # (Auto) (0.01-0.08) K/mm3 Manual Slide Review Abnormal smear Sodium 144 (136-145) mEq/L Potassium 3.8 (3.5-5.1) mEq/L Chloride 108 H (98-107) mEq/L Carbon Dioxide 24 (21-32) mEq/L Anion Gap 15.8 H (5-15) BUN 32 H (7-18) mg/dL Creatinine 0.9 (0.7-1.3) mg/dL Est Cr Clr Drug Dosing 76.14 mL/min Estimated GFR (MDRD) > 60 (>60) mL/min BUN/Creatinine Ratio 35.6 H (14-18) Glucose 116 H (83-115) mg/dL Lactic Acid 1.1 (0.4-2.0) mmol/L Calcium 9.1 (8.5-10.1) mg/dL Magnesium 2.3 (1.8-2.4) mg/dl C-Reactive Protein 20.9 H* (<1.0) mg/dL Ur Specific [place] (1.005-1.030) 11/10/18 11/11/18 Range/Units 18:21 05:50 WBC 8.86 (4.23-9.07) K/mm3 RBC 3.71 L (4.63-6.08) M/mm3 Hgb 10.7 L (13.7-17.5) gm/L Hct 32.6 L (40.1-51.0) % MCV 87.9 (79.0-92.2) fl MCH 28.8 (25.7-32.2) pg MCHC 32.8 (32.2-35.5) g/dl RDW Std Deviation 43.1 (35.1-43.9) fL Plt Count 272 (163-337) K/mm3 MPV 9.7 (9.4-12.3) fl Neut % (Auto) 86.5 H (34.0-67.9) % Lymph % (Auto) 7.0 L (21.8-53.1) % Foster % (Auto) 5.1 L (5.3-12.2) % Eos % (Auto) 0.8 (0.8-7.0) Baso % (Auto) 0.1 (0.1-1.2) % Neut # (Auto) 7.67 H (1.78-5.38) K/mm3 Lymph # (Auto) 0.62 L (1.32-3.57) K/mm3 Foster # (Auto) 0.45 (0.30-0.82) K/mm3 Eos # (Auto) 0.07 (0.04-0.54) K/mm3 Baso # (Auto) 0.01 (0.01-0.08) K/mm3 Manual Slide Review Sodium (136-145) mEq/L Potassium (3.5-5.1) mEq/L Chloride (98-107) mEq/L Carbon Dioxide (21-32) mEq/L Anion Gap (5-15) BUN (7-18) mg/dL Creatinine (0.7-1.3) mg/dL Est Cr Clr Drug Dosing mL/min Estimated GFR (MDRD) (>60) mL/min BUN/Creatinine Ratio (14-18) Glucose (83-115) mg/dL Lactic Acid (0.4-2.0) mmol/L Calcium (8.5-10.1) mg/dL Magnesium (1.8-2.4) mg/dl C-Reactive Protein (<1.0) mg/dL Ur Specific [place] 1.020 (1.005-1.030) Oscar Results Last 24 Hours: Microbiology 11/08/18 15:09 Aerobic Blood Culture - Preliminary Blood - Venous NO GROWTH AFTER 2 DAYS Anaerobic Blood Culture - Preliminary NO GROWTH AFTER 2 DAYS 11/08/18 15:00 Aerobic Blood Culture - Preliminary Blood NO GROWTH AFTER 2 DAYS Anaerobic Blood Culture - Preliminary NO GROWTH AFTER 2 DAYS 11/06/18 13:05 Aerobic Blood Culture - Final Blood Escherichia Coli Anaerobic Blood Culture - Preliminary Escherichia Coli Streptococcus Bovis Group 11/06/18 13:15 Aerobic Blood Culture - Final Blood Escherichia Coli Anaerobic Blood Culture - Preliminary Escherichia Coli Streptococcus Bovis Group 11/07/18 13:00 Aerobic Blood Culture - Preliminary Blood - Venous Escherichia Coli Anaerobic Blood Culture - Preliminary NO GROWTH AFTER 3 DAYS 11/07/18 13:18 Aerobic Blood Culture - Final Blood - Venous - Lab Draw Escherichia Coli Anaerobic Blood Culture - Preliminary NO GROWTH AFTER 3 DAYS Med Orders - Current: Current Medications Acetaminophen (Tylenol) 650 mg PO Q6H PRN PRN Reason: Pain/Fever Last Admin: 11/10/18 18:51 Dose: 650 mg Benzocaine (Hurricaine 20% [place]) 0 ml MUCMEM Q4HR PRN PRN Reason: Other Last Admin: 11/08/18 20:58 Dose: 1 spray Docusate Sodium (Colace) 100 mg PO BID PRN PRN Reason: Constipation Last Admin: 11/09/18 20:59 Dose: 100 mg Gabapentin (Neurontin) 200 mg PO TID [facility] Last Admin: 11/10/18 20:31 Dose: 200 mg Hydralazine HCl (Apresoline) 20 mg IVPUSH Q6H PRN PRN Reason: Hypertension Hydromorphone HCl (Dilaudid) 0.5 mg IVPUSH Q4H PRN PRN Reason: Severe pain Last Admin: 11/11/18 00:00 Dose: 0.5 mg Ceftriaxone Sodium 2 gm/ (Sodium Chloride) 100 mls @ 200 mls/hr IV Q24H [facility] Last Admin: 11/10/18 14:22 Dose: 200 mls/hr Potassium Chloride/Sodium Chloride (Normal Saline With 20 Meq Kcl) 1,000 mls @ 200 mls/hr IV ASDIRECTED [facility] Last Admin: 11/11/18 02:40 Dose: 125 mls/hr Ketorolac Tromethamine (Toradol) 15 mg IVPUSH Q6H [facility] Last Admin: 11/11/18 06:20 Dose: 15 mg Lidocaine (Lidoderm 5%) 700 mg TOP Q24H [facility] Last Admin: 11/10/18 12:17 Dose: 700 mg Miscellaneous Information (Remove Patch) 0 ea TRDERM Q24H [facility] Last Admin: 11/10/18 23:55 Dose: 1 ea Multivitamins (Thera) 1 each PO DAILY [facility] Last Admin: 11/10/18 11:24 Dose: Not Given Ondansetron HCl (Zofran) 4 mg IVPUSH Q8H PRN PRN Reason: Nausea/Vomiting Simethicone (Simethicone) 80 mg PO Q6H PRN PRN Reason: Gas Sodium Chloride (Saline Flush) 10 ml FLUSH ASDIRECTED PRN PRN Reason: Keep Vein Open Last Admin: 11/08/18 16:02 Dose: 10 ml Tamsulosin HCl (Flomax) 0.4 mg PO PCBREAKFAST [facility] Last Admin: 11/10/18 11:24 Dose: Not Given Temazepam (Restoril) 15 mg PO BEDTIME [facility] Last Admin: 11/10/18 20:31 Dose: 15 mg Discontinued Medications Acetaminophen (Tylenol) 975 mg PO NOW ONE Stop: 11/06/18 14:59 Last Admin: 11/06/18 15:25 Dose: 975 mg Hydrocodone Bitart/Acetaminophen ([place] 325-5 Mg) 1 tab PO Q6H PRN PRN Reason: Pain (moderate 4-6) Last Admin: 11/07/18 04:20 Dose: 1 tab Hydrocodone Bitart/Acetaminophen ([place] 325-5 Mg) 1 tab PO Q4H PRN PRN Reason: Pain (moderate 4-6) Last Admin: 11/09/18 15:44 Dose: 1 tab Bisacodyl (Dulcolax) 10 mg RECTAL ONETIME ONE Stop: 11/08/18 12:42 Last Admin: 11/08/18 12:50 Dose: 10 mg Bisacodyl (Dulcolax) 10 mg RECTAL ONETIME ONE Stop: 11/08/18 17:55 Last Admin: 11/08/18 17:54 Dose: 10 mg Bisacodyl (Dulcolax) 10 mg RECTAL ONETIME ONE Stop: 11/09/18 07:16 Last Admin: 11/09/18 07:39 Dose: 10 mg Ceftriaxone Sodium (Rocephin) 2 gm IVPUSH Q24H [facility] Diatrizoate Meglum/Diatrizoate Sod (Gastrografin 37%) 90 ml PO ONETIME ONE Stop: 11/08/18 15:57 Last Admin: 11/08/18 16:02 Dose: 90 ml Enoxaparin Sodium (Lovenox) 40 mg SUBCUT Q24H [facility] Last Admin: 11/07/18 18:17 Dose: 40 mg Folic Acid (Folic Acid) 1 mg PO DAILY [facility] Last Admin: 11/10/18 11:23 Dose: Not Given Furosemide (Lasix) 20 mg IVPUSH NOW ONE Stop: 11/11/18 01:41 Last Admin: 11/11/18 02:09 Dose: 20 mg Gabapentin (Neurontin) 200 mg PO BEDTIME [facility] Last Admin: 11/07/18 20:45 Dose: 200 mg Hydromorphone HCl (Dilaudid) 0.5 mg IVPUSH ONETIME ONE Stop: 11/06/18 14:59 Last Admin: 11/06/18 15:24 Dose: 0.5 mg Hydromorphone HCl (Dilaudid) 0.5 mg IVPUSH Q8H PRN PRN Reason: Pain Hydromorphone HCl (Dilaudid) 0.5 mg IVPUSH Q8H PRN PRN Reason: Pain Last Admin: 11/07/18 04:45 Dose: 0.5 mg Hydromorphone HCl (Dilaudid) 0.5 mg IVPUSH Q6H PRN PRN Reason: Severe pain Last Admin: 11/08/18 02:16 Dose: 0.5 mg Sodium Chloride (Normal Saline) 1,000 mls @ 999 mls/hr IV ONETIME NAZ Last Admin: 11/06/18 13:30 Dose: 999 mls/hr Ceftriaxone Sodium 1 gm/ (Sodium Chloride) 100 mls @ 200 mls/hr IV ONETIME ONE Stop: 11/06/18 15:08 Last Admin: 11/06/18 15:11 Dose: 200 mls/hr Sodium Chloride (Sodium Chloride 0.45%) 1,000 mls @ 125 mls/hr IV ASDIRECTED NAZ Last Admin: 11/07/18 09:52 Dose: 125 mls/hr Sodium Chloride (Normal Saline) 1,000 mls @ 999 mls/hr IV ONETIME ONE Stop: 11/07/18 10:52 Last Admin: 11/07/18 10:25 Dose: 999 mls/hr Sodium Chloride (Sodium Chloride 0.45%) 1,000 mls @ 150 mls/hr IV ASDIRECTED [facility] Last Admin: 11/07/18 18:16 Dose: 150 mls/hr Sodium Chloride (Sodium Chloride 0.45%) 1,000 mls @ 75 mls/hr IV ASDIRECTED [facility] Last Admin: 11/08/18 04:32 Dose: 75 mls/hr Sodium Chloride (Normal Saline) 1,000 mls @ 75 mls/hr IV ASDIRECTED [facility] Lactated Ringer's (Ringers, Lactated) 500 mls @ 999 mls/hr IV .BOLUS ONE Stop: 11/10/18 10:22 Last Admin: 11/10/18 10:05 Dose: 999 mls/hr Lidocaine HCl (Xylocaine-Mpf 1%) Confirm Administered Dose 4 mls @ as directed .ROUTE .STK-MED ONE Stop: 11/10/18 09:58 Lactated Ringer's (Ringers, Lactated) Confirm Administered Dose 1,000 mls @ as directed .ROUTE .K-MED ONE Stop: 11/10/18 09:59 Influenza Virus Vaccine (Pharmacy To Dose - Influenza Vaccine) 1 each IM ONETIME ONE Stop: 11/06/18 16:35 Influenza Virus Vaccine (Fluzone High-Dose Syringe) 180 mcg IM .ONCE ONE Stop: 11/06/18 16:46 Iopamidol (Isovue-300 (61%)) 100 ml IVPUSH ONETIME ONE Stop: 11/08/18 15:57 Last Admin: 11/08/18 16:48 Dose: Not Given Ketorolac Tromethamine (Toradol) 30 mg IVPUSH Q6H [facility] Last Admin: 11/08/18 08:05 Dose: Not Given Lidocaine HCl (Xylocaine 2% Jelly) Confirm Administered Dose 10 ml .ROUTE .STK- MED ONE Stop: 11/06/18 15:12 Last Admin: 11/06/18 18:00 Dose: Not Given Lorazepam (Ativan) 0 mg IVPUSH Q6H PRN; Protocol PRN Reason: Anxiety Magnesium Citrate (Citrate Of Magnesia) 296 ml NGTUBE ONETIME ONE Stop: 11/09/18 11:01 Last Admin: 11/09/18 11:30 Dose: 296 ml Propofol (Diprivan 20 Ml) Confirm Administered Dose 200 mg .ROUTE .STK-MED ONE Stop: 11/10/18 09:58 Propofol (Diprivan 20 Ml) Confirm Administered Dose 200 mg .ROUTE .STK-MED ONE Stop: 11/10/18 11:06 Rosuvastatin Calcium (Crestor) 10 mg PO BEDTIME [facility] Last Admin: 11/09/18 20:58 Dose: 10 mg Simethicone (Simethicone) 160 mg PO ONETIME ONE Stop: 11/08/18 13:52 Last Admin: 11/08/18 14:05 Dose: 160 mg Temazepam (Restoril) 30 mg PO BEDTIME [facility] Thiamine HCl (Vitamin B-1) 100 mg PO DAILY [facility] Last Admin: 11/10/18 11:24 Dose: Not Given - Problem List & Annotations (1) Bacteremia SNOMED Code(s): 5196793 Code(s): R78.81 - BACTEREMIA Status: Acute Priority: High Current Visit : Yes (2) Dehydration SNOMED Code(s): 57525794 Code(s): E86.0 - DEHYDRATION Status: Acute Priority: High Current Visit : Yes (3) Hyperlipidemia SNOMED Code(s): 56044823 Code(s): E78.5 - HYPERLIPIDEMIA, UNSPECIFIED Status: Chronic Priority: Low Current Visit: No Qualifiers: Hyperlipidemia type: unspecified Qualified Code(s): E78.5 - Hyperlipidemia , unspecified (4) Pyelonephritis SNOMED Code(s): 69915588 Code(s): N12 - TUBULO-INTERSTITIAL NEPHRITIS, NOT SPCF ACUTE OR CHRONIC Status: Acute Priority: High Current Visit: Yes (5) Vomiting SNOMED Code(s): 323715715 Code(s): R11.10 - VOMITING, UNSPECIFIED Status: Resolved Priority: Medium Current Visit: Yes Qualifiers: Vomiting type: unspecified Vomiting Intractability: non-intractable Nausea presence: with nausea Qualified Code(s): R11.2 - Nausea with vomiting, unspecified (6) Ileus SNOMED Code(s): 514110285 Code(s): K56.7 - ILEUS, UNSPECIFIED Status: Acute Priority: High Current Visit: Yes - Problem List Review Problem List Initiated/Reviewed/Updated: Yes - My Orders Last 24 Hours: My Active Orders 11/10/18 13:26 Ambulate [RC] QID 11/11/18 07:00 KUB [Abdomen 1V Flat] [CR] Routine - Assessment Assessment:: The patient stated that he has passed a bit of gas since i last saw him exam--still distended but improved from before ileus--still worrisome continue with serial exam i discussed with his daughter he still may need a scope ("bloating has been a problem for some time ") - Plan Plan:: Impression: Flank pain with history of straight catheterizations Increase frequency/urgency Pyelonephritis - E. Coli sensitive to rocephin History of chronic back pain Bacteremia - E. Coli in 4/4 bottles; Negative repeat thus far - Gram positive rods in 2/4 bottles (suspect contamination but will monitor); Negative repeat thus far Ileus S/P therapeutic colonoscopy Chronic: HLD Plan: IVF Rocephin 2 gm daily Fluids as ordered [place]ams catheter in place 2/2 chronic urinary retention - Dr. Madden office requests leave in UC, E. Coli - sensitive to Rocephin O2 as needed Pain meds Add IS Home meds Daily Labs GS consult, NG tube for ileus Consult PT/OT/CM DVT/GI prophylaxis Code status: Full code; PCP: Migdalia Sanchez PA-C LOS >96 Hrs due to new development of ileus.
[2018-11-11] MEDS: HYDROmorphone 1 MG/ML Syringe IVPUSH PRN ×3 (06:24→12:21)
--- NOTE | 2018-11-11 06:45 | CONS ---
CONSULTING PHYSICIAN: Malissa Bird MD DATE OF CONSULTATION: 11/10/2018 CHIEF COMPLAINT: Follow up diffuse ileus and Felipe. HISTORY OF PRESENT ILLNESS: The patient is admitted here with urosepsis. Over the course of the last several days that has improved significantly, but he has developed an ileus. This has been such that over the course of the last 24 hours, I have been monitoring him closely due to the fact that he has a significant amount of colonic distention. Even last night, I was able to do a digital exam to have some explosive air come out, and I was hopeful that over the course of the next 12-14 hours, things would improve. However, this morning the patient states he is still sore and actually feels a little bit worse. He has had a large amount coming out of his NG tube and he has not had any additional flatus after the movement last evening when I did my rectal exam on him. The KUB this morning really is not improved, and again, the colonic distention is of concern. His daughter is in the room. PHYSICAL EXAMINATION: GENERAL: He is actually awake and alert. He is not tachycardic. He is not febrile. ABDOMEN: His NG tube is bilious in nature and his abdomen is still distended. There are occasional bowel sounds. It is mildly tender as it has been in the last 24 hours. IMPRESSION: At this point in time, I think the patient is in need of an attempted decompressive colonoscopy, although there are risks, benefits. Clearly the risks are perforation or that we could not get the job done. I discussed with him that with the colon we are worried about perforation, just because of the amount of distention there is we need to do something to address this. So the risks are clearly bleeding, infection, heart attack, , perforation, and the fact that he might need surgery. I also discussed with them that the other purpose is we want to get a look at the mucosa to make sure that everything still looks viable. He does not have any signs of necrotic bowel, but again certainly this is something to worry about. We also discussed the issue of transferring to a higher level of care, but they request to stay here and we will see if we can at least get some handle on the colonic distention. Urosepsis. Clearly this is significantly improved. The etiology for his straight cathing obviously is something that is going to be addressed. Nutrition. Hopefully that we get this colonic decompressed, things will start moving and we will be able to start p.o. again, but for now let us get this done. SANTA /[id number]
[2018-11-11] MEDS: Lidocaine 5% 700 MG Patch TOP SCH (08:38)
[2018-11-11] MEDS: Gabapentin 100 MG Cap PO SCH ×2 (09:00→15:43)
[2018-11-11] MEDS: Multivitamins,Therapeutic Tab PO SCH (09:00)
[2018-11-11] MEDS: Acetaminophen 325 MG Tab PO PRN (09:02)
[2018-11-11] MEDS: Tamsulosin 0.4 MG Cap.ER PO SCH (09:02)
--- NOTE | 2018-11-11 10:07 | CR ---
Chest: Frontal view of the chest was obtained. Comparison: Prior chest x-ray of 11/08/18. Study centered to the left side of the chest. Portion of the right chest was not included. Heart size is normal. Mild tortuosity of the thoracic aorta is seen. Slight left basilar atelectasis is noted. Tip of nasogastric tube appears to be within the stomach. Bony structures are unchanged. Impression: 1. Tip of nasogastric tube within the stomach. 2. Mild left basilar atelectasis. Diagnostic code #2 Agree with preliminary report issued by [facility], preliminary report finalized on 5018, 5:16 AM Central Time
--- NOTE | 2018-11-11 10:08 | CR ---
Abdomen: Supine view of the abdomen was obtained. Diffuse gaseous dilatation of colon and small bowel is noted. Lack of rectal gas is seen. Nasogastric tube is noted. Surgical clips are seen within the upper abdomen. Degenerative change and scoliosis is noted within the spine. Left hip prosthesis is noted. Joint space narrowing is noted within the right hip. Impression: 1. Diffuse gaseous dilatation of colon and small bowel. Lack of rectal gas is noted on current study. 2. Findings presumably represent persisting and severe ileus. As mentioned previously, please exclude any symptoms of bowel ischemia as the etiology. 3. Other incidental findings. Tip of nasogastric tube within the stomach. Diagnostic code #3
--- NOTE | 2018-11-11 11:19 | PCM.DCSUM1 ---
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 PCP is Jacquie Lewis whom he saw on 11/01/18 for a routine evaluation. The patient and his daughter report an unremarkable visit. However less than 24 hours later he developed significant flank pain. It has become more severe 2 days [employer]. 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 UA is suggestive of a possible AUTI/pyelonephritis; he is admitted to [facility] with tele. The patient is a full code. Diagnosis: Stroke: No - Discharge Data Discharge Date: 11/11/18 (Admit date: 11/06/18) Discharge Disposition: DC/Tfer to Acute Hospital 02 Condition: Stable - Discharge Diagnosis/Problem(s) (1) Bacteremia SNOMED Code(s): 2348271 ICD Code: R78.81 - BACTEREMIA Status: Acute Priority: High Current Visit: Yes (2) Dehydration SNOMED Code(s): 37505084 ICD Code: E86.0 - DEHYDRATION Status: Acute Priority: High Current Visit: Yes (3) Hyperlipidemia SNOMED Code(s): 07822496 ICD Code: E78.5 - HYPERLIPIDEMIA, UNSPECIFIED Status: Chronic Priority: Low Current Visit: No Qualifiers: Hyperlipidemia type: unspecified Qualified Code(s): E78.5 - Hyperlipidemia , unspecified (4) Pyelonephritis SNOMED Code(s): 14610423 ICD Code: N12 - TUBULO-INTERSTITIAL NEPHRITIS, NOT SPCF ACUTE OR CHRONIC Status: Acute Priority: High Current Visit: Yes (5) Vomiting SNOMED Code(s): 081403720 ICD Code: R11.10 - VOMITING, UNSPECIFIED Status: Resolved Priority: Medium Current Visit: Yes Qualifiers: Vomiting type: unspecified Vomiting Intractability: non-intractable Nausea presence: with nausea Qualified Code(s): R11.2 - Nausea with vomiting, unspecified (6) Ileus SNOMED Code(s): 488289047 ICD Code: K56.7 - ILEUS, UNSPECIFIED Status: Acute Priority: High Current Visit: Yes (7) Urinary retention SNOMED Code(s): 489706575 ICD Code: R33.9 - RETENTION OF URINE, UNSPECIFIED Status: Chronic Priority: High Current Visit: Yes (8) Diverticulosis SNOMED Code(s): 65273211 ICD Code: K57.90 - DVRTCLOS OF INTEST, PART UNSP, W/O PERF OR ABSCESS W/O BLEED Status: Chronic Priority: Low Current Visit: Yes Qualifiers: Diverticulosis site: diverticulosis of large intestine Diverticulosis bleeding: diverticulosis without bleeding Qualified Code(s): K57.30 - Diverticulosis of large intestine without perforation or abscess without bleeding - Patient Summary/Data Consults: Consultations 11/07/18 09:00 Consult to Occupational Therapy [OT Evaluation and Treatment] [CONS] Routine Consult to Physical Therapy [PT Evaluation and Treatment] [CONS] Routine 11/07/18 09:58 Consult to Spiritual Care [CONS] Routine 11/07/18 10:00 Consult to Case Management/Beauty Consultant [CONS] Routine 11/11/18 06:24 Consult to Physician [CONS] Routine Hospital Course: Impression: Flank pain with history of straight catheterizations Increase frequency/urgency Pyelonephritis - E. Coli sensitive to rocephin History of chronic back pain Bacteremia - E. Coli in 4/4 bottles; Negative repeat thus far - Gram positive rods in 2/4 bottles (suspect contamination but will monitor); Negative repeat thus far Ileus S/P therapeutic colonoscopy Chronic HLD Plan: IVF Rocephin 2 gm daily Fluids as ordered Mcwilliams catheter in place 2/2 chronic urinary retention - Dr. Madden office requests leave in , E. Coli - sensitive to Rocephin O2 as needed Pain meds Add IS Home meds Daily Labs GS consult, NG tube for ileus Consult PT/OT/CM DVT/GI prophylaxis Code status: Full code; PCP: Migdalia Sanchez PA-C LOS >96 Hrs due to new development of ileus. Mr. Georges presented to our facility on 11/06/18 with flank pain and weakness. His history includes HLD, chronic back pain and chronic urinary retention. He was examined in the ED and admitted for suspected pyelonephritis. He does straight cath himself and has been doing so for some time. Mcwilliams catheter was placed after he was noted to have significant urinary retention in the ED. Old records were obtained noting the patient was seen by Dr. Madden, urology in 2012 and a TURP procedure was apparently discussed. The patient at that time reported it was harvest season and he would straight cath until after completion and then follow-up. There has been no known urology follow-up since then. His urine culture grew out E. Coli and 4/4 blood culture bottles were also positive for E. Coli. He did have a single positive gram positive return on his anaerobic culture. Several days into his hospitalization a second anaerobic culture became positive and both eventually returned Strep Bovis. Sensitivities returned sensitive to Rocephin. He had originally been given 1gm in ED and then was moved up to 2gm on the floor. Repeat cultures were obtained after 48 hours of treatment and have been negative after 2 days thus far. He initially had some fevers of 101 but they did break. He had been complaining of pain radiating from his back/flank area up into his abdomen. After 2 days he reported worsening abdominal pain and distention. KUB was obtained and extensive colonic bowel gas was noted. CT scan was obtained showing suspected ileus. He was also noted to have bilateral hydronephrosis. Dr. Bird, general surgery was consulted. NG tube was placed with significant return. He was made NPO and IV fluids were initiated. Suppositories were started with no results. He denied any flatus. Ultimately his distention continued and on repeat KUBs he was noted to have small bowel distention in addition to his large bowel. Decision was made to take him for a therapeutic colonoscopy to attempt to remove some of the gas. Dr. Bird noted healthy looking mucosa up until the transverse colon, at which point she encountered some stool. She did irrigate this and did note the colon was collapsing around the scope as she was withdrawing. Diverticuli were noted but there were no signs of inflammation that she could see. CRP has remained elevated in the 20's throughout his stay and no leukocytosis has been noted. Today a KUB was obtained showing "1. Diffuse gaseous dilation of the colon small bowel. Lack of rectal gas is noted on current study. 2. Findings presumably represent persisting and severe ileus. As mentioned previously, please exclude any symptoms of bowel ischemia as etiology. 3. Other incidental findings. Tip of the nasogastric tube within the stomach." He was also noted to have a fever of 101.3 last night which has since resolved. At that time Dr. Bird, general surgery recommended transfer, along with Dr. Cordova, Hospitalist attending. Call was placed to [facility] in [place] and report was given to Dr. Blancas, hospitalist, who suggested contacting Dr. Huff, on-call surgeon. Report was given to Dr. Huff who stated she would gladly see Mr. Georges in consult. Dr. Blancas agreed to transport. Family has been heavily involved in Mega's care throughout his stay. Family requested he be transferred by [facility] in [place] if at all able. They were contacted and do have a truck mechanic available and would gladly transfer patient. He was then transferred by ground ambulance with ALS services to [facility] in [place]. - Patient Instructions Diet: NPO - Discharge Plan *PRESCRIPTION DRUG MONITORING PROGRAM REVIEWED*: No *COPY OF PRESCRIPTION DRUG MONITORING REPORT IN PATIENT XIMENA: No Home Medications: Home Meds Acetaminophen [Tylenol] 650 mg PO DAILY 11/06/18 [History] Ascorbate Calcium [Vitamin C] 500 mg PO DAILY 11/06/18 [History] Cholecalciferol (Vitamin D3) [Vitamin D] 5,000 units PO DAILY 11/06/18 [History] Cyanocobalamin (Vitamin B12) [Vitamin B12] 1,000 mcg PO DAILY 11/06/18 [History] Fluticasone Propionate [Flonase Allergy Relief] 2 spray NASBOTH DAILY 11/06/18 [ History] Ibuprofen/Diphenhydramine Cit [Advil Pm Caplet] 2 tab PO BEDTIME 11/06/18 [ History] Rosuvastatin Calcium 10 mg PO BEDTIME 11/06/18 [History] Temazepam [Restoril] 30 mg PO BEDTIME 11/06/18 [History] Oxygen Flow Rate (L/min): 2 Maintain SpO2% greater than: 90 Patient Handouts: Pyelonephritis, Adult, [id number], Ileus Referrals: Migdalia Sanchez PA-C [Primary Care Provider] - - Discharge Summary/Plan Comment DC Time >30 min.: Yes (60 minutes ) - General Info Date of Service: 11/11/18 Subjective Update: In to see Mega. He reports his pain has improved slightly from yesterday. KUB was obtained at the request of Dr. Bird this AM. This was interpreted by Dr. Nunn as "1. Diffuse gaseous dilation of the colon small bowel. Lack of rectal gas is noted on current study. 2. Findings presumably represent persisting and severe ileus. As mentioned previously, please exclude any symptoms of bowel ischemia as etiology. 3. Other incidental findings. Tip of the nasogastric tube within the stomach." He did spike a single fever of 101.3 last night. This has since resolved and no other fevers have been present. Based on the above abdominal report, continuing pain, and fever tonight it is felt that he would be best served in [place] at a higher level facility. This is the recommendation of Dr. Bird. Dr. Blancas at [facility] in [place] is contacted along with Dr. Huff, general surgeon and report given. He will be transferred today. Functional Status: Reports: Pain Controlled, Ambulating, Urinating (Mcwilliams in place), Incentive Spirometry. Denies: Tolerating Diet (NPO), New Symptoms - Review of Systems General: Reports: Fever (Once overnight ), Weakness, Fatigue, Malaise, Chills HEENT: Reports: Other (NG tube in place). Denies: Headaches, Sore Throat Pulmonary: Reports: No Symptoms. Denies: Shortness of Breath, Cough, Sputum, Wheezing Cardiovascular: Reports: No Symptoms. Denies: Chest Pain, Palpitations, Dyspnea on Exertion, Edema, Lightheadedness Gastrointestinal: Reports: Abdominal Pain, Constipation. Denies: Nausea, Vomiting Genitourinary: Reports: No Symptoms, Other (Mcwilliams in place ) Musculoskeletal: Reports: No Symptoms Skin: Reports: No Symptoms Neurological: Reports: Difficulty Walking (2/2 pain), Weakness, Gait Disturbance Psychiatric: Reports: No Symptoms - Patient Data Vitals - Most Recent: Last Vital Signs Temp 98.4 F 11/11/18 08:28 Pulse 87 11/11/18 08:28 Resp 20 11/11/18 08:28 BP 157/71 H 11/11/18 08:28 Pulse Ox 97 11/11/18 08:28 Weight - Most Recent: 277 lb 6.4 oz I&O - Last 24 hours: Intake & Output 11/10/18 11/11/18 11/11/18 22:59 06:59 14:59 Intake Total 1825 1798 Output Total 1396 2085 200 Balance 429 -287 -200 Lab Results - Last 24 hrs: Laboratory Results - last 24 hr 11/10/18 11/11/18 11/11/18 Range/Units 18:21 01:57 05:50 WBC 8.86 (4.23-9.07) K/mm3 RBC 3.71 L (4.63-6.08) M/mm3 Hgb 10.7 L (13.7-17.5) gm/L Hct 32.6 L (40.1-51.0) % MCV 87.9 (79.0-92.2) fl MCH 28.8 (25.7-32.2) pg MCHC 32.8 (32.2-35.5) g/dl RDW Std Deviation 43.1 (35.1-43.9) fL Plt Count 272 (163-337) K/mm3 MPV 9.7 (9.4-12.3) fl Neut % (Auto) 86.5 H (34.0-67.9) % Lymph % (Auto) 7.0 L (21.8-53.1) % [place] % (Auto) 5.1 L (5.3-12.2) % Eos % (Auto) 0.8 (0.8-7.0) Baso % (Auto) 0.1 (0.1-1.2) % Neut # (Auto) 7.67 H (1.78-5.38) K/mm3 Lymph # (Auto) 0.62 L (1.32-3.57) K/mm3 [place] # (Auto) 0.45 (0.30-0.82) K/mm3 Eos # (Auto) 0.07 (0.04-0.54) K/mm3 Baso # (Auto) 0.01 (0.01-0.08) K/mm3 Manual Slide Review Normal smear Sodium (136-145) mEq/L Potassium (3.5-5.1) mEq/L Chloride (98-107) mEq/L Carbon Dioxide (21-32) mEq/L Anion Gap (5-15) BUN (7-18) mg/dL Creatinine (0.7-1.3) mg/dL Est Cr Clr Drug Dosing mL/min Estimated GFR (MDRD) (>60) mL/min BUN/Creatinine Ratio (14-18) Glucose (83-115) mg/dL POC Glucose 109 (83-110) mg/dL Lactic Acid (0.4-2.0) mmol/L Calcium (8.5-10.1) mg/dL Magnesium (1.8-2.4) mg/dl C-Reactive Protein (<1.0) mg/dL Ur Specific [place] 1.020 (1.005-1.030) 11/11/18 11/11/18 11/11/18 Range/Units 05:50 05:50 06:23 WBC (4.23-9.07) K/mm3 RBC (4.63-6.08) M/mm3 Hgb (13.7-17.5) gm/L Hct (40.1-51.0) % MCV (79.0-92.2) fl MCH (25.7-32.2) pg MCHC (32.2-35.5) g/dl RDW Std Deviation (35.1-43.9) fL Plt Count (163-337) K/mm3 MPV (9.4-12.3) fl Neut % (Auto) (34.0-67.9) % Lymph % (Auto) (21.8-53.1) % [place] % (Auto) (5.3-12.2) % Eos % (Auto) (0.8-7.0) Baso % (Auto) (0.1-1.2) % Neut # (Auto) (1.78-5.38) K/mm3 Lymph # (Auto) (1.32-3.57) K/mm3 [place] # (Auto) (0.30-0.82) K/mm3 Eos # (Auto) (0.04-0.54) K/mm3 Baso # (Auto) (0.01-0.08) K/mm3 Manual Slide Review Sodium 147 H (136-145) mEq/L Potassium 3.6 (3.5-5.1) mEq/L Chloride 110 H (98-107) mEq/L Carbon Dioxide 29 (21-32) mEq/L Anion Gap 11.6 (5-15) BUN 33 H (7-18) mg/dL Creatinine 0.9 (0.7-1.3) mg/dL Est Cr Clr Drug Dosing 76.14 mL/min Estimated GFR (MDRD) > 60 (>60) mL/min BUN/Creatinine Ratio 36.7 H (14-18) Glucose 104 (83-115) mg/dL POC Glucose 108 (83-110) mg/dL Lactic Acid 1.3 (0.4-2.0) mmol/L Calcium 8.9 (8.5-10.1) mg/dL Magnesium 2.2 (1.8-2.4) mg/dl C-Reactive Protein 20.9 H* (<1.0) mg/dL Ur Specific [place] (1.005-1.030) SHAWNA Results - Last 24 hrs: Microbiology 11/06/18 13:05 Aerobic Blood Culture - Final Blood Escherichia Coli Anaerobic Blood Culture - Preliminary Escherichia Coli Streptococcus Bovis Group 11/06/18 13:15 Aerobic Blood Culture - Final Blood Escherichia Coli Anaerobic Blood Culture - Preliminary Escherichia Coli Streptococcus Bovis Group 11/07/18 13:00 Aerobic Blood Culture - Preliminary Blood - Venous Escherichia Coli Anaerobic Blood Culture - Preliminary NO GROWTH AFTER 3 DAYS 11/08/18 15:09 Aerobic Blood Culture - Preliminary Blood - Venous NO GROWTH AFTER 2 DAYS Anaerobic Blood Culture - Preliminary NO GROWTH AFTER 2 DAYS 11/08/18 15:00 Aerobic Blood Culture - Preliminary Blood NO GROWTH AFTER 2 DAYS Anaerobic Blood Culture - Preliminary NO GROWTH AFTER 2 DAYS 11/07/18 13:18 Aerobic Blood Culture - Final Blood - Venous - Lab Draw Escherichia Coli Anaerobic Blood Culture - Preliminary NO GROWTH AFTER 3 DAYS Med Orders - Current: Current Medications Acetaminophen (Tylenol) 650 mg PO Q6H PRN PRN Reason: Pain/Fever Last Admin: 11/11/18 09:02 Dose: 650 mg Benzocaine (Hurricaine 20% [place]) 0 ml MUCMEM Q4HR PRN PRN Reason: Other Last Admin: 11/08/18 20:58 Dose: 1 spray Docusate Sodium (Colace) 100 mg PO BID PRN PRN Reason: Constipation Last Admin: 11/09/18 20:59 Dose: 100 mg Gabapentin (Neurontin) 200 mg PO TID NAZ Last Admin: 11/11/18 09:00 Dose: 200 mg Hydralazine HCl (Apresoline) 20 mg IVPUSH Q6H PRN PRN Reason: Hypertension Hydromorphone HCl (Dilaudid) 0.5 mg IVPUSH Q4H PRN PRN Reason: Severe pain Last Admin: 11/11/18 06:24 Dose: 0.5 mg Ceftriaxone Sodium 2 gm/ (Sodium Chloride) 100 mls @ 200 mls/hr IV Q24H [facility], [facility] Last Admin: 11/10/18 14:22 Dose: 200 mls/hr Potassium Chloride/Sodium Chloride (Normal Saline With 20 Meq Kcl) 1,000 mls @ 200 mls/hr IV ASDIRECTED [facility], [facility]–1983 Last Admin: 11/11/18 10:53 Dose: 125 mls/hr Ketorolac Tromethamine (Toradol) 15 mg IVPUSH Q6H [facility] Last Admin: 11/11/18 06:20 Dose: 15 mg Lidocaine (Lidoderm 5%) 700 mg TOP Q24H [facility] Last Admin: 11/11/18 08:38 Dose: 700 mg Miscellaneous Information (Remove Patch) 0 ea TRDERM Q24H [facility], [facility] Last Admin: 11/10/18 23:55 Dose: 1 ea Multivitamins (Thera) 1 each PO DAILY [facility] Last Admin: 11/11/18 09:00 Dose: 1 each Ondansetron HCl (Zofran) 4 mg IVPUSH Q8H PRN PRN Reason: Nausea/Vomiting Simethicone (Simethicone) 80 mg PO Q6H PRN PRN Reason: Gas Sodium Chloride (Saline Flush) 10 ml FLUSH ASDIRECTED PRN PRN Reason: Keep Vein Open Last Admin: 11/08/18 16:02 Dose: 10 ml Tamsulosin HCl (Flomax) 0.4 mg PO PCBREAKFAST [facility] Last Admin: 11/11/18 09:02 Dose: 0.4 mg Temazepam (Restoril) 15 mg PO BEDTIME [facility] Last Admin: 11/10/18 20:31 Dose: 15 mg Discontinued Medications Acetaminophen (Tylenol) 975 mg PO NOW ONE Stop: 11/06/18 14:59 Last Admin: 11/06/18 15:25 Dose: 975 mg Hydrocodone Bitart/Acetaminophen ([place] 325-5 Mg) 1 tab PO Q6H PRN PRN Reason: Pain (moderate 4-6) Last Admin: 11/07/18 04:20 Dose: 1 tab Hydrocodone Bitart/Acetaminophen ([place] 325-5 Mg) 1 tab PO Q4H PRN PRN Reason: Pain (moderate 4-6) Last Admin: 11/09/18 15:44 Dose: 1 tab Bisacodyl (Dulcolax) 10 mg RECTAL ONETIME ONE Stop: 11/08/18 12:42 Last Admin: 11/08/18 12:50 Dose: 10 mg Bisacodyl (Dulcolax) 10 mg RECTAL ONETIME ONE Stop: 11/08/18 17:55 Last Admin: 11/08/18 17:54 Dose: 10 mg Bisacodyl (Dulcolax) 10 mg RECTAL ONETIME ONE Stop: 11/09/18 07:16 Last Admin: 11/09/18 07:39 Dose: 10 mg Ceftriaxone Sodium (Rocephin) 2 gm IVPUSH Q24H NAZ Diatrizoate Meglum/Diatrizoate Sod (Gastrografin 37%) 90 ml PO ONETIME ONE Stop: 11/08/18 15:57 Last Admin: 11/08/18 16:02 Dose: 90 ml Enoxaparin Sodium (Lovenox) 40 mg SUBCUT Q24H [facility] Last Admin: 11/07/18 18:17 Dose: 40 mg Folic Acid (Folic Acid) 1 mg PO DAILY [facility] Last Admin: 11/10/18 11:23 Dose: Not Given Furosemide (Lasix) 20 mg IVPUSH NOW ONE Stop: 11/11/18 01:41 Last Admin: 11/11/18 02:09 Dose: 20 mg Gabapentin (Neurontin) 200 mg PO BEDTIME [facility] Last Admin: 11/07/18 20:45 Dose: 200 mg Hydromorphone HCl (Dilaudid) 0.5 mg IVPUSH ONETIME ONE Stop: 11/06/18 14:59 Last Admin: 11/06/18 15:24 Dose: 0.5 mg Hydromorphone HCl (Dilaudid) 0.5 mg IVPUSH Q8H PRN PRN Reason: Pain Hydromorphone HCl (Dilaudid) 0.5 mg IVPUSH Q8H PRN PRN Reason: Pain Last Admin: 11/07/18 04:45 Dose: 0.5 mg Hydromorphone HCl (Dilaudid) 0.5 mg IVPUSH Q6H PRN PRN Reason: Severe pain Last Admin: 11/08/18 02:16 Dose: 0.5 mg Sodium Chloride (Normal Saline) 1,000 mls @ 999 mls/hr IV ONETIME [facility] Last Admin: 11/06/18 13:30 Dose: 999 mls/hr Ceftriaxone Sodium 1 gm/ (Sodium Chloride) 100 mls @ 200 mls/hr IV ONETIME ONE Stop: 11/06/18 15:08 Last Admin: 11/06/18 15:11 Dose: 200 mls/hr Sodium Chloride (Sodium Chloride 0.45%) 1,000 mls @ 125 mls/hr IV ASDIRECTED [facility] Last Admin: 11/07/18 09:52 Dose: 125 mls/hr Sodium Chloride (Normal Saline) 1,000 mls @ 999 mls/hr IV ONETIME ONE Stop: 11/07/18 10:52 Last Admin: 11/07/18 10:25 Dose: 999 mls/hr Sodium Chloride (Sodium Chloride 0.45%) 1,000 mls @ 150 mls/hr IV ASDIRECTED [facility] Last Admin: 11/07/18 18:16 Dose: 150 mls/hr Sodium Chloride (Sodium Chloride 0.45%) 1,000 mls @ 75 mls/hr IV ASDIRECTED [facility] Last Admin: 11/08/18 04:32 Dose: 75 mls/hr Sodium Chloride (Normal Saline) 1,000 mls @ 75 mls/hr IV ASDIRECTED [facility] Lactated Ringer's (Ringers, Lactated) 500 mls @ 999 mls/hr IV .BOLUS ONE Stop: 11/10/18 10:22 Last Admin: 11/10/18 10:05 Dose: 999 mls/hr Lidocaine HCl (Xylocaine-Mpf 1%) Confirm Administered Dose 4 mls @ as directed .ROUTE .STK-MED ONE Stop: 11/10/18 09:58 Lactated Ringer's (Ringers, Lactated) Confirm Administered Dose 1,000 mls @ as directed .ROUTE .STK-MED ONE Stop: 11/10/18 09:59 Influenza Virus Vaccine (Pharmacy To Dose - Influenza Vaccine) 1 each IM ONETIME ONE Stop: 11/06/18 16:35 Influenza Virus Vaccine (Fluzone High-Dose Syringe) 180 mcg IM .ONCE ONE Stop: 11/06/18 16:46 Iopamidol (Isovue-300 (61%)) 100 ml IVPUSH ONETIME ONE Stop: 11/08/18 15:57 Last Admin: 11/08/18 16:48 Dose: Not Given Ketorolac Tromethamine (Toradol) 30 mg IVPUSH Q6H [facility] Last Admin: 11/08/18 08:05 Dose: Not Given Lidocaine HCl (Xylocaine 2% Jelly) Confirm Administered Dose 10 ml .ROUTE .STK- MED ONE Stop: 11/06/18 15:12 Last Admin: 11/06/18 18:00 Dose: Not Given Lorazepam (Ativan) 0 mg IVPUSH Q6H PRN; Protocol PRN Reason: Anxiety Magnesium Citrate (Citrate Of Magnesia) 296 ml NGTUBE ONETIME ONE Stop: 11/09/18 11:01 Last Admin: 11/09/18 11:30 Dose: 296 ml Propofol (Diprivan 20 Ml) Confirm Administered Dose 200 mg .ROUTE .STK-MED ONE Stop: 11/10/18 09:58 Propofol (Diprivan 20 Ml) Confirm Administered Dose 200 mg .ROUTE .STK-MED ONE Stop: 11/10/18 11:06 Rosuvastatin Calcium (Crestor) 10 mg PO BEDTIME [facility] Last Admin: 11/09/18 20:58 Dose: 10 mg Simethicone (Simethicone) 160 mg PO ONETIME ONE Stop: 11/08/18 13:52 Last Admin: 11/08/18 14:05 Dose: 160 mg Temazepam (Restoril) 30 mg PO BEDTIME [facility] Thiamine HCl (Vitamin B-1) 100 mg PO DAILY [facility] Last Admin: 11/10/18 11:24 Dose: Not Given - Exam Quality Assessment: Reports: Supplemental Oxygen (2L), Urine Catheter, DVT Prophylaxis General: Reports: Alert, Oriented, Cooperative, No Acute Distress HEENT: Reports: Pupils Equal, Pupils Reactive, EOMI, Mucous Membr. Moist/[place] Neck: Reports: Supple, Trachea Midline, No JVD Lungs: Reports: Clear to Auscultation, Normal Respiratory Effort Cardiovascular: Reports: Regular Rate, Regular Rhythm GI/Abdominal Exam: No Distention, No Abnormal Bruit, Distended, Tender, Abnormal Bowel Sounds (Male) Exam: Deferred Rectal (Males) Exam: Deferred Back Exam: Reports: Normal Inspection, Full Range of Motion Extremities: Normal Inspection, Normal Range of Motion, Non-Tender, No Pedal Edema, Normal Capillary Refill Skin: Reports: Warm, Dry, Intact Neurological: Reports: No New Focal Deficit Psy/Mental Status: Reports: Alert, Normal Affect, Normal Mood
[2018-11-11 12:20] VITALS: BP 159/66
[2018-11-11] MEDS: cefTRIAXone 2 GM in Sodium Chloride 0.9% 100 ML IV SCH (15:43)
--- NOTE | 2018-11-14 06:40 | PN ---
DATE OF SERVICE: 11/11/2018 CHIEF COMPLAINT: Ileus. BRIEF HISTORY: Mr. Georges is a patient who I have had the opportunity to follow because of a significant ileus. This do include colonic distention. Yesterday, I was able to do a decompressive colonoscopy. Over the course of the last 24 hours, he did have a single temperature spike of 101. Otherwise, his vital signs have remained same. On his I's and O's, his output of the NG tube is 1000 mL less. The patient states that he just feels slightly bloated, but he does not have the pain that he had before. PHYSICAL EXAMINATION: Abdomen is still distended, but it is softer than it has been as well as the fact that there is no guarding. There are bowel sounds present, although still diminished. IMPRESSION AND PLAN: Clearly, this patient has a prolonged ileus from his "urosepsis." Today, I have looked at the KUB. I feel that the colonic distention is significantly improved, albeit there is still a lot of small bowel. I think that we are at the point where we have to think about long-term nutrition. He does not have a surgical abdomen at this point; however, it is something we will need close monitoring. He also needs to follow up of his urosepsis. The patient is aware, and we are going to try another Fleet's enema here today, but otherwise we are still in a slowly progressive mode making some steps forward, however, at a very slow pace. Today, his electrolytes demonstrate his potassium is 3.6. He still has a normal WBC and his H and H remained stable. SANTA /[id number]
== END 2018-11-11 13:55 | DRG 854 ==
LOC: JD.ED 12:30 → JD.MS 15:26 → JD.ED 15:40 → JD.MS 15:41
PROVIDERS: ADMIT Internal Medicine Cardiovascular Disease; ATTEND Internal Medicine Cardiovascular Disease
PROC: 0D9670Z Drainage of Stomach with Drainage Device, Via Natural or Artificial Opening (ICD-10-PCS; 2018-11-08)
PROC: 0D9L8ZZ Drainage of Transverse Colon, Via Natural or Artificial Opening Endoscopic (ICD-10-PCS; principal; 2018-11-10)
DX: N12 Tubulo-interstitial nephritis, not specified as acute or chronic (principal); R11.2 Nausea with vomiting, unspecified; M54.5 Low back pain; R53.1 Weakness; A41.51 Sepsis due to Escherichia coli [E. coli]; R26.2 Difficulty in walking, not elsewhere classified; R05 Cough; N10 Acute pyelonephritis; K59.39 Other megacolon; K56.7 Ileus, unspecified; R33.9 Retention of urine, unspecified; E86.0 Dehydration; E78.00 Pure hypercholesterolemia, unspecified; E78.5 Hyperlipidemia, unspecified; K57.30 Diverticulosis of large intestine without perforation or abscess without bleeding; K59.00 Constipation, unspecified; G62.9 Polyneuropathy, unspecified; H54.7 Unspecified visual loss; K42.9 Umbilical hernia without obstruction or gangrene; E53.8 Deficiency of other specified B group vitamins; M19.90 Unspecified osteoarthritis, unspecified site; G89.29 Other chronic pain; M54.9 Dorsalgia, unspecified; Z79.899 Other long term (current) drug therapy; Z90.49 Acquired absence of other specified parts of digestive tract; Z87.891 Personal history of nicotine dependence; Z96.642 Presence of left artificial hip joint; Z96.651 Presence of right artificial knee joint
CPT/HCPCS: 36415; 51701; 51702; 71045; 80053; 81001; 83605; 85007; 85027; 86140; 87040 ×2; 87077 ×2; 87086; 87088; 87184; 87186 ×2; 96361; 96365; 96375; 99285; A9270; J0696; J1170; J7030; J7040; 00811; 74018; 74018-26; 74177; 74177-26; 80048; 81003; 82962; 83735; 85025; 94660; 94760; 94761; 97110-GO; 97110-GP; 97116-GP; 97162-GP; 97167-GO; 97530-GO; 97530-GP; 99284; J1650; J1885; J2001; J2704; J3480; J7120; Q9963

== ENCOUNTER 2019-01-11 11:21 | Emergency (ER) | payer MEDICARE, BC ==
[2019-01-11 11:49] VITALS: BP 130/80
[2019-01-11] MEDS ORDERED: Iopamidol 755 Mg/ML 200 ML Bottle IV ONE (13:00)
[2019-01-11] MEDS ORDERED: Diatrizoate Meglumine/Diatrizoate Sodium 37% 120 ML Bottle PO ONE (13:00)
[2019-01-11] MEDS: Sodium Chloride 0.9% 10 ML Syringe FLUSH ONE ×2 (13:24→14:23)
[2019-01-11] MEDS ORDERED: Sodium Chloride 0.9% 1,000 ML IV SCH (13:30)
--- NOTE | 2019-01-11 14:13 | EDM.PDOC ---
ED HPI GENERAL MEDICAL PROBLEM - General Chief Complaint: Genitourinary Problem Stated Complaint: HASNT BEEN ABLE TO VOID FOR OVER 24 HOURS Time Seen by Provider: 01/11/19 11:33 Source of Information: Reports: Patient History Limitations: Reports: No Limitations - History of Present Illness INITIAL COMMENTS - FREE TEXT/NARRATIVE: 83 y/o male presents to the ER with cc unable to void or have a BM. He reports he was recently released from the hospital in [place] for urosepsis. He was discharged from skilled nursing on January 06, 2019. He presents to today with cc bilateral CVA pain that radiates around to his abdomen and shots up into his back. He states nothing make it better, it is worse with movement. He denies chest pain or SOB. He does c/o of being constipated although he did have diarrhea yesterday. He reports he has been self catheterizing himself for the past week and yesterday he was not able to "get any urine out." He does have a history of urinary retention and recent history of bowel obstruction. He denies any fever or chills. He reports he has not eating since yesterday. He is accompanied by his son. He was recently seen by his urologist who removed the catheter and started him on Cipro on 01/05/19. Patient does report he has been using catheters for the past 6 years because he "doesn't feel he is emptying his bladder completely. ' Onset Date: 01/10/19 Onset Time: 12:00 Duration: Getting Worse Location: Reports: Abdomen, Back Quality: Reports: Ache Severity: Mild Improves with: Reports: None Worsens with: Reports: Movement Associated Symptoms: Denies: Chest Pain, Cough, Fever/Chills, Headaches, Nausea/ Vomiting, Shortness of Breath Lower Abdominal Pain Score (Numeric/FACES): 4 - Related Data Allergies Allergy/AdvReac Type Severity Reaction Status Date / Time No Known Allergies Allergy Verified 01/11/19 11:36 Home Meds: Home Meds Ascorbate Calcium [Vitamin C] 500 mg PO DAILY 11/06/18 [History] Cholecalciferol (Vitamin D3) [Vitamin D] 5,000 units PO DAILY 11/06/18 [History] Cyanocobalamin (Vitamin B12) [Vitamin B12] 1,000 mcg PO DAILY 11/06/18 [History] Rosuvastatin Calcium 10 mg PO BEDTIME 11/06/18 [History] Ciprofloxacin HCl [Cipro] 500 mg PO BID 01/11/19 [History] Hydrocodone/Acetaminophen [Anatone 5-325 Tablet] 1 each PO Q6HR PRN 4 Days #16 tablet 01/11/19 [Rx] Magnesium Citrate 295 ml PO QAM 1 Days #1 solution 01/11/19 [Rx] Meloxicam [Mobic] 15 mg PO DAILY 01/11/19 [History] Naloxegol Oxalate [Movantik] 12.5 mg PO DAILY 01/11/19 [History] Nitrofurantoin Monohyd/M-Cryst [Macrobid 100 mg Capsule] 100 mg PO BID 10 Days # 20 capsule 01/11/19 [Rx] Polyethylene Glycol 3350 [MiraLAX] 17 gm PO DAILY PRN 01/11/19 [History] Sennosides/Docusate Sodium [Sennosides-Docusate Sodium] 8.6 - 50 mg PO BID 01/11 [History] Tamsulosin [Flomax] 0.4 mg PO BEDTIME 01/11/19 [History] Zolpidem Tartrate [Ambien] 5 mg PO BEDTIME PRN 01/11/19 [History] traMADol [Ultram] 50 mg PO Q6H PRN 01/11/19 [History] Past Medical History HEENT History: Reports: Impaired Vision Other HEENT History: wears glasses Cardiovascular History: Reports: High Cholesterol, Other (See Below) Other Cardiovascular History: rheumatic fever as child Genitourinary History: Reports: Retention, Urinary, Other (See Below) Other Genitourinary History: straight cath's three times a day at home Musculoskeletal History: Reports: Arthritis, Back Pain, Chronic Neurological History: Reports: Neuropathy, Peripheral, Other (See Below) Other Neuro History: nerve damage Hematologic History: Reports: B12 Deficiency Other Hematologic History: "blood poisioning" x2 - Infectious Disease History Infectious Disease History: Reports: Chicken Pox, Rheumatic Fever - Past Surgical History HEENT Surgical History: Reports: Cataract Surgery Cardiovascular Surgical History: Reports: None GI Surgical History: Reports: Cholecystectomy, Colonoscopy, Other (See Below) Other GI Surgeries/Procedures: hernia repair Male Surgical History: Reports: None Neurological Surgical History: Reports: Other (See Below) Other Neurological Surgeries/Procedures: several back surgeries Musculoskeletal Surgical History: Reports: Carpal Tunnel, Other (See Below) Other Musculoskeletal Surgeries/Procedures:: left hip replaced, right knee replaced, left pinkie finger has a screw in it Social & Family History - Family History Family Medical History: Noncontributory - Tobacco Use Smoking Status *Q: Never Smoker Second Hand Smoke Exposure: No - Caffeine Use Caffeine Use: Reports: Coffee - Recreational Drug Use Recreational Drug Use: No ED ROS GENERAL - Review of Systems Review Of Systems: See Below Constitutional: Denies: Fever, Chills HEENT: Reports: No Symptoms Respiratory: Denies: Shortness of Breath Cardiovascular: Denies: Chest Pain Endocrine: Reports: No Symptoms GI/Abdominal: Reports: Abdominal Pain, Constipation, Diarrhea : Reports: Urinary Retention, Other (self cath) Musculoskeletal: Reports: Back Pain Skin: Reports: Other (eczema on face) Neurological: Reports: No Symptoms Psychiatric: Reports: No Symptoms Hematologic/Lymphatic: Reports: No Symptoms Immunologic: Reports: No Symptoms ED EXAM, GI/ABD - Physical Exam Exam: See Below Exam Limited By: No Limitations General Appearance: Alert, WD/WN, No Apparent Distress Neck: Normal Inspection, Supple, Non-Tender, Full Range of Motion Respiratory/Chest: No Respiratory Distress, Lungs Clear, Normal Breath Sounds, No Accessory Muscle Use, Chest Non-Tender Cardiovascular: Normal Peripheral Pulses, Regular Rate, Rhythm, No Edema, No Gallop, No JVD, No Murmur, No Rub GI/Abdominal Exam: Non-Tender, No Organomegaly, No Mass, Distended, Abnormal Bowel Sounds, Other (hypoactive bowel sounds) Back Exam: CVA Tenderness (L), CVA Tenderness (R), Decreased Range of Motion Extremities: Normal Inspection, Normal Range of Motion, Non-Tender, No Pedal Edema, Normal Capillary Refill Neurological: Alert, Oriented, CN II-XII Intact, Normal Cognition Psychiatric: Normal Affect, Normal Mood Skin Exam: Warm, Dry, Intact, Normal Color, No Rash, Other (facial eczema ) Lymphatic: No Adenopathy Course - Vital Signs Last Recorded V/S: Last Vital Signs Temp 99.0 F 01/11/19 11:30 Pulse 87 01/11/19 11:30 Resp 20 01/11/19 11:30 BP 130/80 01/11/19 11:30 Pulse Ox 99 01/11/19 11:30 - Orders/Labs/Meds Orders: Active Orders 24 hr Category Date Time Status Varghese Catheter Insertion [Insert Urinary Catheter] [OM. Care 01/11/19 12:00 Ordered PC] Q24H Urinary Catheter Assessment [RC] ASDIRECTED Care 01/11/19 11:51 Active Abdomen Pelvis w Cont [CT] Stat Exams 01/11/19 12:51 Taken KUB [Abdomen 1V Flat] [CR] Stat Exams 01/11/19 12:31 Taken Sodium Chloride 0.9% [Normal Saline] 1,000 ml Med 01/11/19 13:30 Active IV ASDIRECTED Medication Orders Sodium Chloride (Normal Saline) 1,000 mls @ 250 mls/hr IV ASDIRECTED NAZ Last Admin: 01/11/19 13:53 Dose: 250 mls/hr Labs: Laboratory Tests 01/11/19 01/11/19 01/11/19 Range/Units 12:03 12:03 13:21 WBC 4.23 (4.23-9.07) K/mm3 RBC 3.57 L (4.63-6.08) M/mm3 Hgb 8.9 L (13.7-17.5) gm/L Hct 28.5 L (40.1-51.0) % MCV 79.8 (79.0-92.2) fl MCH 24.9 L (25.7-32.2) pg MCHC 31.2 L (32.2-35.5) g/dl RDW Std Deviation 43.3 (35.1-43.9) fL Plt Count 274 (163-337) K/mm3 MPV 8.6 L (9.4-12.3) fl Neut % (Auto) 79.4 H (34.0-67.9) % Lymph % (Auto) 13.5 L (21.8-53.1) % [place] % (Auto) 6.4 (5.3-12.2) % Eos % (Auto) 0.5 L (0.8-7.0) Baso % (Auto) 0.2 (0.1-1.2) % Neut # (Auto) 3.36 (1.78-5.38) K/mm3 Lymph # (Auto) 0.57 L (1.32-3.57) K/mm3 [place] # (Auto) 0.27 L (0.30-0.82) K/mm3 Eos # (Auto) 0.02 L (0.04-0.54) K/mm3 Baso # (Auto) 0.01 (0.01-0.08) K/mm3 Sodium 138 (136-145) mEq/L Potassium 3.8 (3.5-5.1) mEq/L Chloride 105 (98-107) mEq/L Carbon Dioxide 20 L (21-32) mEq/L Anion Gap 16.8 H (5-15) BUN 17 (7-18) mg/dL Creatinine 0.9 (0.7-1.3) mg/dL Est Cr Clr Drug Dosing 74.84 mL/min Estimated GFR (MDRD) > 60 (>60) mL/min BUN/Creatinine Ratio 18.9 H (14-18) Glucose 105 (83-115) mg/dL Calcium 9.7 (8.5-10.1) mg/dL Total Bilirubin 0.5 (0.2-1.0) mg/dL AST 15 (15-37) U/L ALT 16 (16-63) U/L Alkaline Phosphatase 103 (46-116) U/L Total Protein 6.8 (6.4-8.2) g/dl Albumin 2.9 L (3.4-5.0) g/dl Globulin 3.9 gm/dL Albumin/Globulin Ratio 0.7 L (1-2) Urine Color Yellow (Yellow) Urine Appearance Slt cloudy H (Clear) Urine pH 6.0 (5.0-8.0) Ur Specific Diamond 1.020 (1.005-1.030) Urine Protein Trace H (Negative) Urine Glucose (UA) Negative (Negative) Urine Ketones Trace H (Negative) Urine Occult Blood Negative (Negative) Urine Nitrite Negative (Negative) Urine Bilirubin Negative (Negative) Urine Urobilinogen 0.2 (0.2-1.0) Ur Leukocyte Esterase 1+ H (Negative) Urine RBC Not seen (0-5) /hpf Urine WBC 5-10 H (0-5) /hpf Urine WBC Clumps Moderate (NOT SEEN) /hpf Ur Epithelial Cells 0-5 (0-5) /hpf Urine Bacteria Many H (FEW) /hpf Urine Mucus Not seen (FEW) /hpf Meds: Medications Generic Name Dose Route Start Last Admin Trade Name Freq PRN Reason Stop Dose Admin Sodium Chloride 1,000 mls @ 250 mls/hr 01/11/19 13:30 01/11/19 13:53 Normal Saline IV 250 mls/hr ASDIRECTED NAZ Administration Discontinued Medications Generic Name Dose Route Start Last Admin Trade Name Taiwo PRN Reason Stop Dose Admin Diatrizoate Meglum/Diatrizoate Sod 90 ml 01/11/19 13:00 01/11/19 14:23 Gastrografin 37% PO 01/11/19 13:01 90 ml ONETIME ONE Administration Iopamidol 100 ml 01/11/19 13:00 01/11/19 14:23 Isovue-370 (76%) IV 01/11/19 13:01 100 ml ONETIME ONE Administration Morphine Sulfate 4 mg 01/11/19 15:05 01/11/19 15:40 Morphine IVPUSH 01/11/19 15:06 Not Given ONETIME ONE Morphine Sulfate 4 mg 01/11/19 15:32 01/11/19 15:40 Morphine Sulfate IV 01/11/19 15:33 4 mg ONETIME ONE Administration Sodium Chloride 10 ml 01/11/19 13:00 01/11/19 14:23 Saline Flush FLUSH 01/11/19 13:01 10 ml ONETIME ONE Administration - Re-Assessments/Exams Free Text/Narrative Re-Assessment/Exam: 01/11/19 14:18 Catheter is collecting moderate dark yellow urine > 700 cc. The patient reports he feels better already. WBC 4.23 H & H 8.9/28.5 (chronic anemia) Na + 138 K+ 3.8 CHL 105 BUN 17 creatine 0.9 alb 2.9 urinalysis trace ketones and protein, + 1 leukocytes, WBC 5-10, Bacteria many 01/11/19 14:50 He is resting comfortably CT results pending. 01/11/19 16:11 CT abdomen reveals multiple bilateral renal cysts measure up to 4.9 cm and the right kidney which demonstrates mild thickening of the wall the cyst, findings which can be seen in association with papillary cystic neoplasms. Correlation with ultrasound or pre-and postcontrast MRI is suggested. Marked thickening and irregularity of contour of the urinary bladder, findings worrisome for bladder neoplasm. 01/11/19 16:15 He reports he feels better and back pain has diminished after receiving the morphine. 01/11/19 17:10 83 y/o male presented to ER with cc bilateral CVA pain that radiates around back and inability to urinate. His abdominal CT revealed CT abdomen reveals multiple bilateral renal cysts measure up to 4.9 cm and the right kidney which demonstrates mild thickening of the wall the cyst, findings which can be seen in association with papillary cystic neoplasms. Correlation with ultrasound or pre-and postcontrast MRI is suggested. Marked thickening and irregularity of contour of the urinary bladder, findings worrisome for bladder neoplasm. I will discharge home with instructions to follow up with his PCP in 2 days for management of varghese catheter. Instructed to follow up with his urologist for further evaluation and treatment of kidney cyst. I will discharge home with Anatone for pain management. I instructed the patient not to take this medication and drink, drive or operate machinery while taking it. I will discharge home with Magnesium Citrate for constipation. Patient and family members verbalize understanding and are comfortable with plan for discharge. He is stable at time of discharge. Instructed to return to the ER for any new or acute worsening symptoms. Departure - Departure Time of Disposition: 17:20 Disposition: Home, Self-Care 01 Condition: Good Clinical Impression: Renal cyst, Urinary retention - Discharge Information Prescriptions: Hydrocodone/Acetaminophen [Anatone 5-325 Tablet] 1 each PO Q6HR PRN 4 Days #16 tablet PRN Reason: take for back pain Magnesium Citrate 295 ml PO QAM 1 Days #1 solution Nitrofurantoin Monohyd/M-Cryst [Macrobid 100 mg Capsule] 100 mg PO BID 10 Days # 20 capsule Instructions: Renal Mass, Constipation, Adult Referrals: Migdalia Sanchez PA-C [Primary Care Provider] - Forms: ED Department Discharge - My Orders Last 24 Hours: My Active Orders 01/11/19 11:51 Urinary Catheter Assessment [RC] ASDIRECTED 01/11/19 12:00 Varghese Catheter Insertion [Insert Urinary Catheter] [OM.PC] Q24H 01/11/19 12:31 KUB [Abdomen 1V Flat] [CR] Stat 01/11/19 12:51 Abdomen Pelvis w Cont [CT] Stat 01/11/19 13:30 Sodium Chloride 0.9% [Normal Saline] 1,000 ml IV ASDIRECTED - Assessment/Plan Last 24 Hours: My Active Orders 01/11/19 11:51 Urinary Catheter Assessment [RC] ASDIRECTED 01/11/19 12:00 Varghese Catheter Insertion [Insert Urinary Catheter] [OM.PC] Q24H 01/11/19 12:31 KUB [Abdomen 1V Flat] [CR] Stat 01/11/19 12:51 Abdomen Pelvis w Cont [CT] Stat 01/11/19 13:30 Sodium Chloride 0.9% [Normal Saline] 1,000 ml IV ASDIRECTED
[2019-01-11] MEDS ORDERED: Morphine 4 MG/ML Syringe IVPUSH ONE (15:05)
--- NOTE | 2019-01-12 08:15 | CR ---
Abdomen: Supine view of the abdomen was obtained. Comparison: Prior abdominal x-ray of 01/09/19. Left hip prosthesis is seen. Joint space narrowing is noted within the right hip as well as disc space narrowing seen throughout the spine. Scoliosis is noted within the spine with scattered endplate osteophytes. Slightly prominent gas noted within colon and small bowel which is felt to be incidental. No abnormal amounts of stool are seen. No additional abnormality is appreciated. Impression: 1. Incidental findings. Nothing acute is suspected. Diagnostic code #2
--- NOTE | 2019-01-12 09:25 | CT ---
CT abdomen and pelvis Technique: Multiple axial sections were obtained from above the dome of the diaphragm inferiorly through the pubic symphysis. Intravenous contrast was utilized. Oral contrast was also given. Comparison: Prior abdominal and pelvic CT study of 11/08/18. Findings: Visualized lung bases show nothing acute. Small low density finding noted within the dome of the right lobe. Larger low density finding seen more inferiorly within the right lobe. Findings are felt compatible with incidental liver cysts which are stable from previous exam. Surgical clips are seen from prior cholecystectomy. Spleen appears within normal limits. Adrenal glands show no nodule. Pancreas appears within normal limits. Cysts are identified within both kidneys. Preliminary report states possible renal cell carcinoma which I believe is a very low probability within the cysts unless patient has hematuria. No hydronephrosis or discrete solid abnormality is seen within the kidneys. No ureteral calculi are seen. Aorta shows atherosclerotic change which continues into the iliac vessels without aneurysm. No retroperitoneal adenopathy or mesenteric abnormalities are seen. Bladder is diffusely thick-walled with Mcwilliams catheter in place. Incidental fat containing anterior abdominal wall hernias are noted. Bowel gas appears to be within normal limits. Degenerative change noted throughout the spine. Degenerative change noted within the right hip. Left hip prosthesis is seen. Impression: 1. Markedly thickened bladder wall with Mcwilliams catheter. Bladder wall thickening noted on prior CT exam. Findings appear increased. Some of this may relate to lack of distention with wall thickening due to bladder outlet obstruction. If patient has any symptoms of hematuria, cystoscopy is recommended. 2. Cysts within the kidneys which appear stable from prior exam. Preliminary report states possible renal cell carcinoma within the cystic areas which I believe is very remote. No further follow-up felt to be needed if patient has no symptoms of hematuria. 3. Stable liver cysts as well as other incidental findings. Nothing acute is identified. Diagnostic code #2 I agree with preliminary report issued by [facility] ([facility] report finalized on 01/11/19, 3:53 PM Central Time.
== END 2019-01-11 17:44 | disposition home or self-care (01) ==
LOC: JD.ED 11:21
DX: N28.1 Cyst of kidney, acquired (principal); R33.9 Retention of urine, unspecified; E78.00 Pure hypercholesterolemia, unspecified; Z79.899 Other long term (current) drug therapy
CPT/HCPCS: 36415; 51702; 74018; 74177; 80053; 81001; 85025; 96361; 96374; 99284; J2270; J7040; Q9963; Q9967

== ENCOUNTER 2019-01-15 20:50 | Emergency (ER) | payer MEDICARE, BC ==
[2019-01-15 21:06] VITALS: BP 142/86
--- NOTE | 2019-01-15 21:08 | EDM.PDOC ---
ED HPI GENERAL MEDICAL PROBLEM - General Chief Complaint: Genitourinary Problem Stated Complaint: CATHETER ISSUES BACK PAIN Time Seen by Provider: 01/15/19 21:05 Source of Information: Reports: Patient, Old Records (ED visit 01/11/2019), RN Notes Reviewed History Limitations: Reports: No Limitations - History of Present Illness INITIAL COMMENTS - FREE TEXT/NARRATIVE: Medical records indicate that the patient was seen in this ED this past 01/11/2019, with a complaint of being unable to void, with bilateral flank pain. He had just been released from a shelter on 01/06/2019, after being admitted to a hospital in [place] for pyelonephritis. He had been treated with ciprofloxacin, switched to Levaquin. The patient has a history of chronic urinary obstruction, requiring self-catheterization several times a day , which the patient tells me he has been doing for the past 6 years, approximately. He states that he has a history of BPH, but it is his understanding that it is not the BPH that is the cause of his urinary retention - he doesn't know why he has urinary retention. When he presented to the ED on , he reported that he had been unable to get any urine out since the day before. He denied fever or chills. A Mcwilliams catheter was placed in the ED, draining more than 700 mL of urine. The urinalysis showed a moderate amount of WBC in clumps, 1+ leukocyte esterase, and many bacteria. A urine culture was not sent. His CBC and CMP were unremarkable. An abdominal flat plate found no significant abnormalities, including no increased stool. A CT scan of his abdomen and pelvis with oral and IV contrast noted a markedly thickened bladder wall. The patient was discharged home with prescriptions for 16 tablets of [place], magnesium citrate, and nitrofurantoin 100 mg BID x 10 days. The patient now returns to the ED stating that he started having some lower abdominal pain this morning, and no urine output from his Mcwilliams catheter since around noon. No recent fever. He states that he has been compliant with his nitrofurantoin. The patient's PCP is Migdalia Sanchez. His Urologist is Dr. Wilson Nix, from [place], [place]. Bladder Pain Score (Numeric/FACES): 9 - Related Data Allergies Allergy/AdvReac Type Severity Reaction Status Date / Time No Known Allergies Allergy Verified 01/15/19 21:03 Home Meds: Home Meds Ascorbate Calcium [Vitamin C] 500 mg PO DAILY 11/06/18 [History] Cholecalciferol (Vitamin D3) [Vitamin D] 5,000 units PO DAILY 11/06/18 [History] Cyanocobalamin (Vitamin B12) [Vitamin B12] 1,000 mcg PO DAILY 11/06/18 [History] Rosuvastatin Calcium 10 mg PO BEDTIME 11/06/18 [History] Hydrocodone/Acetaminophen [[place] 5-325 Tablet] 1 each PO Q6HR PRN 4 Days #16 tablet 01/11/19 [Rx] Magnesium Citrate 295 ml PO QAM 1 Days #1 solution 01/11/19 [Rx] Meloxicam [Mobic] 15 mg PO DAILY 01/11/19 [History] Naloxegol Oxalate [Movantik] 12.5 mg PO DAILY 01/11/19 [History] Nitrofurantoin Monohyd/M-Cryst [Macrobid 100 mg Capsule] 100 mg PO BID 10 Days # 20 capsule 01/11/19 [Rx] Polyethylene Glycol 3350 [MiraLAX] 17 gm PO DAILY PRN 01/11/19 [History] Sennosides/Docusate Sodium [Sennosides-Docusate Sodium] 8.6 - 50 mg PO BID 01/11 [History] Tamsulosin [Flomax] 0.4 mg PO BEDTIME 01/11/19 [History] Zolpidem Tartrate [Ambien] 5 mg PO BEDTIME PRN 01/11/19 [History] traMADol [Ultram] 50 mg PO Q6H PRN 01/11/19 [History] Past Medical History HEENT History: Reports: Impaired Vision Other HEENT History: wears glasses Cardiovascular History: Reports: High Cholesterol Genitourinary History: Reports: BPH, Retention, Urinary (straight-catheterizes) Musculoskeletal History: Reports: Osteoarthritis, Other (See Below) (Spinal stenosis) Neurological History: Reports: Neuropathy, Peripheral (paresthesia to both lower extremities 2 spinal stenosis) Endocrine/Metabolic History: Reports: Obesity/BMI 30+ - Infectious Disease History Infectious Disease History: Reports: Chicken Pox, Rheumatic Fever (as a child) - Past Surgical History HEENT Surgical History: Reports: Cataract Surgery (bilateral) GI Surgical History: Reports: Cholecystectomy, Colonoscopy (x 1), Hernia, Inguinal Neurological Surgical History: Reports: Lumbar Spine (laminectomy x 2) Musculoskeletal Surgical History: Reports: Carpal Tunnel (right only), Hip Replacement (left), Knee Replacement (right), Other (See Below) (Left 5th finger pinning) Social & Family History - Family History Family Medical History: Noncontributory - Tobacco Use Smoking Status *Q: Never Smoker - Caffeine Use Caffeine Use: Reports: Coffee - Alcohol Use Alcohol Use History: Yes Alcohol Use Frequency: Rarely - Recreational Drug Use Recreational Drug Use: No - Living Situation & Occupation Living situation: Reports: , with Spouse Occupation: Retired ED ROS GENERAL - Review of Systems Review Of Systems: ROS reveals no pertinent complaints other than HPI. ED EXAM, RENAL/ - Physical Exam Exam: See Below Exam Limited By: No Limitations General Appearance: Alert, WD/WN, No Apparent Distress Eye Exam: Bilateral Eye: EOMI, Normal Inspection Ears: Normal External Exam, Hearing Grossly Normal Nose: Normal Inspection Throat/Mouth: Normal Inspection, Normal Lips, Normal Voice, No Airway Compromise Head: Atraumatic, Normocephalic Neck: Normal Inspection, Full Range of Motion Respiratory/Chest: No Respiratory Distress, Lungs Clear, Normal Breath Sounds, No Accessory Muscle Use Cardiovascular: Normal Peripheral Pulses, Regular Rate, Rhythm, No Gallop, No JVD, No Murmur, No Rub GI/Abdominal: Normal Bowel Sounds, Soft, No Organomegaly, No Distention, No Abnormal Bruit, No Mass, Tender (Suprapubically only. Nontender elsewhere.), Other (Obese) (Male) Exam: Deferred Rectal (Males) Exam: Deferred Extremities: Normal Inspection, Normal Range of Motion, Normal Capillary Refill Neurological: Alert, Oriented, Normal Cognition, No Motor/Sensory Deficits Psychiatric: Normal Affect Skin Exam: Warm, Dry, Intact, Normal Color, No Rash Course - Vital Signs Last Recorded V/S: Last Vital Signs Temp 37.4 C 01/15/19 21:03 Pulse 86 01/15/19 21:03 Resp 20 01/15/19 21:03 BP 142/86 H 01/15/19 21:03 Pulse Ox 100 01/15/19 21:03 - Orders/Labs/Meds Orders: Active Orders 24 hr Category Date Time Status Bladder Scan [RC] ASDIRECTED Care 01/15/19 21:58 Ordered Insert Mcwilliams Catheter [Insert Urinary Catheter] [OM.PC] Care 01/15/19 21:15 Ordered Q24H Urinary Catheter Assessment [RC] ASDIRECTED Care 01/15/19 21:09 Active Urinary Catheter Removal [RC] Per Unit Routine Care 01/15/19 21:08 Active - Re-Assessments/Exams Free Text/Narrative Re-Assessment/Exam: 01/15/19 21:07 A bladder scan revealed 1237 mL of retained urine, despite the presence of a Mcwilliams catheter. Instead of simply irrigating his current catheter, I recommended replacement, since whatever obstruction has built up in the lumen of the catheter, it will likely re-obstruct. A urinalysis from a chronic indwelling Mcwilliams catheter is uninterpretable, therefore I have not ordered a urinalysis, however, I have ordered a urine culture. 01/15/19 21:33 After replacing the Mcwilliams, there was still no urine output, therefore I ordered placement of a 3-way catheter with irrigation. After irrigating out some plugs, his bladder is now draining. The catheter will be replaced with a larger Mcwilliams - 18 Fr. 01/15/19 21:59 Unfortunately, a urine sample for culture was not collected before his bladder was irrigated. Following irrigation of his bladder and replacement with an 18 Fr Mcwilliams catheter , a post void bladder scan revealed only 36 mL of urine remaining in the bladder. The patient will be discharged home. Departure - Departure Time of Disposition: 22:00 Disposition: Home, Self-Care 01 Condition: Good Clinical Impression: Obstructed Mcwilliams catheter - Discharge Information *PRESCRIPTION DRUG MONITORING PROGRAM REVIEWED*: Not Applicable *COPY OF PRESCRIPTION DRUG MONITORING REPORT IN PATIENT XIMENA: Not Applicable Referrals: Migdalia Sanchez PA-C [Primary Care Provider] - Forms: ED Department Discharge Additional Instructions: You were seen in the emergency room after your Mcwilliams catheter stopped draining and you developed lower abdominal pain. Your bladder was irrigated, and your catheter was replaced. Continue to care for your Mcwilliams catheter as you have been doing. Make sure that your leg bag is below your body level when you sleep, to prevent urine from back -flowing into your bladder when you lie down. Follow-up with your Urologist, Dr. Wilson Nix, in [place], [place], at the next available appointment. If any other problems, please do not hesitate to return to the ER. - My Orders Last 24 Hours: My Active Orders 01/15/19 21:08 Urinary Catheter Removal [RC] Per Unit Routine 01/15/19 21:09 Urinary Catheter Assessment [RC] ASDIRECTED 01/15/19 21:15 Insert Mcwilliams Catheter [Insert Urinary Catheter] [OM.PC] Q24H 01/15/19 21:58 Bladder Scan [RC] ASDIRECTED - Assessment/Plan Last 24 Hours: My Active Orders 01/15/19 21:08 Urinary Catheter Removal [RC] Per Unit Routine 01/15/19 21:09 Urinary Catheter Assessment [RC] ASDIRECTED 01/15/19 21:15 Insert Mcwilliams Catheter [Insert Urinary Catheter] [OM.PC] Q24H 01/15/19 21:58 Bladder Scan [RC] ASDIRECTED
== END 2019-01-15 22:20 | disposition home or self-care (01) ==
LOC: JD.ED 20:50
DX: T83.098A Other mechanical complication of other urinary catheter, initial encounter (principal); E78.00 Pure hypercholesterolemia, unspecified; Z79.899 Other long term (current) drug therapy; E66.9 Obesity, unspecified; Z68.30 Body mass index [BMI] 30.0-30.9, adult
CPT/HCPCS: 51700; 51798; 99282; 99283-25

== ENCOUNTER 2019-01-18 03:41 | Observation (INO) | payer MEDICARE, BC ==
[2019-01-18] MEDS ORDERED: Orphenadrine 100 MG Tab.ER PO STA (04:35)
--- NOTE | 2019-01-18 04:42 | EDM.PDOC ---
ED HPI GENERAL MEDICAL PROBLEM - General Chief Complaint: Back Pain or Injury Stated Complaint: back pain Time Seen by Provider: 01/18/19 03:51 Source of Information: Reports: Patient, Family (Son), RN Notes Reviewed History Limitations: Reports: Physical Impairment (Hard of hearing) - History of Present Illness INITIAL COMMENTS - FREE TEXT/NARRATIVE: The patient has a history of chronic urinary obstruction, requiring self- catheterization several times a day, which he has been doing for the past 6 years. He has a history of BPH, but it is his understanding that it is not BPH that is the cause of his urinary retention - the patient doesn't know why he has urinary retention. The patient was hospitalized in [place] for pyelonephritis at the early part of December. He was seen in this ED on 01/11/2019 with the inability to urinate. A CT scan of his abdomen and pelvis with oral and IV contrast showed a markedly thickened bladder wall, however, no evidence for pyelonephritis. A Mcwilliams catheter was placed, draining more than 700 mL of urine. He was treated with nitrofurantoin, which he is still on. He was seen back in this ED on 01/15/2019 with a clogged Mcwilliams catheter. A bladder scan found 1237 mL of retained urine. His bladder was irrigated and his Mcwilliams exchanged, with resolution of the obstruction. The patient now presents to the ED with bilateral flank pain. He has had the same flank pain since approximately late October 2018, but his pain has always been presumed to be related to either urinary obstruction or a urinary tract infection, especially since his symptoms improved after his urinary obstruction or infection was treated. At present, however, the patient's Mcwilliams catheter is draining well - a bladder scan performed this morning finds only 14 mL of retained urine - and the urine that is draining is clear. The patient has not had a recent fever, nausea, or vomiting, and, as above, he is still on nitrofurantoin, therefore a urinary tract infection is unlikely. The patient takes both [place] and tramadol for his back pain. The patient's PCP is Migdalia Sanchez. His Urologist is Dr. Wilson Nix, in [place], [place]. Lower Back Pain Score (Numeric/FACES): 9 - Related Data Allergies Allergy/AdvReac Type Severity Reaction Status Date / Time No Known Allergies Allergy Verified 01/15/19 21:03 Home Meds: Home Meds Ascorbate Calcium [Vitamin C] 500 mg PO DAILY 11/06/18 [History] Cholecalciferol (Vitamin D3) [Vitamin D] 5,000 units PO DAILY 11/06/18 [History] Cyanocobalamin (Vitamin B12) [Vitamin B12] 1,000 mcg PO DAILY 11/06/18 [History] Rosuvastatin Calcium 10 mg PO BEDTIME 11/06/18 [History] Hydrocodone/Acetaminophen [[place] 5-325 Tablet] 1 each PO Q6HR PRN 4 Days #16 tablet 01/11/19 [Rx] Magnesium Citrate 295 ml PO QAM 1 Days #1 solution 01/11/19 [Rx] Meloxicam [Mobic] 15 mg PO DAILY 01/11/19 [History] Naloxegol Oxalate [Movantik] 12.5 mg PO DAILY 01/11/19 [History] Nitrofurantoin Monohyd/M-Cryst [Macrobid 100 mg Capsule] 100 mg PO BID 10 Days # 20 capsule 01/11/19 [Rx] Polyethylene Glycol 3350 [MiraLAX] 17 gm PO DAILY PRN 01/11/19 [History] Sennosides/Docusate Sodium [Sennosides-Docusate Sodium] 8.6 - 50 mg PO BID 01/11 [History] Tamsulosin [Flomax] 0.4 mg PO BEDTIME 01/11/19 [History] Zolpidem Tartrate [Ambien] 5 mg PO BEDTIME PRN 01/11/19 [History] traMADol [Ultram] 50 mg PO Q6H PRN 01/11/19 [History] Past Medical History HEENT History: Reports: Impaired Vision Other HEENT History: wears glasses Cardiovascular History: Reports: High Cholesterol Genitourinary History: Reports: BPH, Retention, Urinary (straight-catheterizes) Musculoskeletal History: Reports: Osteoarthritis, Other (See Below) (Spinal stenosis) Neurological History: Reports: Neuropathy, Peripheral (Paresthesia to both lower extremities 2 spinal stenosis) Endocrine/Metabolic History: Reports: Obesity/BMI 30+ - Infectious Disease History Infectious Disease History: Reports: Chicken Pox, Rheumatic Fever (As a child) - Past Surgical History HEENT Surgical History: Reports: Cataract Surgery (Bilateral) GI Surgical History: Reports: Cholecystectomy, Colonoscopy (x 1), Hernia, Inguinal Neurological Surgical History: Reports: Lumbar Spine (laminectomy x 2) Musculoskeletal Surgical History: Reports: Carpal Tunnel (right only), Hip Replacement (left), Knee Replacement (right), Other (See Below) (Left 5th finger pinning) Social & Family History - Family History Family Medical History: Noncontributory - Tobacco Use Smoking Status *Q: Never Smoker - Caffeine Use Caffeine Use: Reports: Coffee - Alcohol Use Alcohol Use History: Yes Alcohol Use Frequency: Rarely - Recreational Drug Use Recreational Drug Use: No - Living Situation & Occupation Living situation: Reports: , with Spouse Occupation: Retired ED ROS GENERAL - Review of Systems Review Of Systems: ROS reveals no pertinent complaints other than HPI. ED EXAM,LOWER BACK PAIN/INJURY - Physical Exam Exam: See Below Exam Limited By: No Limitations General Appearance: Alert, WD/WN, No Apparent Distress Eye Exam: Bilateral Eye: EOMI, Normal Inspection Ears: Normal External Exam, Hearing Loss Nose: Normal Inspection Throat/Mouth: Normal Inspection, Normal Lips, Normal Voice, No Airway Compromise Head: Atraumatic, Normocephalic Neck: Normal Inspection, Full Range of Motion Respiratory/Chest: No Respiratory Distress, Lungs Clear, Normal Breath Sounds, No Accessory Muscle Use Cardiovascular: Normal Peripheral Pulses, Regular Rate, Rhythm, No Edema, No Gallop, No JVD, No Murmur, No Rub GI/Abdominal: Normal Bowel Sounds, Soft, Non-Tender, No Organomegaly, No Distention, No Abnormal Bruit, No Mass (Male) Exam: Deferred Rectal (Males) Exam: Deferred Back Exam: CVA Tenderness (L), CVA Tenderness (R), Decreased Range of Motion. No: Vertebral Tenderness Extremities: Normal Inspection, Normal Range of Motion, No Pedal Edema, Normal Capillary Refill Neurological: Alert, No Motor/Sensory Deficits, Oriented x 3 Psychiatric: Normal Affect Skin Exam: Warm, Dry, Intact, Normal Color, No Rash Course - Vital Signs Last Recorded V/S: Last Vital Signs Temp 36.7 C 01/18/19 03:54 Pulse 79 01/18/19 03:54 Resp 18 01/18/19 03:54 BP 138/65 01/18/19 03:54 Pulse Ox 99 01/18/19 03:54 - Orders/Labs/Meds Orders: Active Orders 24 hr Category Date Time Status Admission Status [Patient Status] [ADT] Routine ADT 01/18/19 06:16 Ordered Bladder Scan [RC] ASDIRECTED Care 01/18/19 04:01 Active CULTURE URINE [RM] Stat Lab 01/18/19 05:45 Ordered Labs: Laboratory Tests 01/18/19 Range/Units 04:45 WBC 7.62 (4.23-9.07) K/mm3 RBC 3.88 L (4.63-6.08) M/mm3 Hgb 9.8 L (13.7-17.5) gm/L Hct 31.5 L (40.1-51.0) % MCV 81.2 (79.0-92.2) fl MCH 25.3 L (25.7-32.2) pg MCHC 31.1 L (32.2-35.5) g/dl RDW Std Deviation 46.1 H (35.1-43.9) fL Plt Count 273 (163-337) K/mm3 MPV 8.4 L (9.4-12.3) fl Neutrophils % (Manual) 87 H (40-60) % Band Neutrophils % 0 (0-10) % Lymphocytes % (Manual) 12 L (20-40) % Atypical Lymphs % 0 % Monocytes % (Manual) 0 L (2-10) % Eosinophils % (Manual) 1 (0.8-7.0) % Basophils % (Manual) 0 L (0.2-1.2) Platelet Estimate Adequate RBC Morph Comment Normal Meds: Medications Discontinued Medications Generic Name Dose Route Start Last Admin Trade Name Freq PRN Reason Stop Dose Admin Orphenadrine Citrate 100 mg 01/18/19 04:35 01/18/19 04:44 Norflex PO 01/18/19 04:36 100 mg ONETIME STA Administration - Re-Assessments/Exams Free Text/Narrative Re-Assessment/Exam: 01/18/19 04:36 The cause of the patient's bilateral flank pain is not entirely clear. He has spinal stenosis, but his pain is in his flanks, not in his vertebral column. Since late October, it has been thought to be related to hydrostatic pressure related to outlet obstruction, or a UTI, or both. At present, however, the patient's Mcwilliams is draining well, with only 14 mL of urine in his bladder, the urine is clear, the patient is on nitrofurantoin, and the patient has no other signs suggestive of pyelonephritis, such as fever, nausea, vomiting, or malaise. For today's purposes, I have ordered a CBC and a urine culture. We won't have the urine culture results back for a few days, but if his WBC count is not elevated with a left shift, then pyelonephritis is not really on the differential (we discussed the option of obtaining a CT scan with IV contrast, looking for renal septae that would suggest pyelonephritis, but that approach is likely overkill). That would indicate that his bilateral flank pain is most likely musculoskeletal. One of the side effects of opioids is muscle spasm, therefore it is possible that the [place] and tramadol that the patient is taking for back pain may actually be contributing to his back pain. I suspect also that the patient's spinal arthritis and generalized lack of mobility is also a leading factor. The patient will be started on oral Norflex, and while we are waiting for the results of his CBC, the patient and his son will discuss the option of being placed into observation for physical therapy evaluation. 01/18/19 06:02 The patient's CBC is essentially normal, with no elevated WBC count. The patient would like to be placed into observation, if available. Case discussed with Dr. Hernandez at 06:00. He agreed to place the patient into observation. Departure - Departure Time of Disposition: 06:03 Disposition: Refer to Observation Condition: Fair Clinical Impression: Back muscle spasm - Discharge Information *PRESCRIPTION DRUG MONITORING PROGRAM REVIEWED*: Not Applicable *COPY OF PRESCRIPTION DRUG MONITORING REPORT IN PATIENT XIMENA: Not Applicable Referrals: Migdalia Sanchez PA-C [Primary Care Provider] - - My Orders Last 24 Hours: My Active Orders 01/18/19 04:01 Bladder Scan [RC] ASDIRECTED 01/18/19 05:45 CULTURE URINE [RM] Stat 01/18/19 06:16 Admission Status [Patient Status] [ADT] Routine - Assessment/Plan Last 24 Hours: My Active Orders 01/18/19 04:01 Bladder Scan [RC] ASDIRECTED 01/18/19 05:45 CULTURE URINE [RM] Stat 01/18/19 06:16 Admission Status [Patient Status] [ADT] Routine
[2019-01-18] MEDS ORDERED: Polyethylene Glycol 3350 Powder 17 GM Packet PO PRN (08:16)
[2019-01-18] MEDS ORDERED: HYDROCODONE PO PRN (08:16)
[2019-01-18] MEDS ORDERED: ACETAMINOPHEN PO PRN (08:16)
[2019-01-18] MEDS ORDERED: traMADol 50 MG Tab PO PRN (08:16)
[2019-01-18] MEDS ORDERED: ZOLPIDEM TARTRATE PO PRN (08:16)
--- NOTE | 2019-01-18 08:16 | PCM.HP ---
H&P History of Present Illness - General Date of Service: 01/18/19 Admit Problem/Dx: Admission Diagnosis/Problem Admission Diagnosis/Problem Back pain Source of Information: Patient, Old Records, Provider, RN Notes Reviewed History Limitations: Reports: Physical Impairment - History of Present Illness Initial Comments - Free Text/Narative: This is an 83 yo elderly white male with past medical hx/o Impaired Vision, HLD , BPH, Urinary Retention Requiring Self Catheterization, OA, Anemia, Spinal Stenosis, Paresthesia on bilateral lower extremity, Peripheral Neuropathy, and Obesity with BMI of 29.6 who comes in for evaluation of flank pain that has been going on since October of this year. He denies any numbness or tingling. No hx/o trauma or injury. He does however carries a hx/o urinary retention which which always been presumed to be related to his symptoms. He does self catheterization but he currently has urinary catheter put in ED upon admission. Patient denies any urinary issues. No fever or chills. He takes tramadol for his back pain. He also has [place] listed as an additional pain medication for pain control on his home medication. At the time of my examination, he seems to be better but could not get up on his own in bed. He did however receive muscle relaxant it ED prior to coming to the floor for further management. Patient is being admitted for MSK management of his back. He is full code. Lower Back Pain Score (Numeric/FACES): 9 - Related Data Allergies/Adverse Reactions: Allergies Allergy/AdvReac Type Severity Reaction Status Date / Time No Known Allergies Allergy Verified 01/18/19 07:09 Home Medications: Home Meds Ascorbate Calcium [Vitamin C] 500 mg PO DAILY 11/06/18 [History] Cholecalciferol (Vitamin D3) [Vitamin D] 5,000 units PO DAILY 11/06/18 [History] Cyanocobalamin (Vitamin B12) [Vitamin B12] 1,000 mcg PO DAILY 11/06/18 [History] Rosuvastatin Calcium 10 mg PO BEDTIME 11/06/18 [History] Hydrocodone/Acetaminophen [[place] 5-325 Tablet] 1 each PO Q6HR PRN 4 Days #16 tablet 01/11/19 [Rx] Magnesium Citrate 295 ml PO QAM 1 Days #1 solution 01/11/19 [Rx] Naloxegol Oxalate [Movantik] 12.5 mg PO DAILY 01/11/19 [History] Nitrofurantoin Monohyd/M-Cryst [Macrobid 100 mg Capsule] 100 mg PO BID 10 Days # 20 capsule 01/11/19 [Rx] Polyethylene Glycol 3350 [MiraLAX] 17 gm PO DAILY PRN 01/11/19 [History] Sennosides/Docusate Sodium [Sennosides-Docusate Sodium] 8.6 - 50 mg PO BID 01/11 [History] Tamsulosin [Flomax] 0.4 mg PO BEDTIME 01/11/19 [History] Zolpidem Tartrate [Ambien] 5 mg PO BEDTIME PRN 01/11/19 [History] traMADol [Ultram] 50 mg PO Q6H PRN 01/11/19 [History] Acetaminophen/HYDROcodone [[place] 325-5 MG] 1 tab PO Q6H PRN #12 tablet 01/19/19 [Rx] Naloxone HCl [Narcan] 4 mg NS ASDIRECTED #1 spray 01/19/19 [Rx] tiZANidine [Zanaflex] 4 mg PO Q6H PRN #30 tablet 01/19/19 [Rx] Past Medical History HEENT History: Reports: Impaired Vision Other HEENT History: wears glasses Cardiovascular History: Reports: High Cholesterol Other Cardiovascular History: rheumatic fever as child Respiratory History: Reports: Sleep Apnea Gastrointestinal History: Reports: Chronic Constipation Genitourinary History: Reports: BPH, Retention, Urinary Other Genitourinary History: straight cath's three times a day at home Musculoskeletal History: Reports: Osteoarthritis, Other (See Below) Neurological History: Reports: Neuropathy, Peripheral Other Neuro History: nerve damage Endocrine/Metabolic History: Reports: Obesity/BMI 30+ Hematologic History: Reports: B12 Deficiency Other Hematologic History: "blood poisioning" x2-patient states most likely from the catheter - Infectious Disease History Infectious Disease History: Reports: Chicken Pox, Rheumatic Fever - Past Surgical History HEENT Surgical History: Reports: Cataract Surgery Other Respiratory Surgeries/Procedures: wears cpap at night GI Surgical History: Reports: Cholecystectomy, Colonoscopy, Hernia, Inguinal Neurological Surgical History: Reports: Lumbar Spine Musculoskeletal Surgical History: Reports: Carpal Tunnel, Hip Replacement, Knee Replacement, Other (See Below) Other Musculoskeletal Surgeries/Procedures:: back pain Social & Family History - Family History Family Medical History: Noncontributory - Tobacco Use Smoking Status *Q: Former Smoker Used Tobacco, but Quit: Yes Month/Year Tobacco Last Used: 1983 - Caffeine Use Caffeine Use: Reports: Coffee, Soda, Tea - Recreational Drug Use Recreational Drug Use: No - Living Situation & Occupation Living situation: Reports: , with Spouse Occupation: Retired H&P Review of Systems - Review of Systems: Review Of Systems: See Below General: Reports: Weakness. Denies: Fever, Chills, Malaise, Fatigue HEENT: Reports: No Symptoms. Denies: Visual Changes Pulmonary: Denies: Shortness of Breath, Wheezing, Sputum Cardiovascular: Denies: Chest Pain, Dyspnea on Exertion, Edema, Lightheadedness Gastrointestinal: Denies: Abdominal Pain, Nausea, Vomiting Genitourinary: Reports: Retention, Flank Pain Musculoskeletal: Reports: Back Pain Skin: Denies: Cyanosis, Mottled, Pallor, Diaphoresis, Bruising, Erythema Psychiatric: Denies: Confusion, Depression, Anxiety, Agitation, Hallucinations Neurological: Reports: Pre-Existing Deficit, Difficulty Walking, Weakness, Gait Disturbance. Denies: Confusion Hematologic/Lymphatic: Reports: No Symptoms Immunologic: Reports: No Symptoms Exam - Exam Exam: See Below - Vital Signs Vital Signs: Last Vital Signs Temp 36.6 C 01/18/19 06:53 Pulse 78 01/18/19 06:53 Resp 16 01/18/19 06:53 BP 124/63 01/18/19 06:53 Pulse Ox 96 01/18/19 06:53 Weight: 104.644 kg - Exam General: Alert, Oriented, Cooperative HEENT: Conjunctiva Clear, EACs Clear, EOMI, Hearing Intact, Mucosa Moist & [place] , Nares Patent, Normal Nasal Septum, Posterior Pharynx Clear, Pupils Equal, Pupils Reactive Neck: Supple, Trachea Midline Lungs: Normal Respiratory Effort Cardiovascular: Regular Rate, Regular Rhythm GI/Abdominal Exam: Normal Bowel Sounds, Soft, Non-Tender, No Organomegaly, No Distention, No Abnormal Bruit, No Mass (Male) Exam: Other (indwelling varghese catheter) Rectal (Males) Exam: Deferred Back Exam: Normal Inspection, Decreased Range of Motion, Muscle Spasm, Paraspinal Tenderness, Vertebral Tenderness Extremities: Normal Inspection, No Pedal Edema, Normal Capillary Refill, Limited Range of Motion, Other (fingers stiff andf loss of motion; some joint sweeling and obvious deformity) Peripheral Pulses: 2+: Posterior Tibial (L), Posterior Tibial (R), Dorsalis Pedis (L), Dorsalis Pedis (R) Skin: Warm, Dry, Intact Neuro Extensive - Mental Status: Oriented x3, Normal Cognition, Memory Intact Neuro Extensive - Motor, Sensory, Reflexes: CN II-XII Intact (limited due to pain with movement), Abnormal Gait Psychiatric: Alert, Normal Affect, Normal Mood - Patient Data Lab Results Last 24 hrs: Laboratory Results - last 24 hr 01/18/19 Range/Units 04:45 WBC 7.62 (4.23-9.07) K/mm3 RBC 3.88 L (4.63-6.08) M/mm3 Hgb 9.8 L (13.7-17.5) gm/L Hct 31.5 L (40.1-51.0) % MCV 81.2 (79.0-92.2) fl MCH 25.3 L (25.7-32.2) pg MCHC 31.1 L (32.2-35.5) g/dl RDW Std Deviation 46.1 H (35.1-43.9) fL Plt Count 273 (163-337) K/mm3 MPV 8.4 L (9.4-12.3) fl Neutrophils % (Manual) 87 H (40-60) % Band Neutrophils % 0 (0-10) % Lymphocytes % (Manual) 12 L (20-40) % Atypical Lymphs % 0 % Monocytes % (Manual) 0 L (2-10) % Eosinophils % (Manual) 1 (0.8-7.0) % Basophils % (Manual) 0 L (0.2-1.2) Platelet Estimate Adequate RBC Morph Comment Normal Result Diagrams: 01/19/19 05:34 01/19/19 05:34 Problem List Initiated/Reviewed/Updated: Yes Orders Last 24hrs: Active Orders 24 hr Category Date Time Status Admission Status [Patient Status] [ADT] Routine ADT 01/18/19 06:16 Active Bladder Scan [RC] ASDIRECTED Care 01/18/19 04:01 Active CULTURE URINE [RM] Stat Lab 01/18/19 05:44 Received Assessment/Plan Comment:: Assessment/Plan: Acute: Back Pain - 2/2 MSK vs Muscle Spasm - Now improved after initial treatment in ED - Cannot r/o referred pain from issues - Unlikely UTI at this point since he is taking oral antibiotic - Pain medication, muscle relaxant and conservative management - PT/OT evaluation Chronic: Impaired Vision HLD BPH Urinary Retention Requiring Self Catheterization OA Anemia Spinal Stenosis Paresthesia on with lower extremity Peripheral Neuropathy Obesity with BMI of 29.6 Plan: Admit to OBS Resume Home Meds Fall Precautions Routine AM Labs PT/OT to assess and treat SW/CM for d/c planning Code status:DNR/DNI Spoke to his PCP and updated me about his HPI. Patient carries a hx/o significant urinary retention. He was referred to a urologist in [place] for initial evaluation of his urinary retention since his follow up appointment. He was told to do intermittent self cath. Unfortunately, he was not able to keep his appointment due to severe back pain. Patient does not want to be seen in [facility] due to bad experience he had about a few months. He did not want to go [place] either due to long appointment wait time. However patient tells me , he has a follow up appointment already scheduled on February 08 in [place] with the urologist he saw [place] in [place]
[2019-01-18] MEDS ORDERED: hydrALAZINE 20 MG/ML SDV IVPUSH PRN (08:20)
[2019-01-18] MEDS ORDERED: Ondansetron 4 MG/2 ML SDV IV PRN (08:20)
[2019-01-18] MEDS ORDERED: Albuterol/Ipratropium 3.0-0.5 MG/3 ML Neb Soln NEB PRN (08:20)
[2019-01-18] MEDS ORDERED: Metoprolol Tartrate 5 MG/5 ML SDV IVPUSH PRN (08:20)
[2019-01-18] MEDS ORDERED: LORazepam 2 MG/ML SDV IV PRN (08:20)
[2019-01-18] MEDS ORDERED: Acetaminophen 325 MG Tab PO PRN (08:20)
[2019-01-18] MEDS ORDERED: HYDROmorphone 1 MG/ML Syringe IVPUSH PRN (08:20)
[2019-01-18] MEDS: Cholecalciferol (Vitamin D3) 5,000 UNIT Tab PO SCH (09:22)
[2019-01-18] MEDS: Cyanocobalamin (Vitamin B12) 1,000 MCG Tab PO SCH (09:22)
[2019-01-18] MEDS: Ascorbic Acid 500 MG Tab PO SCH (09:22)
[2019-01-18] MEDS ORDERED: Zolpidem 5 MG Tab PO PRN (09:37)
[2019-01-18] MEDS: NALOXEGOL OXALATE 12.5 MG PO SCH (10:01)
[2019-01-18] MEDS: Acetaminophen/HYDROcodone 325-5 MG Tab PO PRN ×2 (10:01→20:36)
[2019-01-18] MEDS: MELOXICAM 15 MG PO SCH (10:01)
[2019-01-18] MEDS ORDERED: tiZANidine 4 MG Tab PO PRN (15:27)
[2019-01-18] MEDS: Nitrofurantoin Monohydrate/Macrocrystalline 100 MG Cap PO SCH ×2 (20:06→20:35)
[2019-01-18] MEDS ORDERED: Gabapentin 100 MG Cap PO SCH (21:00)
[2019-01-18] MEDS ORDERED: Tamsulosin 0.4 MG Cap.ER PO SCH (21:00)
[2019-01-19] MEDS ORDERED: Magnesium Citrate Solution 296 ML Bottle PO SCH (08:00)
[2019-01-19] MEDS: Acetaminophen/HYDROcodone 325-5 MG Tab PO PRN ×2 (08:18→13:59)
[2019-01-19] MEDS: Cyanocobalamin (Vitamin B12) 1,000 MCG Tab PO SCH (08:20)
[2019-01-19] MEDS: Cholecalciferol (Vitamin D3) 5,000 UNIT Tab PO SCH (08:20)
[2019-01-19] MEDS: Nitrofurantoin Monohydrate/Macrocrystalline 100 MG Cap PO SCH (08:20)
[2019-01-19] MEDS: Ascorbic Acid 500 MG Tab PO SCH (08:20)
[2019-01-19] MEDS: MELOXICAM 15 MG PO SCH (08:20)
[2019-01-19] MEDS: NALOXEGOL OXALATE 12.5 MG PO SCH (08:21)
[2019-01-19 13:49] VITALS: BP 133/79
--- NOTE | 2019-01-19 14:47 | PCM.DCSUM1 ---
Discharge Summary - Hospital Course HPI Initial Comments: This is an 83 yo elderly white male with past medical hx/o Impaired Vision, HLD , BPH, Urinary Retention Requiring Self Catheterization, OA, Anemia, Spinal Stenosis, Paresthesia on bilateral lower extremity, Peripheral Neuropathy, and Obesity with BMI of 29.6 who comes in for evaluation of flank pain that has been going on since October of this year. He denies any numbness or tingling. No hx/o trauma or injury. He does however carries a hx/o urinary retention which which always been presumed to be related to his symptoms. He does self catheterization but he currently has urinary catheter put in ED upon admission. Patient denies any urinary issues. No fever or chills. He takes tramadol for his back pain. He also has [place] listed as an additional pain medication for pain control on his home medication. At the time of my examination, he seems to be better but could not get up on his own in bed. He did however receive muscle relaxant it ED prior to coming to the floor for further management. Patient is being admitted for MSK management of his back. He is full code. Diagnosis: Stroke: No Modified [place] Scale: No Symptoms at All Modified Joanie Scale Score: 0 - Discharge Data Discharge Date: 01/19/19 Discharge Disposition: Home, Self-Care 01 Condition: Good - Discharge Diagnosis/Problem(s) (1) Urinary retention with incomplete bladder emptying SNOMED Code(s): 188817357 ICD Code: R33.9 - RETENTION OF URINE, UNSPECIFIED Status: Chronic (2) Back muscle spasm SNOMED Code(s): 224246760 ICD Code: M62.830 - MUSCLE SPASM OF BACK Status: Acute - Patient Summary/Data Operative Procedure(s) Performed: None Complications: None Consults: Consultations 01/18/19 08:22 Consult to Case Management/Junior Administrative Assistant [CONS] Routine Consult to Spiritual Care [CONS] Routine OT Evaluation and Treatment [CONS] Routine PT Evaluation and Treatment [CONS] Routine Labs Pending at D/C: None Recommended Follow-up Testing/Procedures: Urology in January as scheduled Planned Operative Procedure(s) after DC: None - Patient Instructions Diet: Usual Diet as Tolerated Activity: As Tolerated Driving: Do Not Drive Showering/Bathing: May Shower Notify Provider of: Fever, Increased Pain, Swelling and Redness, Nausea and/or Vomiting Other/Special Instructions: - Please take all new medications as directed. - Resume all home medications and routine home activities as tolerated per PT/OT. - Recommend you keep follow up with Urology as scheduled. - Absolutely avoid alcohol while taking these new medications! - Be careful operating any motor vehicles or driving. All these new medications can impair your level of alertness. - Call or follow up with your PCP for any questions or concerns after discharge. - Follow up with your PCP in 1 week. - Come back or seek immediate care should your symptoms persist or get worse - Discharge Plan *PRESCRIPTION DRUG MONITORING PROGRAM REVIEWED*: No *COPY OF PRESCRIPTION DRUG MONITORING REPORT IN PATIENT XIMENA: No Prescriptions/Med Rec: Acetaminophen/HYDROcodone [[place] 325-5 MG] 1 tab PO Q6H PRN #12 tablet PRN Reason: take for back pain Naloxone HCl [Narcan] 4 mg NS ASDIRECTED #1 spray tiZANidine [Zanaflex] 4 mg PO Q6H PRN #30 tablet PRN Reason: Muscle Spasm Home Medications: Home Meds Ascorbate Calcium [Vitamin C] 500 mg PO DAILY 11/06/18 [History] Cholecalciferol (Vitamin D3) [Vitamin D] 5,000 units PO DAILY 11/06/18 [History] Cyanocobalamin (Vitamin B12) [Vitamin B12] 1,000 mcg PO DAILY 11/06/18 [History] Rosuvastatin Calcium 10 mg PO BEDTIME 11/06/18 [History] Hydrocodone/Acetaminophen [[place] 5-325 Tablet] 1 each PO Q6HR PRN 4 Days #16 tablet 01/11/19 [Rx] Magnesium Citrate 295 ml PO QAM 1 Days #1 solution 01/11/19 [Rx] Naloxegol Oxalate [Movantik] 12.5 mg PO DAILY 01/11/19 [History] Nitrofurantoin Monohyd/M-Cryst [Macrobid 100 mg Capsule] 100 mg PO BID 10 Days # 20 capsule 01/11/19 [Rx] Polyethylene Glycol 3350 [MiraLAX] 17 gm PO DAILY PRN 01/11/19 [History] Sennosides/Docusate Sodium [Sennosides-Docusate Sodium] 8.6 - 50 mg PO BID 01/11 [History] Tamsulosin [Flomax] 0.4 mg PO BEDTIME 01/11/19 [History] Zolpidem Tartrate [Ambien] 5 mg PO BEDTIME PRN 01/11/19 [History] traMADol [Ultram] 50 mg PO Q6H PRN 01/11/19 [History] Acetaminophen/HYDROcodone [[place] 325-5 MG] 1 tab PO Q6H PRN #12 tablet 01/19/19 [Rx] Naloxone HCl [Narcan] 4 mg NS ASDIRECTED #1 spray 01/19/19 [Rx] tiZANidine [Zanaflex] 4 mg PO Q6H PRN #30 tablet 01/19/19 [Rx] Patient Handouts: Muscle Cramps and Spasms, [id number] Referrals: Migdalia Sanchez PA-C [Primary Care Provider] - 01/26/19 11:00 am (Please follow up with Migdalia Sanchez on January 26 at 1100. Please check in at 1045.) - Discharge Summary/Plan Comment DC Time >30 min.: Yes (45 mins) Discharge Summary/Plan Comment: Discharge to Home - General Info Date of Service: 01/19/19 Admission Dx/Problem (Free Text: Admission Diagnosis/Problem Admission Diagnosis/Problem Back pain Subjective Update: Follow Up Functional Status: Reports: Pain Controlled, Tolerating Diet, Ambulating, Urinating. Denies: New Symptoms - Review of Systems General: Denies: Fever, Weakness, Fatigue, Malaise, Chills HEENT: Reports: No Symptoms Pulmonary: Denies: Shortness of Breath Cardiovascular: Denies: Palpitations, Dyspnea on Exertion, Edema, Lightheadedness Gastrointestinal: Denies: Abdominal Pain, Nausea, Vomiting Genitourinary: Reports: No Symptoms Musculoskeletal: Denies: Neck Pain, Back Pain Skin: Denies: Cyanosis, Mottled, Pallor, Diaphoresis, Bruising Neurological: Denies: Confusion, Difficulty Walking, Weakness, Gait Disturbance Psychiatric: Denies: Depression, Mood Lability, Anxiety, Agitation, Hallucinations - Patient Data Vitals - Most Recent: Last Vital Signs Temp 36.9 C 01/19/19 12:10 Pulse 67 01/19/19 12:10 Resp 16 01/19/19 12:10 BP 133/79 01/19/19 12:10 Pulse Ox 100 01/19/19 12:10 Weight - Most Recent: 104.508 kg I&O - Last 24 hours: Intake & Output 01/18/19 01/19/19 01/19/19 22:59 06:59 14:59 Intake Total 750 300 580 Output Total 900 1100 Balance -150 -800 580 Lab Results - Last 24 hrs: Laboratory Results - last 24 hr 01/19/19 01/19/19 Range/Units 05:34 05:34 WBC 4.78 (4.23-9.07) K/mm3 RBC 3.70 L (4.63-6.08) M/mm3 Hgb 9.4 L (13.7-17.5) gm/L Hct 30.6 L (40.1-51.0) % MCV 82.7 (79.0-92.2) fl MCH 25.4 L (25.7-32.2) pg MCHC 30.7 L (32.2-35.5) g/dl RDW Std Deviation 48.7 H (35.1-43.9) fL Plt Count 273 (163-337) K/mm3 MPV 9.2 L (9.4-12.3) fl Neut % (Auto) 71.2 H (34.0-67.9) % Lymph % (Auto) 19.2 L (21.8-53.1) % [place] % (Auto) 6.5 (5.3-12.2) % Eos % (Auto) 2.5 (0.8-7.0) Baso % (Auto) 0.4 (0.1-1.2) % Neut # (Auto) 3.40 (1.78-5.38) K/mm3 Lymph # (Auto) 0.92 L (1.32-3.57) K/mm3 [place] # (Auto) 0.31 (0.30-0.82) K/mm3 Eos # (Auto) 0.12 (0.04-0.54) K/mm3 Baso # (Auto) 0.02 (0.01-0.08) K/mm3 Sodium 135 L (136-145) mEq/L Potassium 4.8 (3.5-5.1) mEq/L Chloride 101 (98-107) mEq/L Carbon Dioxide 26 (21-32) mEq/L Anion Gap 12.8 (5-15) BUN 22 H (7-18) mg/dL Creatinine 1.1 (0.7-1.3) mg/dL Est Cr Clr Drug Dosing 61.23 mL/min Estimated GFR (MDRD) > 60 (>60) mL/min BUN/Creatinine Ratio 20.0 H (14-18) Glucose 89 (83-115) mg/dL Calcium 9.2 (8.5-10.1) mg/dL Magnesium 2.2 (1.8-2.4) mg/dl Med Orders - Current: Current Medications Acetaminophen (Tylenol) 650 mg PO Q4H PRN PRN Reason: Pain (Mild 1-3)/fever Hydrocodone Bitart/Acetaminophen ([place] 325-5 Mg) 1 tab PO Q6H PRN PRN Reason: take for back pain Last Admin: 01/19/19 13:59 Dose: 1 tab Albuterol/Ipratropium (Duoneb 3.0-0.5 Mg/3 Ml) 3 ml NEB Q4H PRN PRN Reason: Shortness Of Breath/wheezing Ascorbic Acid (Vitamin C) 500 mg PO DAILY [facility] Last Admin: 01/19/19 08:20 Dose: 500 mg Cholecalciferol (Vitamin D3) 5,000 unit PO DAILY [facility] Last Admin: 01/19/19 08:20 Dose: 5,000 unit Cyanocobalamin (Vitamin B12) 1,000 mcg PO DAILY [facility] Last Admin: 01/19/19 08:20 Dose: 1,000 mcg Hydralazine HCl (Apresoline) 20 mg IVPUSH Q4H PRN PRN Reason: Hypertension Hydromorphone HCl (Dilaudid) 0.25 mg IVPUSH Q2H PRN PRN Reason: Pain (severe 7-10) Lorazepam (Ativan) 0.5 mg IV Q6H PRN PRN Reason: Anxiety Magnesium Citrate (Citrate Of Magnesia) 296 ml PO QAM [facility] Last Admin: 01/19/19 08:20 Dose: Not Given Metoprolol Tartrate (Lopressor) 5 mg IVPUSH Q4H PRN PRN Reason: Tachycardia Nitrofurantoin Macrocrystals (Macrobid) 100 mg PO BID [facility] Last Admin: 01/19/19 08:20 Dose: 100 mg Ondansetron HCl (Zofran) 4 mg IV Q6H PRN PRN Reason: Nausea/Vomiting Meloxicam 15 Mg Pt ('s Own Med) 0 each PO DAILY [facility] Last Admin: 01/19/19 08:20 Dose: Not Given Naloxegol Oxalate 12 .5 Mg Patients Own Med 0 each PO DAILY [facility] Last Admin: 01/19/19 08:21 Dose: Not Given Polyethylene Glycol (Miralax) 17 gm PO DAILY PRN PRN Reason: Constipation Potassium Chloride (Pharmacy To Dose - Potassium Replacement) 1 dose .XX ASDIRECTED PRN PRN Reason: PHARMACY TO MONITOR LEVELS Senna/Docusate Sodium (Senna Plus) 1 tab PO BID [facility] Last Admin: 01/19/19 08:20 Dose: 1 tab Tamsulosin HCl (Flomax) 0.4 mg PO BEDTIME [facility] Last Admin: 01/18/19 20:34 Dose: 0.4 mg Tizanidine HCl (Zanaflex) 4 mg PO Q6H PRN PRN Reason: Muscle Spasm Tramadol HCl (Ultram) 50 mg PO Q6H PRN PRN Reason: Pain Zolpidem Tartrate (Ambien) 5 mg PO BEDTIME PRN PRN Reason: INSOMNIA Discontinued Medications Gabapentin (Neurontin) 100 mg PO BID [facility] Last Admin: 01/18/19 20:35 Dose: 100 mg Orphenadrine Citrate (Norflex) 100 mg PO ONETIME STA Stop: 01/18/19 04:36 Last Admin: 01/18/19 04:44 Dose: 100 mg [place] 5mg-325mg Tablet Pt's Own Med 1 each PO Q6H PRN PRN Reason: take for back pain Zolpidem Tartrate (Ambien) 5 mg PO BEDTIME PRN PRN Reason: Insomnia - Exam General: Reports: Alert, Oriented, Cooperative, No Acute Distress HEENT: Reports: Pupils Equal, Pupils Reactive, EOMI, Mucous Membr. Moist/[place] Neck: Reports: Supple Lungs: Reports: Clear to Auscultation, Normal Respiratory Effort Cardiovascular: Reports: Regular Rate, Regular Rhythm GI/Abdominal Exam: Normal Bowel Sounds, Soft, Non-Tender, No Organomegaly, No Distention, No Abnormal Bruit, No Mass, Pelvis Stable (Male) Exam: Deferred Rectal (Males) Exam: Deferred Back Exam: Reports: Normal Inspection, Decreased Range of Motion, Muscle Spasm Extremities: Normal Inspection, Normal Range of Motion, Non-Tender, No Pedal Edema, Normal Capillary Refill, Other (arthritic joints on hands ) Skin: Reports: Warm, Dry, Intact Neurological: Reports: No New Focal Deficit. Denies: Normal Gait Psy/Mental Status: Reports: Alert, Normal Affect, Normal Mood
== END 2019-01-19 16:32 | disposition home or self-care (01) ==
LOC: JD.ED 03:41 → JD.MS 06:16
PROVIDERS: ADMIT Internal Medicine; ATTEND Internal Medicine
DX: N40.1 Benign prostatic hyperplasia with lower urinary tract symptoms (principal); R33.8 Other retention of urine; M62.830 Muscle spasm of back; M19.90 Unspecified osteoarthritis, unspecified site; E78.00 Pure hypercholesterolemia, unspecified; D64.9 Anemia, unspecified; G62.9 Polyneuropathy, unspecified; M48.00 Spinal stenosis, site unspecified; E66.9 Obesity, unspecified; Z68.29 Body mass index [BMI] 29.0-29.9, adult; Z87.891 Personal history of nicotine dependence; Z79.899 Other long term (current) drug therapy
CPT/HCPCS: 36415; 80048; 83735; 85007; 85025; 85027; 87086; 87088; 87186; 97116; 97162; 97166; 97530; 99284; A9270; G0378; 99283

== ENCOUNTER 2019-06-20 17:53 | Emergency (ER) | payer MEDICARE, BC ==
[2019-06-20 18:41] VITALS: BP 183/86; PULSE 94
[2019-06-20] MEDS ORDERED: Sodium Chloride 0.9% 1,000 ML IV ONE (19:20)
[2019-06-20] MEDS ORDERED: Sodium Chloride 0.9% 10 ML Syringe FLUSH PRN (19:21)
[2019-06-20] MEDS ORDERED: HYDROmorphone 0.5 MG/0.5 ML Syringe IVPUSH ONE ×2 (19:21→22:10)
[2019-06-20] MEDS ORDERED: Ondansetron 4 MG/2 ML SDV IVPUSH ONE (19:21)
--- NOTE | 2019-06-20 19:26 | EDM.PDOC ---
ED HPI GENERAL MEDICAL PROBLEM - General Chief Complaint: Back Pain or Injury Stated Complaint: BACK PAIN Time Seen by Provider: 06/20/19 19:02 Source of Information: Reports: Patient, Old Records History Limitations: Reports: No Limitations - History of Present Illness INITIAL COMMENTS - FREE TEXT/NARRATIVE: 83-year-old male presents for evaluation and treatment of back pain. Patient reports that he has chronic intermittent back pain. He reports pain to the bilateral back and radiation into his flanks. Today he took some tramadol. He states that he was hardly able to get off the couch and therefore did not take any additional medications for pain or any muscle relaxers. He has not taken any muscle relaxers which are prescribed him for the last 2 days. He states on the way here he felt nauseous. He do not appreciate any fevers or chills at home but he was found to have a temp of 101.4 upon arrival to the ER. No vomiting. He reports chronic numbness and tingling in his feet. He self catheters and has done so for the last 10 years. Feels that his urine is more concentrated than normal. Has not appreciated any blood in his urine. Primary care provider is Jacquie Lewis. States he's had numerous images of his back done. Last MRI we have on file was from September 2015. He does not know if he has seen neurosurgery or orthopedics for his back pain. Duration: Day(s): (3) Lower Back Pain Score (Numeric/FACES): 9 - Related Data Allergies Allergy/AdvReac Type Severity Reaction Status Date / Time No Known Allergies Allergy Verified 06/20/19 18:41 Home Meds: Home Meds Ascorbate Calcium [Vitamin C] 500 mg PO DAILY 11/06/18 [History] Cholecalciferol (Vitamin D3) [Vitamin D] 5,000 units PO DAILY 11/06/18 [History] Cyanocobalamin (Vitamin B12) [Vitamin B12] 1,000 mcg PO DAILY 11/06/18 [History] Rosuvastatin Calcium 10 mg PO BEDTIME 11/06/18 [History] Hydrocodone/Acetaminophen [[place] 5-325 Tablet] 1 each PO Q6HR PRN 4 Days #16 tablet 01/11/19 [Rx] Magnesium Citrate 295 ml PO QAM 1 Days #1 solution 01/11/19 [Rx] Naloxegol Oxalate [Movantik] 12.5 mg PO DAILY 01/11/19 [History] Nitrofurantoin Monohyd/M-Cryst [Macrobid 100 mg Capsule] 100 mg PO BID 10 Days # 20 capsule 01/11/19 [Rx] Polyethylene Glycol 3350 [MiraLAX] 17 gm PO DAILY PRN 01/11/19 [History] Sennosides/Docusate Sodium [Sennosides-Docusate Sodium] 8.6 - 50 mg PO BID 01/11 [History] Tamsulosin [Flomax] 0.4 mg PO BEDTIME 01/11/19 [History] Zolpidem Tartrate [Ambien] 5 mg PO BEDTIME PRN 01/11/19 [History] traMADol [Ultram] 50 mg PO Q6H PRN 01/11/19 [History] Acetaminophen/HYDROcodone [[place] 325-5 MG] 1 tab PO Q6H PRN #12 tablet 01/19/19 [Rx] Naloxone HCl [Narcan] 4 mg NS ASDIRECTED #1 spray 01/19/19 [Rx] tiZANidine [Zanaflex] 4 mg PO Q6H PRN #30 tablet 01/19/19 [Rx] Acetaminophen/HYDROcodone [[place] 325-5 MG] 1 tab PO Q4H PRN #7 tablet 06/20/19 [ Rx] Sulfamethoxazole/Trimethoprim [Bactrim Ds Tablet] 1 each PO BID #14 tablet 06/20 [Rx] Past Medical History HEENT History: Reports: Impaired Vision Other HEENT History: wears glasses Cardiovascular History: Reports: High Cholesterol Other Cardiovascular History: rheumatic fever as child Respiratory History: Reports: Sleep Apnea Gastrointestinal History: Reports: Chronic Constipation Genitourinary History: Reports: BPH, Retention, Urinary Other Genitourinary History: straight cath's three times a day at home Musculoskeletal History: Reports: Osteoarthritis, Other (See Below) Neurological History: Reports: Neuropathy, Peripheral Other Neuro History: nerve damage Endocrine/Metabolic History: Reports: Obesity/BMI 30+ Hematologic History: Reports: B12 Deficiency Other Hematologic History: "blood poisioning" x2-patient states most likely from the catheter - Infectious Disease History Infectious Disease History: Reports: Chicken Pox, Rheumatic Fever - Past Surgical History HEENT Surgical History: Reports: Cataract Surgery Other Respiratory Surgeries/Procedures: wears cpap at night GI Surgical History: Reports: Cholecystectomy, Colonoscopy, Hernia, Inguinal Neurological Surgical History: Reports: Lumbar Spine Musculoskeletal Surgical History: Reports: Carpal Tunnel, Hip Replacement, Knee Replacement, Other (See Below) Other Musculoskeletal Surgeries/Procedures:: back pain Social & Family History - Family History Family Medical History: Noncontributory - Caffeine Use Caffeine Use: Reports: Coffee, Soda, Tea - Living Situation & Occupation Living situation: Reports: , with Spouse Occupation: Retired ED ROS GENERAL - Review of Systems Review Of Systems: See Below Constitutional: Reports: Fever GI/Abdominal: Reports: Abdominal Pain (Chronic, no change ), Nausea. Denies: Vomiting : Reports: Flank Pain, Other (reports urine appears more concentrated; self caths at home for the last 10-12 years). Denies: Hematuria Musculoskeletal: Reports: Back Pain Neurological: Reports: Numbness (chronic in the feet), Tingling (chronic in the feet) ED EXAM,LOWER BACK PAIN/INJURY - Physical Exam Exam: See Below Exam Limited By: No Limitations General Appearance: Alert, WD/WN, Mild Distress, Obese Eye Exam: Bilateral Eye: Normal Inspection Ears: Normal External Exam Nose: Normal Inspection Throat/Mouth: Normal Inspection, Normal Voice, No Airway Compromise Respiratory/Chest: No Respiratory Distress, Lungs Clear, Normal Breath Sounds Cardiovascular: Normal Peripheral Pulses, Regular Rate, Rhythm, No Murmur GI/Abdominal: Normal Bowel Sounds, Soft, Non-Tender Back Exam: Normal Inspection, CVA Tenderness (L), CVA Tenderness (R), Paraspinal Tenderness (bilteral mid to lower back T10-L3). No: Vertebral Tenderness Extremities: Normal Inspection, Other (1+ nonpitting edema bilaterally) Neurological: Alert, Normal Mood/Affect, Normal Dorsiflexion, Normal Plantar Flexion Psychiatric: Normal Affect, Normal Mood Skin Exam: Warm, Dry, Normal Color Course - Vital Signs Last Recorded V/S: Last Vital Signs Temp 101.4 F H 06/20/19 18:34 Pulse 94 06/20/19 18:34 Resp 13 06/20/19 18:34 BP 183/86 H 06/20/19 18:34 Pulse Ox 95 06/20/19 18:34 - Orders/Labs/Meds Labs: Laboratory Tests 06/20/19 06/20/19 06/20/19 Range/Units 19:49 19:49 20:33 WBC 6.89 (4.23-9.07) K/mm3 RBC 4.14 L (4.63-6.08) M/mm3 Hgb 11.5 L D (13.7-17.5) gm/dl Hct 34.5 L (40.1-51.0) % MCV 83.3 (79.0-92.2) fl MCH 27.8 (25.7-32.2) pg MCHC 33.3 (32.2-35.5) g/dl RDW Std Deviation 45.9 H (35.1-43.9) fL Plt Count 165 (163-337) K/mm3 MPV 9.7 (9.4-12.3) fl Neutrophils % (Manual) 87 H (40-60) % Band Neutrophils % 0 (0-10) % Lymphocytes % (Manual) 7 L (20-40) % Atypical Lymphs % 0 % Monocytes % (Manual) 5 (2-10) % Eosinophils % (Manual) 1 (0.8-7.0) % Basophils % (Manual) 0 L (0.2-1.2) Platelet Estimate Adequate RBC Morph Comment Normal Sodium 137 (136-145) mEq/L Potassium 4.1 (3.5-5.1) mEq/L Chloride 102 (98-107) mEq/L Carbon Dioxide 23 (21-32) mEq/L Anion Gap 16.1 H (5-15) BUN 22 H (7-18) mg/dL Creatinine 0.8 (0.7-1.3) mg/dL Est Cr Clr Drug Dosing 70.06 mL/min Estimated GFR (MDRD) > 60 (>60) mL/min BUN/Creatinine Ratio 27.5 H (14-18) Glucose 114 (83-115) mg/dL Lactic Acid 0.9 (0.4-2.0) mmol/L Calcium 9.2 (8.5-10.1) mg/dL Magnesium 1.8 (1.8-2.4) mg/dl Total Bilirubin 0.8 (0.2-1.0) mg/dL AST 12 L (15-37) U/L ALT 14 L (16-63) U/L Alkaline Phosphatase 101 (46-116) U/L C-Reactive Protein 16.5 H* (<1.0) mg/dL Total Protein 7.0 (6.4-8.2) g/dl Albumin 3.3 L (3.4-5.0) g/dl Globulin 3.7 gm/dL Albumin/Globulin Ratio 0.9 L (1-2) Urine Color (Yellow) Urine Appearance (Clear) Urine pH (5.0-8.0) Ur Specific [place] (1.005-1.030) Urine Protein (Negative) Urine Glucose (UA) (Negative) Urine Ketones (Negative) Urine Occult Blood (Negative) Urine Nitrite (Negative) Urine Bilirubin (Negative) Urine Urobilinogen (0.2-1.0) Ur Leukocyte Esterase (Negative) Urine RBC (0-5) /hpf Urine WBC (0-5) /hpf Ur Epithelial Cells (0-5) /hpf Amorphous Sediment (NOT SEEN) /hpf Urine Bacteria (FEW) /hpf Urine Mucus (FEW) /hpf 06/20/19 Range/Units 21:09 WBC (4.23-9.07) K/mm3 RBC (4.63-6.08) M/mm3 Hgb (13.7-17.5) gm/dl Hct (40.1-51.0) % MCV (79.0-92.2) fl MCH (25.7-32.2) pg MCHC (32.2-35.5) g/dl RDW Std Deviation (35.1-43.9) fL Plt Count (163-337) K/mm3 MPV (9.4-12.3) fl Neutrophils % (Manual) (40-60) % Band Neutrophils % (0-10) % Lymphocytes % (Manual) (20-40) % Atypical Lymphs % % Monocytes % (Manual) (2-10) % Eosinophils % (Manual) (0.8-7.0) % Basophils % (Manual) (0.2-1.2) Platelet Estimate RBC Morph Comment Sodium (136-145) mEq/L Potassium (3.5-5.1) mEq/L Chloride (98-107) mEq/L Carbon Dioxide (21-32) mEq/L Anion Gap (5-15) BUN (7-18) mg/dL Creatinine (0.7-1.3) mg/dL Est Cr Clr Drug Dosing mL/min Estimated GFR (MDRD) (>60) mL/min BUN/Creatinine Ratio (14-18) Glucose (83-115) mg/dL Lactic Acid (0.4-2.0) mmol/L Calcium (8.5-10.1) mg/dL Magnesium (1.8-2.4) mg/dl Total Bilirubin (0.2-1.0) mg/dL AST (15-37) U/L ALT (16-63) U/L Alkaline Phosphatase (46-116) U/L C-Reactive Protein (<1.0) mg/dL Total Protein (6.4-8.2) g/dl Albumin (3.4-5.0) g/dl Globulin gm/dL Albumin/Globulin Ratio (1-2) Urine Color Yellow (Yellow) Urine Appearance Slt cloudy H (Clear) Urine pH 7.0 (5.0-8.0) Ur Specific [place] 1.025 (1.005-1.030) Urine Protein 1+ H (Negative) Urine Glucose (UA) Negative (Negative) Urine Ketones Negative (Negative) Urine Occult Blood Trace-intact H (Negative) Urine Nitrite Negative (Negative) Urine Bilirubin Negative (Negative) Urine Urobilinogen 1.0 (0.2-1.0) Ur Leukocyte Esterase Negative (Negative) Urine RBC 10-20 H (0-5) /hpf Urine WBC 0-5 (0-5) /hpf Ur Epithelial Cells 0-5 (0-5) /hpf Amorphous Sediment Few H (NOT SEEN) /hpf Urine Bacteria Many H (FEW) /hpf Urine Mucus Not seen (FEW) /hpf Meds: Medications Discontinued Medications Generic Name Dose Route Start Last Admin Trade Name Taiwo PRN Reason Stop Dose Admin Hydromorphone HCl 0.5 mg 06/20/19 19:21 06/20/19 19:41 Dilaudid IVPUSH 06/20/19 19:22 0.5 mg ONETIME ONE Administration Hydromorphone HCl 0.5 mg 06/20/19 22:10 06/20/19 22:40 Dilaudid IVPUSH 06/20/19 22:11 0.5 mg ONETIME ONE Administration Sodium Chloride 1,000 mls @ 999 mls/hr 06/20/19 19:20 06/20/19 19:35 Normal Saline IV 06/20/19 20:20 999 mls/hr ONETIME ONE Administration Ondansetron HCl 4 mg 06/20/19 19:21 06/20/19 19:41 Zofran IVPUSH 06/20/19 19:22 4 mg ONETIME ONE Administration Sodium Chloride 10 ml 06/20/19 19:21 06/20/19 19:42 Saline Flush FLUSH 10 ml ASDIRECTED PRN Administration Keep Vein Open Trimethoprim/Sulfamethoxazole 1 tab 06/20/19 22:10 06/20/19 22:41 Septra Ds PO 06/20/19 22:11 1 tab ONETIME ONE Administration - Re-Assessments/Exams Free Text/Narrative Re-Assessment/Exam: 06/20/19 22:07 I checked on the patient. He reports pain is improved after the Dilaudid. We'll treated for a urinary tract infection. Most recent urine culture. Most recent urine culture from 06-13-19 shows 70,000-80,000 mL per ml of Escherichia coli. Will start on bactrim based on most recent urine culture. Discussed disposition. Does not need hospitalization. However, he does live [facility]. Offered observation admission but the patient would like to go home. Will discharge home with close follow-up in the clinic. Discharge instructions as documented. Departure - Departure Time of Disposition: 22:17 Disposition: Home, Self-Care 01 Condition: Fair Clinical Impression: UTI (urinary tract infection), Back pain - Discharge Information *PRESCRIPTION DRUG MONITORING PROGRAM REVIEWED*: No *COPY OF PRESCRIPTION DRUG MONITORING REPORT IN PATIENT XIMENA: No Prescriptions: Acetaminophen/HYDROcodone [[place] 325-5 MG] 1 tab PO Q4H PRN #7 tablet PRN Reason: Pain Sulfamethoxazole/Trimethoprim [Bactrim Ds Tablet] 1 each PO BID #14 tablet Instructions: Urinary Tract Infection, Adult, [id number] Referrals: Migdalia Sanchez PA-C [Primary Care Provider] - Forms: ED Department Discharge Additional Instructions: you were given medication in the ER that can affect your ability to drive and operate machinery. Do not drive or operate machinery within 10 hours of taking prescription narcotic pain medication. take the bactrim as prescribed. 1 cap PO bid x 7 days. consider seeing urology if you have not seen one already for your frequent UTIs and prostate hypertrophy. Recommend Dr. Lau at [facility] in [place]. [place] 1 tab Po eery 4-6 hours prn pain. [place] is habit forming, take as few of these as needed to control your pain. Do not drive or operate machinery within 10 hours of taking norco. Follow-up with PCP tomorrow or for a recheck of your symptoms. Please return to the ER should your symptoms change or worsen.
[2019-06-20] MEDS ORDERED: Sulfamethoxazole/Trimethoprim 800-160 MG Tab PO ONE (22:10)
== END 2019-06-20 23:01 | disposition home or self-care (01) ==
LOC: JD.ED 17:53
DX: N39.0 Urinary tract infection, site not specified (principal); E66.9 Obesity, unspecified; M19.90 Unspecified osteoarthritis, unspecified site; E78.00 Pure hypercholesterolemia, unspecified; Z79.899 Other long term (current) drug therapy; Z90.49 Acquired absence of other specified parts of digestive tract; Z68.35 Body mass index [BMI] 35.0-35.9, adult
CPT/HCPCS: 36415; 80053; 81001; 83605; 83735; 85007; 85027; 86140; 87040; 87086; 87088; 87186; 96361; 96374; 96375; 96376; 99283; A9270; J1170; J2405; J7040

== ENCOUNTER 2021-01-31 21:09 | Emergency (ER) | payer MEDICARE, BC ==
[2021-01-31 21:26] VITALS: BP 135/61; PULSE 76
[2021-01-31] MEDS ORDERED: Sodium Chloride 0.9% 10 ML Syringe FLUSH PRN (21:36)
[2021-01-31] MEDS ORDERED: Linezolid 600 MG in Premix Bag 1 BAG IV ONE (21:36)
--- NOTE | 2021-01-31 21:53 | EDM.PDOC ---
ED HPI GENERAL MEDICAL PROBLEM - General Chief Complaint: Genitourinary Problem Stated Complaint: POSS INFECTION Time Seen by Provider: 01/31/21 21:37 Source of Information: Reports: Patient, Family (daughter), Provider (Melissa Sanchez), RN Notes Reviewed History Limitations: Reports: No Limitations - History of Present Illness INITIAL COMMENTS - FREE TEXT/NARRATIVE: Patient is an 85-year-old male who presents to the ED with a family member for evaluation of a urinary tract infection. Patient self catheterizes 2-3 times a day, and has been known to get multiple UTIs. Patient is seen by infectious disease doctor, Dr. Lambert. Mounika Sanchez did get a urine screen on the gentleman because he had a backache a few days ago, which is a tell for him when he has a urine infection. Culture did grow out Enterococcus faecalis, sensitive to linezolid, ampicillin, nitrofurantoin, penicillins, and vancomycin. Mounika states that she did give him a dose of Macrobid initially, but feels he needed a dose IV antibiotics, but because the patient gets sick pretty quick with UTIs. Notes that he has had multiple hospitalizations for urinary tract infections in [place]. Patient denies any fevers, but states he felt fairly chilled today and had to turn the heat up in his house. He has had no nausea or vomiting or diarrhea, he denies any dysuria, frequency or urgency. Patient does state that he did have a backache again a few days ago, but it seems to have gotten better. - Related Data Allergies Allergy/AdvReac Type Severity Reaction Status Date / Time No Known Allergies Allergy Verified 01/31/21 21:26 Home Meds: Home Meds Ascorbate Calcium [Vitamin C] 500 mg PO DAILY 11/06/18 [History] Cholecalciferol (Vitamin D3) [Vitamin D] 5,000 units PO DAILY 11/06/18 [History] Cyanocobalamin (Vitamin B12) [Vitamin B12] 1,000 mcg PO DAILY 11/06/18 [History] Rosuvastatin Calcium 10 mg PO BEDTIME 11/06/18 [History] Naloxegol Oxalate [Movantik] 12.5 mg PO DAILY 01/11/19 [History] Nitrofurantoin Monohyd/M-Cryst [Macrobid 100 mg Capsule] 100 mg PO BID 10 Days #20 capsule 01/11/19 [Rx] Sennosides/Docusate Sodium [Sennosides-Docusate Sodium] 8.6 - 50 mg PO BID 01/11/19 [History] Tamsulosin [Flomax] 0.4 mg PO BID 01/11/19 [History] Zolpidem Tartrate [Ambien] 5 mg PO BEDTIME PRN 01/11/19 [History] polyethylene glycoL 3350 [MiraLAX] 17 gm PO DAILY PRN 01/11/19 [History] traMADol [Ultram] 50 mg PO Q6H PRN 01/11/19 [History] tiZANidine [Zanaflex] 4 mg PO Q6H PRN #30 tablet 01/19/19 [Rx] Past Medical History HEENT History: Reports: Impaired Vision Other HEENT History: wears glasses Cardiovascular History: Reports: High Cholesterol Other Cardiovascular History: rheumatic fever as child Respiratory History: Reports: Sleep Apnea Gastrointestinal History: Reports: Chronic Constipation Genitourinary History: Reports: BPH, Retention, Urinary Other Genitourinary History: straight cath's TID at home Musculoskeletal History: Reports: Osteoarthritis Neurological History: Reports: Neuropathy, Peripheral Other Neuro History: nerve damage Endocrine/Metabolic History: Reports: Obesity/BMI 30+ Hematologic History: Reports: B12 Deficiency Other Hematologic History: sepsis x2-patient states most likely from the catheter - Infectious Disease History Infectious Disease History: Reports: Chicken Pox, Rheumatic Fever - Past Surgical History HEENT Surgical History: Reports: Cataract Surgery Other Respiratory Surgeries/Procedures: wears cpap at night GI Surgical History: Reports: Cholecystectomy, Colonoscopy, Hernia, Inguinal Other GI Surgeries/Procedures: hernia repair Neurological Surgical History: Reports: Lumbar Spine Other Neurological Surgeries/Procedures: several back surgeries Musculoskeletal Surgical History: Reports: Carpal Tunnel, Hip Replacement, Knee Replacement, Other (See Below) Other Musculoskeletal Surgeries/Procedures:: back pain Social & Family History - Family History Family Medical History: No Pertinent Family History - Tobacco Use Tobacco Use Status *Q: Former Tobacco User Used Tobacco, but Quit: Yes Month/Year Tobacco Last Used: 10/1968 - Caffeine Use Caffeine Use: Reports: Coffee - Recreational Drug Use Recreational Drug Use: No - Living Situation & Occupation Living situation: Reports: , with Spouse Occupation: Retired ED ROS GENERAL - Review of Systems Review Of Systems: Comprehensive ROS is negative, except as noted in HPI. ED EXAM, RENAL/ - Physical Exam Exam: See Below Exam Limited By: No Limitations General Appearance: Alert, WD/WN, No Apparent Distress Respiratory/Chest: No Respiratory Distress, Lungs Clear, Normal Breath Sounds, No Accessory Muscle Use, Chest Non-Tender Cardiovascular: Normal Peripheral Pulses, Regular Rate, Rhythm, No Edema GI/Abdominal: Normal Bowel Sounds, Soft, Non-Tender, No Distention, No Mass Extremities: Normal Inspection, Normal Capillary Refill Neurological: Alert, Oriented, Normal Cognition, No Motor/Sensory Deficits Psychiatric: Normal Affect, Normal Mood Skin Exam: Warm, Dry, Intact, Normal Color, No Rash Course - Vital Signs Last Recorded V/S: Last Vital Signs Temp 97.9 F 01/31/21 21: Pulse 76 01/31/21 21:22 Resp 20 01/31/21 21:22 BP 135/61 01/31/21 21:22 Pulse Ox 98 01/31/21 21:22 - Orders/Labs/Meds Orders: Active Orders 24 hr Category Date Time Status Peripheral IV Care [RC] . DIRECTED Care 01/31/21 21:36 Ordered Linezolid [Zyvox] 600 mg Med 01/31/21 21:36 Ordered Premix Bag 1 bag IV ONETIME Sodium Chloride 0.9% [Saline Flush] Med 01/31/21 21:36 Ordered 10 ml FLUSH ASDIRECTED PRN Peripheral IV Insertion Adult [OM.PC] Routine Oth 01/31/21 21:36 Ordered Medication Orders Linezolid 600 mg/ Premix 300 mls @ 300 mls/hr IV ONETIME ONE Stop: 01/31/21 22:35 Sodium Chloride (Sodium Chloride 0.9% 10 Ml Syringe) 10 ml FLUSH ASDIRECTED PRN PRN Reason: Keep Vein Open Meds: Medications Generic Name Dose Route Start Last Admin Trade Name Freq PRN Reason Stop Dose Admin Linezolid 600 mg/ Premix 300 mls @ 300 mls/hr 01/31/21 21:36 IV 01/31/21 22:35 ONETIME ONE Sodium Chloride 10 ml 01/31/21 21:36 Sodium Chloride 0.9% 10 Ml Syringe FLUSH ASDIRECTED PRN Keep Vein Open - Re-Assessments/Exams Free Text/Narrative Re-Assessment/Exam: 01/31/21 21:53 Patient presents to the ER for his possible ongoing UTI. Patient is displaying no other septic-like symptoms, fevers, lethargy, ETC. We will go ahead get IV started, give a dose of linezolid and discharged home on oral Augmentin and have him follow-up with Melissa on Wednesday. Departure - Departure Time of Disposition: 21:53 Disposition: Home, Self-Care 01 Condition: Good Clinical Impression: UTI, Urinary tract infectious disease - Discharge Information *PRESCRIPTION DRUG MONITORING PROGRAM REVIEWED*: No *COPY OF PRESCRIPTION DRUG MONITORING REPORT IN PATIENT XIMENA: No Instructions: Urinary Tract Infection, Adult, [id number] Referrals: Migdalia Sanchez PA-C [Primary Care Provider] - Additional Instructions: You have been evaluated in the ED for your urinary symptoms. You did get a dose of IV antibiotics while being in the ER tonight, and then have been switched to oral antibiotics for ongoing management. This medication was provided to you through [facility]. Please take as directed. 1 tablet 2 times a day until gone Please increase your oral fluid intake and try to stay adequately hydrated. Please follow-up with Melissa Sanchez on Wednesday, to make sure that your symptoms are getting better as expected. Please return to the ED if your symptoms change or worsen. Sepsis Event Note (ED) - Evaluation Sepsis Screening Result: No Definite Risk - Focused Exam Vital Signs: Vital Signs Temp Pulse Resp BP Pulse Ox 01/31/21 21:22 97.9 F 76 20 135/61 98 - My Orders Last 24 Hours: My Active Orders 01/31/21 21:36 Peripheral IV Care [RC] . DIRECTED Linezolid [Zyvox] 600 mg Premix Bag 1 bag IV ONETIME Sodium Chloride 0.9% [Saline Flush] 10 ml FLUSH ASDIRECTED PRN Peripheral IV Insertion Adult [OM.PC] Routine - Assessment/Plan Last 24 Hours: My Active Orders 01/31/21 21:36 Peripheral IV Care [RC] . DIRECTED Linezolid [Zyvox] 600 mg Premix Bag 1 bag IV ONETIME Sodium Chloride 0.9% [Saline Flush] 10 ml FLUSH ASDIRECTED PRN Peripheral IV Insertion Adult [OM.PC] Routine
== END 2021-01-31 23:15 | disposition home or self-care (01) ==
LOC: JD.ED 21:09
DX: N39.0 Urinary tract infection, site not specified (principal); E78.00 Pure hypercholesterolemia, unspecified; N40.1 Benign prostatic hyperplasia with lower urinary tract symptoms; R33.8 Other retention of urine; E66.9 Obesity, unspecified; Z68.34 Body mass index [BMI] 34.0-34.9, adult; Z87.891 Personal history of nicotine dependence; Z79.899 Other long term (current) drug therapy
CPT/HCPCS: 96365; 99283; J2020

== ENCOUNTER 2023-10-18 16:54 | Inpatient (IN) | payer MEDICARE, BC ==
[2023-10-18] MEDS ORDERED: Sodium Chloride 0.9% 10 ML Syringe FLUSH PRN (17:46)
[2023-10-18 18:39] LABS: BASOPHILS PERCENT AUTO 0.2 % (0.0-1.0); EOSINOPHILS ABSOLUTE AUTO 0.1 K/mm3 (0.0-0.4); EOSINOPHILS PERCENT AUTO 1.1 % (0.0-6.0); HEMATOCRIT 37.5 % (42.0-52.0); HEMOGLOBIN 12.6 gm/dl (14.0-18.0); IMMATURE GRAN ABSOLUTE AUTO 0.01 K/mm3 (0.00-0.05); IMMATURE GRAN PERCENT AUTO 0.2 % (0.0-0.4); LYMPHOCYTES ABSOLUTE AUTO 0.7 K/mm3 (1.0-4.8); LYMPHOCYTES PERCENT AUTO 15.6 % (24.0-44.0); MEAN CORPUSCULAR HEMOGLOBIN 29.4 pg (28.0-32.0); MEAN CORPUSCULAR HGB CONC 33.6 g/dl (32.0-36.0); MEAN CORPUSCULAR VOLUME 87.6 fl (83.0-99.0); MEAN PLATELET VOLUME 8.7 fl (9.4-12.4); MONOCYTES ABSOLUTE AUTO 0.4 K/mm3 (0.0-0.8); MONOCYTES PERCENT AUTO 7.7 % (0.0-8.0); NEUTROPHILS ABSOLUTE AUTO 3.4 K/mm3 (1.8-7.7); NEUTROPHILS PERCENT AUTO 75.2 % (41.0-71.0); PLATELET COUNT,PLT 189 K/mm3 (150-400); RED BLOOD CELL COUNT 4.28 M/mm3 (4.52-5.90); WHITE BLOOD CELL COUNT,WBC 4.54 K/mm3 (3.9-11.3)
[2023-10-18 19:00] LABS: A/G RATIO 0.9 (1-2); ALBUMIN 3.3 g/dl (3.4-5.0); ANION GAP 11.4 (5-15); BILIRUBIN TOTAL 0.5 mg/dL (0.2-1.0); BUN/CREATININE RATIO 18.2 (14-18); CALCIUM 9.1 mg/dL (8.5-10.1); CREATININE 1.1 mg/dL (0.7-1.3); EST CRCL DRUG DOSING (CG) 57.08 mL/min; POTASSIUM,K 4.4 mEq/L (3.5-5.1); PROTEIN TOTAL,TP 6.9 g/dl (6.4-8.2)
[2023-10-18] MEDS: Iopamidol 612 MG/ML 100 ML Bottle IVPUSH ONE (19:18)
[2023-10-18] MEDS: Sodium Chloride 0.9% 10 ML Syringe FLUSH ONE (19:18)
[2023-10-18 19:53] LABS: APPEARANCE,URINE CLOUDY (Clear); BILIRUBIN,URINE NEGATIVE (Negative); COLOR,URINE YELLOW (Yellow); GLUCOSE,URINE NEGATIVE (Negative); KETONES,URINE TRACE (Negative); LEUKOCYTE ESTERASE,URINE 1+ (Negative); NITRITE,URINE NEGATIVE (Negative); OCCULT BLOOD,URINE 1+ (Negative); PH,URINE 8.5 (5.0-8.0); PROTEIN,URINE 1+ (Negative); UROBILINOGEN,URINE 0.2 (0.2-1.0)
[2023-10-18 20:19] LABS: BACTERIA,URINE FEW /hpf (FEW); MUCUS,URINE FEW /hpf (FEW); SQUAMOUS EPITHELIAL CELLS,UR 0-5 /hpf (0-5)
[2023-10-18] MEDS: cefTRIAXone 1 GM in Sodium Chloride 0.9% 100 ML IV ONE ×2 (21:32→23:11)
[2023-10-18] MEDS ORDERED: cefTRIAXone 2 GM in Sodium Chloride 0.9% 100 ML IV SCH (22:00)
[2023-10-18] MEDS: Sodium Chloride 0.9% 1,000 ML IV SCH (23:11)
[2023-10-19] MEDS: Benzocaine 20% Topical Spray UD MUCMEM ONE (03:01)
[2023-10-19 05:28] LABS: BASOPHILS PERCENT AUTO 0.2 % (0.0-1.0); EOSINOPHILS ABSOLUTE AUTO 0.1 K/mm3 (0.0-0.4); EOSINOPHILS PERCENT AUTO 3.1 % (0.0-6.0); HEMATOCRIT 35.3 % (42.0-52.0); HEMOGLOBIN 11.9 gm/dl (14.0-18.0); IMMATURE GRAN ABSOLUTE AUTO 0.02 K/mm3 (0.00-0.05); IMMATURE GRAN PERCENT AUTO 0.5 % (0.0-0.4); LYMPHOCYTES ABSOLUTE AUTO 0.7 K/mm3 (1.0-4.8); LYMPHOCYTES PERCENT AUTO 16.7 % (24.0-44.0); MEAN CORPUSCULAR HEMOGLOBIN 28.6 pg (28.0-32.0); MEAN CORPUSCULAR HGB CONC 33.7 g/dl (32.0-36.0); MEAN CORPUSCULAR VOLUME 84.9 fl (83.0-99.0); MEAN PLATELET VOLUME 9.1 fl (9.4-12.4); MONOCYTES ABSOLUTE AUTO 0.3 K/mm3 (0.0-0.8); MONOCYTES PERCENT AUTO 6.9 % (0.0-8.0); NEUTROPHILS PERCENT AUTO 72.6 % (41.0-71.0); PLATELET COUNT,PLT 184 K/mm3 (150-400); RED BLOOD CELL COUNT 4.16 M/mm3 (4.52-5.90); WHITE BLOOD CELL COUNT,WBC 4.19 K/mm3 (3.9-11.3)
[2023-10-19 06:07] LABS: A/G RATIO 0.8 (1-2); ALBUMIN 3.1 g/dl (3.4-5.0); ANION GAP 9.7 (5-15); BILIRUBIN TOTAL 0.5 mg/dL (0.2-1.0); CALCIUM 8.7 mg/dL (8.5-10.1); EST CRCL DRUG DOSING (CG) 62.79 mL/min; POTASSIUM,K 3.7 mEq/L (3.5-5.1); PROTEIN TOTAL,TP 6.8 g/dl (6.4-8.2)
[2023-10-19] MEDS: Enoxaparin 40 MG/0.4 ML Syringe SUBCUT SCH (08:46)
[2023-10-19] MEDS ORDERED: Bupivacaine 0.5% 30 ML SDV ONE (09:36)
[2023-10-19] MEDS ORDERED: EPINEPHrine 1 MG/ML SDV ONE (09:36)
[2023-10-19] MEDS ORDERED: Lidocaine 1% 50 ML MDV ONE (10:55)
[2023-10-19] MEDS ORDERED: Lidocaine 1% 30 ML SDV ONE (10:56)
[2023-10-19 13:41] LABS: CHOLESTEROL HDL 60 mg/dL (40-59); CHOLESTEROL LDL DIRECT 73 mg/dL (<100); CHOLESTEROL TOTAL 144 mg/dL (<200); TRIGLYCERIDES 60 mg/dL (<150)
[2023-10-19 13:58] LABS: HEMOGLOBIN A1C 5.4 %
[2023-10-19] MEDS: cefTRIAXone 2 GM in Sodium Chloride 0.9% 100 ML IV SCH (20:30)
[2023-10-19] MEDS: Melatonin 3 MG Tab PO PRN (21:15)
[2023-10-19] MEDS: cefTRIAXone 2 GM Vial ONE (22:17)
[2023-10-20] MEDS: Ondansetron 4 MG/2 ML SDV IVPUSH PRN (01:56)
[2023-10-20] MEDS: Morphine 2 MG/ML SYRINGE IVPUSH PRN (01:58)
[2023-10-20 05:52] LABS: A/G RATIO 0.9 (1-2); ALBUMIN 3.1 g/dl (3.4-5.0); ANION GAP 14.4 (5-15); BILIRUBIN TOTAL 0.7 mg/dL (0.2-1.0); BUN/CREATININE RATIO 16.4 (14-18); CALCIUM 8.8 mg/dL (8.5-10.1); CREATININE 1.1 mg/dL (0.7-1.3); EST CRCL DRUG DOSING (CG) 57.08 mL/min; POTASSIUM,K 3.4 mEq/L (3.5-5.1); PROTEIN TOTAL,TP 6.5 g/dl (6.4-8.2)
[2023-10-20 05:53] LABS: BASOPHILS PERCENT AUTO 0.3 % (0.0-1.0); EOSINOPHILS PERCENT AUTO 0.6 % (0.0-6.0); HEMATOCRIT 37.1 % (42.0-52.0); HEMOGLOBIN 12.6 gm/dl (14.0-18.0); IMMATURE GRAN ABSOLUTE AUTO 0.01 K/mm3 (0.00-0.05); IMMATURE GRAN PERCENT AUTO 0.2 % (0.0-0.4); LYMPHOCYTES ABSOLUTE AUTO 0.7 K/mm3 (1.0-4.8); LYMPHOCYTES PERCENT AUTO 11.3 % (24.0-44.0); MEAN CORPUSCULAR HEMOGLOBIN 29.7 pg (28.0-32.0); MEAN CORPUSCULAR VOLUME 87.5 fl (83.0-99.0); MEAN PLATELET VOLUME 8.9 fl (9.4-12.4); MONOCYTES ABSOLUTE AUTO 0.4 K/mm3 (0.0-0.8); MONOCYTES PERCENT AUTO 6.9 % (0.0-8.0); NEUTROPHILS ABSOLUTE AUTO 5.1 K/mm3 (1.8-7.7); NEUTROPHILS PERCENT AUTO 80.7 % (41.0-71.0); PLATELET COUNT,PLT 189 K/mm3 (150-400); RED BLOOD CELL COUNT 4.24 M/mm3 (4.52-5.90); WHITE BLOOD CELL COUNT,WBC 6.26 K/mm3 (3.9-11.3)
[2023-10-20] MEDS: Potassium Chloride 10 MEQ in Premix Bag 1 BAG IV SCH (08:32)
[2023-10-20] MEDS: Diatrizoate Meglumine/Diatrizoate Sodium 37% 120 ML Bottle PO ONE (10:40)
[2023-10-20] MEDS: Potassium Chloride 10 MEQ in Premix Bag 1 BAG IV ONE (13:20)
[2023-10-21 05:29] LABS: A/G RATIO 0.9 (1-2); ALBUMIN 2.8 g/dl (3.4-5.0); ANION GAP 12.6 (5-15); BILIRUBIN TOTAL 0.6 mg/dL (0.2-1.0); CALCIUM 8.4 mg/dL (8.5-10.1); EST CRCL DRUG DOSING (CG) 62.79 mL/min; POTASSIUM,K 3.6 mEq/L (3.5-5.1); PROTEIN TOTAL,TP 5.9 g/dl (6.4-8.2)
[2023-10-21 06:07] LABS: BASOPHILS PERCENT AUTO 0.5 % (0.0-1.0); EOSINOPHILS ABSOLUTE AUTO 0.2 K/mm3 (0.0-0.4); EOSINOPHILS PERCENT AUTO 2.9 % (0.0-6.0); HEMATOCRIT 35.2 % (42.0-52.0); HEMOGLOBIN 11.7 gm/dl (14.0-18.0); IMMATURE GRAN ABSOLUTE AUTO 0.02 K/mm3 (0.00-0.05); IMMATURE GRAN PERCENT AUTO 0.4 % (0.0-0.4); LYMPHOCYTES ABSOLUTE AUTO 0.7 K/mm3 (1.0-4.8); LYMPHOCYTES PERCENT AUTO 13.2 % (24.0-44.0); MEAN CORPUSCULAR HEMOGLOBIN 29.4 pg (28.0-32.0); MEAN CORPUSCULAR HGB CONC 33.2 g/dl (32.0-36.0); MEAN CORPUSCULAR VOLUME 88.4 fl (83.0-99.0); MONOCYTES ABSOLUTE AUTO 0.4 K/mm3 (0.0-0.8); MONOCYTES PERCENT AUTO 7.6 % (0.0-8.0); NEUTROPHILS ABSOLUTE AUTO 4.2 K/mm3 (1.8-7.7); NEUTROPHILS PERCENT AUTO 75.4 % (41.0-71.0); PLATELET COUNT,PLT 172 K/mm3 (150-400); RED BLOOD CELL COUNT 3.98 M/mm3 (4.52-5.90); WHITE BLOOD CELL COUNT,WBC 5.51 K/mm3 (3.9-11.3)
[2023-10-21] MEDS: traMADol 50 MG Tab PO ONE (10:24)
[2023-10-21] MEDS: Hydrochlorothiazide 12.5 MG Cap PO SCH (11:40)
[2023-10-21] MEDS: Tamsulosin 0.4 MG Cap.ER PO SCH (11:40)
[2023-10-21 16:33] VITALS: BP 137/68; PULSE 75
== END 2023-10-21 16:20 | disposition home or self-care (01) | DRG 395 ==
LOC: JD.ED 16:54 → JD.MS 21:50
PROVIDERS: ADMIT Student in an Organized Health Care Education/Training Program; ATTEND Student in an Organized Health Care Education/Training Program
PROC: 0D9670Z Drainage of Stomach with Drainage Device, Via Natural or Artificial Opening (ICD-10-PCS; principal; 2023-10-18)
DX: K42.0 Umbilical hernia with obstruction, without gangrene (principal); K56.699 Other intestinal obstruction unspecified as to partial versus complete obstruction; G47.30 Sleep apnea, unspecified; N18.2 Chronic kidney disease, stage 2 (mild); K59.09 Other constipation; N40.0 Benign prostatic hyperplasia without lower urinary tract symptoms; I35.0 Nonrheumatic aortic (valve) stenosis; M19.90 Unspecified osteoarthritis, unspecified site; E78.00 Pure hypercholesterolemia, unspecified; G62.9 Polyneuropathy, unspecified; Z96.649 Presence of unspecified artificial hip joint; Z96.659 Presence of unspecified artificial knee joint; E66.9 Obesity, unspecified; Z68.34 Body mass index [BMI] 34.0-34.9, adult; Z98.49 Cataract extraction status, unspecified eye; Z68.36 Body mass index [BMI] 36.0-36.9, adult; Z98.890 Other specified postprocedural states; Z87.891 Personal history of nicotine dependence; Z79.899 Other long term (current) drug therapy; Z90.49 Acquired absence of other specified parts of digestive tract
CPT/HCPCS: 36415; 43752; 74177; 80053; 81001; 83690; 85025; 96365; 99285; C1758; J0696; J3490 ×2; Q9967; 51701; 71045; 71045-26; 74250; 74250-26; 80061; 83036; 84484; 93005; 93307; 99222; 99231; 99284; A9270-GY; J0171; J0665; J1650; J2001; J2270; J2405; J3480; J7030

== ENCOUNTER 2024-06-06 20:37 | Emergency (ER) | payer MEDICARE, BC ==
[2024-06-06 21:15] LABS: BASOPHILS PERCENT AUTO 0.3 % (0.0-1.0); EOSINOPHILS ABSOLUTE AUTO 0.1 K/mm3 (0.0-0.4); HEMATOCRIT 35.8 % (42.0-52.0); HEMOGLOBIN 11.9 gm/dl (14.0-18.0); IMMATURE GRAN ABSOLUTE AUTO 0.02 K/mm3 (0.00-0.05); IMMATURE GRAN PERCENT AUTO 0.3 % (0.0-0.4); LYMPHOCYTES ABSOLUTE AUTO 0.9 K/mm3 (1.0-4.8); LYMPHOCYTES PERCENT AUTO 14.4 % (24.0-44.0); MEAN CORPUSCULAR HGB CONC 33.2 g/dl (32.0-36.0); MEAN CORPUSCULAR VOLUME 84.2 fl (83.0-99.0); MEAN PLATELET VOLUME 8.9 fl (9.4-12.4); MONOCYTES ABSOLUTE AUTO 0.4 K/mm3 (0.0-0.8); MONOCYTES PERCENT AUTO 6.8 % (0.0-8.0); NEUTROPHILS ABSOLUTE AUTO 4.6 K/mm3 (1.8-7.7); NEUTROPHILS PERCENT AUTO 77.2 % (41.0-71.0); PLATELET COUNT,PLT 183 K/mm3 (150-400); RED BLOOD CELL COUNT 4.25 M/mm3 (4.52-5.90)
[2024-06-06 21:39] LABS: A/G RATIO 1.2 (1-2); ALBUMIN 3.9 g/dl (3.4-5.0); ANION GAP 12.5 (5-15); BILIRUBIN TOTAL 0.6 mg/dL (0.2-1.0); BUN/CREATININE RATIO 12.8 (14-18); CALCIUM 9.6 mg/dL (8.5-10.1); CREATININE 1.8 mg/dL (0.7-1.3); EST CRCL DRUG DOSING (CG) 36.17 mL/min; POTASSIUM,K 4.5 mEq/L (3.5-5.1); PROTEIN TOTAL,TP 7.2 g/dl (6.4-8.2)
[2024-06-06 22:02] LABS: APPEARANCE,URINE SLT CLOUDY (Clear); BILIRUBIN,URINE NEGATIVE (Negative); COLOR,URINE YELLOW (Yellow); GLUCOSE,URINE NEGATIVE (Negative); KETONES,URINE TRACE (Negative); LEUKOCYTE ESTERASE,URINE 2+ (Negative); NITRITE,URINE NEGATIVE (Negative); OCCULT BLOOD,URINE 2+ (Negative); PROTEIN,URINE 2+ (Negative); UROBILINOGEN,URINE 0.2 (0.2-1.0)
[2024-06-06 22:18] LABS: BACTERIA,URINE FEW /hpf (FEW); MUCUS,URINE FEW /hpf (FEW); RBC,URINE >100 /hpf (0-5); WBC,URINE 75-100 /hpf (0-5)
[2024-06-06] MEDS ORDERED: Sodium Chloride 0.9% 10 ML Syringe FLUSH PRN (22:42)
[2024-06-06] MEDS: Sodium Chloride 0.9% 45 ML IV SCH (23:03)
[2024-06-06] MEDS: Iopamidol 612 MG/ML 30 ML SDV IV ONE (23:03)
[2024-06-06] MEDS: Iopamidol 612 MG/ML 100 ML Bottle IVPUSH ONE (23:03)
[2024-06-06] MEDS: Sodium Chloride 0.9% 10 ML Syringe FLUSH PRN (23:03)
[2024-06-07 01:51] VITALS: BP 158/76; PULSE 71
== END 2024-06-07 01:34 | disposition home or self-care (01) ==
LOC: JD.ED 20:37
DX: K42.0 Umbilical hernia with obstruction, without gangrene (principal); E78.00 Pure hypercholesterolemia, unspecified; E66.9 Obesity, unspecified; Z79.899 Other long term (current) drug therapy
CPT/HCPCS: 36415; 74177; 80053; 81001; 83605; 85025; 87086; 99284; C1758; J3490; Q9967; 99283

== ENCOUNTER 2024-07-23 19:14 | Emergency (ER) | payer MEDICARE, BC ==
[2024-07-23 20:17] LABS: BASOPHILS PERCENT AUTO 0.3 % (0.0-1.0); EOSINOPHILS ABSOLUTE AUTO 0.1 K/mm3 (0.0-0.4); HEMOGLOBIN 12.6 gm/dl (14.0-18.0); IMMATURE GRAN ABSOLUTE AUTO 0.01 K/mm3 (0.00-0.05); IMMATURE GRAN PERCENT AUTO 0.2 % (0.0-0.4); LYMPHOCYTES ABSOLUTE AUTO 0.9 K/mm3 (1.0-4.8); LYMPHOCYTES PERCENT AUTO 15.6 % (24.0-44.0); MEAN CORPUSCULAR HEMOGLOBIN 28.5 pg (28.0-32.0); MEAN CORPUSCULAR HGB CONC 33.2 g/dl (32.0-36.0); MEAN PLATELET VOLUME 9.5 fl (9.4-12.4); MONOCYTES ABSOLUTE AUTO 0.4 K/mm3 (0.0-0.8); MONOCYTES PERCENT AUTO 7.3 % (0.0-8.0); NEUTROPHILS ABSOLUTE AUTO 4.5 K/mm3 (1.8-7.7); NEUTROPHILS PERCENT AUTO 74.6 % (41.0-71.0); PLATELET COUNT,PLT 185 K/mm3 (150-400); RED BLOOD CELL COUNT 4.42 M/mm3 (4.52-5.90); WHITE BLOOD CELL COUNT,WBC 6.03 K/mm3 (3.9-11.3)
[2024-07-23 20:28] LABS: A/G RATIO 1.1 (1-2); ALBUMIN 3.9 g/dl (3.4-5.0); ANION GAP 16.6 (5-15); BILIRUBIN TOTAL 0.8 mg/dL (0.2-1.0); BUN/CREATININE RATIO 14.4 (14-18); CREATININE 1.6 mg/dL (0.7-1.3); EST CRCL DRUG DOSING (CG) 37.45 mL/min; POTASSIUM,K 4.6 mEq/L (3.5-5.1); PROTEIN TOTAL,TP 7.4 g/dl (6.4-8.2)
[2024-07-23] MEDS: Sodium Chloride 0.9% 500 ML IV ONE (20:29)
[2024-07-23] MEDS: Sodium Chloride 0.9% 10 ML Syringe FLUSH PRN (20:30)
[2024-07-23 21:15] LABS: APPEARANCE,URINE SLT CLOUDY (Clear); BILIRUBIN,URINE NEGATIVE (Negative); COLOR,URINE YELLOW (Yellow); GLUCOSE,URINE NEGATIVE (Negative); KETONES,URINE NEGATIVE (Negative); LEUKOCYTE ESTERASE,URINE 3+ (Negative); NITRITE,URINE NEGATIVE (Negative); OCCULT BLOOD,URINE 1+ (Negative); PROTEIN,URINE 2+ (Negative); UROBILINOGEN,URINE 0.2 (0.2-1.0)
[2024-07-23] MEDS: Iopamidol 612 MG/ML 100 ML Bottle IVPUSH ONE (22:11)
[2024-07-23 22:23] LABS: EPITHELIAL CELLS,URINE 0-5 /hpf (0-5); RBC,URINE 0-5 /hpf (0-5); WBC CLUMPS,URINE MANY /hpf (NOT SEEN); WBC,URINE 75-100 /hpf (0-5)
[2024-07-23 22:24] LABS: BACTERIA,URINE FEW /hpf (FEW); HYALINE CASTS,URINE 0-5 /lpf (0-5); MUCUS,URINE NOT SEEN /hpf (FEW)
[2024-07-24] MEDS: cefTRIAXone 1 GM in Sodium Chloride 0.9% 100 ML IV ONE (03:14)
[2024-07-24 07:40] VITALS: BP 167/89; PULSE 73
== END 2024-07-24 07:40 | disposition home or self-care (01) ==
LOC: JD.ED 19:14
DX: K59.00 Constipation, unspecified (principal); N39.0 Urinary tract infection, site not specified; E78.00 Pure hypercholesterolemia, unspecified; E66.9 Obesity, unspecified; Z90.49 Acquired absence of other specified parts of digestive tract; Z79.899 Other long term (current) drug therapy; Z88.8 Allergy status to other drugs, medicaments and biological substances; Z68.33 Body mass index [BMI] 33.0-33.9, adult
CPT/HCPCS: 36415; 74177; 74177-26; 80053; 81001; 83690; 85025; 87086; 93005; 96361; 96365; 96366; 99284-25; J0696; J3490; J7030; Q9967

== ENCOUNTER 2024-11-22 15:22 | Emergency (ER) | payer MEDICARE, BC ==
[2024-11-22 17:44] VITALS: BP 181/100; PULSE 78
[2024-11-22] MEDS ORDERED: Sodium Chloride 0.9% 10 ML Syringe FLUSH PRN (17:49)
[2024-11-22 18:08] LABS: APPEARANCE,URINE CLOUDY (Clear); BILIRUBIN,URINE NEGATIVE (Negative); COLOR,URINE AMBER (Yellow); GLUCOSE,URINE NEGATIVE (Negative); KETONES,URINE NEGATIVE (Negative); LEUKOCYTE ESTERASE,URINE 1+ (Negative); NITRITE,URINE NEGATIVE (Negative); OCCULT BLOOD,URINE 3+ (Negative); PH,URINE 6.5 (5.0-8.0); PROTEIN,URINE 3+ (Negative); UROBILINOGEN,URINE 0.2 (0.2-1.0)
[2024-11-22 18:19] LABS: BACTERIA,URINE MODERATE /hpf (FEW); RBC,URINE >100 /hpf (0-5); SQUAMOUS EPITHELIAL CELLS,UR 0-5 /hpf (0-5); WBC,URINE 40-50 /hpf (0-5)
[2024-11-22 18:20] LABS: MUCUS,URINE FEW /hpf (FEW)
[2024-11-22 18:28] LABS: BASOPHILS PERCENT AUTO 0.4 % (0.0-1.0); EOSINOPHILS ABSOLUTE AUTO 0.1 K/mm3 (0.0-0.4); EOSINOPHILS PERCENT AUTO 1.5 % (0.0-6.0); HEMATOCRIT 37.2 % (42.0-52.0); HEMOGLOBIN 12.3 gm/dl (14.0-18.0); IMMATURE GRAN ABSOLUTE AUTO 0.01 K/mm3 (0.00-0.05); IMMATURE GRAN PERCENT AUTO 0.2 % (0.0-0.4); LYMPHOCYTES ABSOLUTE AUTO 0.8 K/mm3 (1.0-4.8); LYMPHOCYTES PERCENT AUTO 14.8 % (24.0-44.0); MEAN CORPUSCULAR HEMOGLOBIN 28.7 pg (28.0-32.0); MEAN CORPUSCULAR HGB CONC 33.1 g/dl (32.0-36.0); MEAN CORPUSCULAR VOLUME 86.9 fl (83.0-99.0); MONOCYTES ABSOLUTE AUTO 0.4 K/mm3 (0.0-0.8); MONOCYTES PERCENT AUTO 8.2 % (0.0-8.0); NEUTROPHILS ABSOLUTE AUTO 3.9 K/mm3 (1.8-7.7); NEUTROPHILS PERCENT AUTO 74.9 % (41.0-71.0); PLATELET COUNT,PLT 182 K/mm3 (150-400); RED BLOOD CELL COUNT 4.28 M/mm3 (4.52-5.90); WHITE BLOOD CELL COUNT,WBC 5.26 K/mm3 (3.9-11.3)
[2024-11-22 18:56] LABS: LACTIC ACID 0.9 mmol/L (0.4-2.0)
[2024-11-22 19:01] LABS: ALBUMIN 3.5 g/dl (3.4-5.0); ANION GAP 11.7 (5-15); BILIRUBIN TOTAL 0.5 mg/dL (0.2-1.0); CALCIUM 9.3 mg/dL (8.5-10.1); CREATININE 1.6 mg/dL (0.7-1.3); EST CRCL DRUG DOSING (CG) 32.06 mL/min; POTASSIUM,K 4.7 mEq/L (3.5-5.1); PROTEIN TOTAL,TP 7.1 g/dl (6.4-8.2)
[2024-11-22] MEDS: cefTRIAXone 500 MG Vial IVPUSH ONE (20:57)
== END 2024-11-22 21:30 | disposition home or self-care (01) ==
LOC: JD.ED 15:22
DX: N39.0 Urinary tract infection, site not specified (principal); E78.00 Pure hypercholesterolemia, unspecified; E66.9 Obesity, unspecified; Z68.41 Body mass index [BMI] 40.0-44.9, adult; Z90.49 Acquired absence of other specified parts of digestive tract; Z88.8 Allergy status to other drugs, medicaments and biological substances; Z79.899 Other long term (current) drug therapy
CPT/HCPCS: 36415; 80053; 81001; 83605; 83735; 83880; 84484; 85025; 87040; 87086; 87154; 93005; 93010; 96374; 99284; 99285-25; C1758; J0696

== ENCOUNTER 2024-12-02 09:32 | Emergency (ER) | payer MEDICARE, BC ==
[2024-12-02 11:21] LABS: APPEARANCE,URINE CLEAR (Clear); BILIRUBIN,URINE NEGATIVE (Negative); COLOR,URINE YELLOW (Yellow); GLUCOSE,URINE NEGATIVE (Negative); KETONES,URINE NEGATIVE (Negative); LEUKOCYTE ESTERASE,URINE 2+ (Negative); NITRITE,URINE NEGATIVE (Negative); OCCULT BLOOD,URINE 3+ (Negative); PH,URINE 6.5 (5.0-8.0); PROTEIN,URINE 2+ (Negative); UROBILINOGEN,URINE 0.2 (0.2-1.0)
[2024-12-02 11:42] LABS: RBC,URINE 30-40 /hpf (0-5); WBC,URINE 40-50 /hpf (0-5)
[2024-12-02 11:43] LABS: BACTERIA,URINE FEW /hpf (FEW); EPITHELIAL CELLS,URINE 0-5 /hpf (0-5); MUCUS,URINE NOT SEEN /hpf (FEW)
[2024-12-02 11:48] LABS: BASOPHILS PERCENT AUTO 0.4 % (0.0-1.0); EOSINOPHILS PERCENT AUTO 0.8 % (0.0-6.0); HEMATOCRIT 34.4 % (42.0-52.0); HEMOGLOBIN 11.5 gm/dl (14.0-18.0); IMMATURE GRAN ABSOLUTE AUTO 0.01 K/mm3 (0.00-0.05); IMMATURE GRAN PERCENT AUTO 0.2 % (0.0-0.4); LYMPHOCYTES ABSOLUTE AUTO 0.7 K/mm3 (1.0-4.8); LYMPHOCYTES PERCENT AUTO 12.5 % (24.0-44.0); MEAN CORPUSCULAR HEMOGLOBIN 28.9 pg (28.0-32.0); MEAN CORPUSCULAR HGB CONC 33.4 g/dl (32.0-36.0); MEAN CORPUSCULAR VOLUME 86.4 fl (83.0-99.0); MEAN PLATELET VOLUME 8.9 fl (9.4-12.4); MONOCYTES ABSOLUTE AUTO 0.3 K/mm3 (0.0-0.8); MONOCYTES PERCENT AUTO 5.2 % (0.0-8.0); NEUTROPHILS ABSOLUTE AUTO 4.2 K/mm3 (1.8-7.7); NEUTROPHILS PERCENT AUTO 80.9 % (41.0-71.0); PLATELET COUNT,PLT 165 K/mm3 (150-400); RED BLOOD CELL COUNT 3.98 M/mm3 (4.52-5.90)
[2024-12-02 12:29] LABS: A/G RATIO 0.9 (1-2); ALBUMIN 3.2 g/dl (3.4-5.0); ANION GAP 10.6 (5-15); BILIRUBIN TOTAL 0.5 mg/dL (0.2-1.0); BUN/CREATININE RATIO 17.1 (14-18); CREATININE 1.4 mg/dL (0.7-1.3); EST CRCL DRUG DOSING (CG) 42.01 mL/min; POTASSIUM,K 4.6 mEq/L (3.5-5.1); PROTEIN TOTAL,TP 6.7 g/dl (6.4-8.2)
[2024-12-02 12:42] LABS: LACTIC ACID 0.5 mmol/L (0.4-2.0)
[2024-12-02] MEDS: Amoxicillin/Clavulanate K 875-125 MG Tab PO ONE (14:27)
[2024-12-02 14:54] LABS: APPEARANCE,URINE TURBID (Clear); BILIRUBIN,URINE NEGATIVE (Negative); COLOR,URINE PINK (Yellow); GLUCOSE,URINE NEGATIVE (Negative); KETONES,URINE NEGATIVE (Negative); LEUKOCYTE ESTERASE,URINE 2+ (Negative); NITRITE,URINE NEGATIVE (Negative); OCCULT BLOOD,URINE 3+ (Negative); PROTEIN,URINE 3+ (Negative); UROBILINOGEN,URINE 0.2 (0.2-1.0)
[2024-12-02 15:06] LABS: BACTERIA,URINE FEW /hpf (FEW); EPITHELIAL CELLS,URINE 0-5 /hpf (0-5); MUCUS,URINE NOT SEEN /hpf (FEW); RBC,URINE >100 /hpf (0-5); WBC,URINE 50-75 /hpf (0-5)
[2024-12-02 15:38] VITALS: BP 153/100; PULSE 114
== END 2024-12-02 15:08 | disposition home or self-care (01) ==
LOC: JD.ED 09:32
DX: N39.0 Urinary tract infection, site not specified (principal); E78.00 Pure hypercholesterolemia, unspecified; E66.9 Obesity, unspecified; Z68.36 Body mass index [BMI] 36.0-36.9, adult; Z90.49 Acquired absence of other specified parts of digestive tract; Z87.891 Personal history of nicotine dependence; Z88.8 Allergy status to other drugs, medicaments and biological substances; Z79.899 Other long term (current) drug therapy
CPT/HCPCS: 36415; 80053; 81001; 82947; 83605; 85025; 87040; 87086; 87154; 93005; 99285; A9270; C1758

== ENCOUNTER 2024-12-12 16:36 | Inpatient (IN) | payer MEDICARE, BC ==
[2024-12-12 17:33] LABS: BASOPHILS PERCENT AUTO 0.2 % (0.0-1.0); EOSINOPHILS PERCENT AUTO 0.2 % (0.0-6.0); HEMATOCRIT 34.1 % (42.0-52.0); HEMOGLOBIN 11.3 gm/dl (14.0-18.0); IMMATURE GRAN ABSOLUTE AUTO 0.04 K/mm3 (0.00-0.05); IMMATURE GRAN PERCENT AUTO 0.4 % (0.0-0.4); LYMPHOCYTES ABSOLUTE AUTO 0.6 K/mm3 (1.0-4.8); LYMPHOCYTES PERCENT AUTO 7.1 % (24.0-44.0); MEAN CORPUSCULAR HEMOGLOBIN 28.3 pg (28.0-32.0); MEAN CORPUSCULAR HGB CONC 33.1 g/dl (32.0-36.0); MEAN CORPUSCULAR VOLUME 85.5 fl (83.0-99.0); MEAN PLATELET VOLUME 8.9 fl (9.4-12.4); MONOCYTES ABSOLUTE AUTO 0.4 K/mm3 (0.0-0.8); MONOCYTES PERCENT AUTO 4.6 % (0.0-8.0); NEUTROPHILS ABSOLUTE AUTO 7.9 K/mm3 (1.8-7.7); NEUTROPHILS PERCENT AUTO 87.5 % (41.0-71.0); PLATELET COUNT,PLT 174 K/mm3 (150-400); RED BLOOD CELL COUNT 3.99 M/mm3 (4.52-5.90); WHITE BLOOD CELL COUNT,WBC 9.05 K/mm3 (3.9-11.3)
[2024-12-12 17:51] LABS: A/G RATIO 0.8 (1-2); ALBUMIN 3.1 g/dl (3.4-5.0); ANION GAP 12.6 (5-15); BUN/CREATININE RATIO 17.1 (14-18); C-REACTIVE PROTEIN 12.85 mg/dL (<0.30); CALCIUM 9.2 mg/dL (8.5-10.1); CREATININE 1.7 mg/dL (0.7-1.3); EST CRCL DRUG DOSING (CG) 35.59 mL/min; POTASSIUM,K 4.6 mEq/L (3.5-5.1); PROTEIN TOTAL,TP 6.8 g/dl (6.4-8.2)
[2024-12-12 17:53] LABS: LACTIC ACID 1.1 mmol/L (0.4-2.0)
[2024-12-12 19:23] LABS: APPEARANCE,URINE CLOUDY (Clear); BILIRUBIN,URINE 1+ (Negative); COLOR,URINE AMBER (Yellow); GLUCOSE,URINE NEGATIVE (Negative); KETONES,URINE TRACE (Negative); LEUKOCYTE ESTERASE,URINE 1+ (Negative); NITRITE,URINE NEGATIVE (Negative); OCCULT BLOOD,URINE 3+ (Negative); PROTEIN,URINE 3+ (Negative); UROBILINOGEN,URINE 0.2 (0.2-1.0)
[2024-12-12 19:28] LABS: CORONAVIRUS COVID-19 NAA NEGATIVE (NEGATIVE); INFLUENZA A NAA NEGATIVE (NEGATIVE); RESPIRATORY SYNCYTIAL VIR NAA NEGATIVE (NEGATIVE)
[2024-12-12 19:37] LABS: RBC,URINE 75-100 /hpf (0-5); SQUAMOUS EPITHELIAL CELLS,UR 0-5 /hpf (0-5); WBC,URINE TOO NUMEROUS TO CNT /hpf (0-5)
[2024-12-12 19:38] LABS: BACTERIA,URINE MODERATE /hpf (FEW); MUCUS,URINE FEW /hpf (FEW)
[2024-12-12] MEDS ORDERED: LORazepam 2 MG/ML SDV IVPUSH PRN (19:57)
[2024-12-12] MEDS ORDERED: Morphine 2 MG/ML SYRINGE IVPUSH PRN (19:57)
[2024-12-12] MEDS: Acetaminophen 325 MG Tab PO ONE (20:05)
[2024-12-12] MEDS: Sodium Chloride 0.9% 10 ML Syringe FLUSH PRN (20:05)
[2024-12-12] MEDS: Sodium Chloride 0.9% 1,000 ML IV SCH (20:13)
[2024-12-12] MEDS: VANCOmycin 2 GM/400 ML 2 GM in Premix Bag 1 BAG IV ONE (20:13)
[2024-12-13 04:49] LABS: BASOPHILS PERCENT AUTO 0.3 % (0.0-1.0); EOSINOPHILS ABSOLUTE AUTO 0.1 K/mm3 (0.0-0.4); EOSINOPHILS PERCENT AUTO 1.8 % (0.0-6.0); HEMOGLOBIN 10.5 gm/dl (14.0-18.0); IMMATURE GRAN ABSOLUTE AUTO 0.01 K/mm3 (0.00-0.05); IMMATURE GRAN PERCENT AUTO 0.2 % (0.0-0.4); LYMPHOCYTES ABSOLUTE AUTO 0.8 K/mm3 (1.0-4.8); LYMPHOCYTES PERCENT AUTO 12.7 % (24.0-44.0); MEAN CORPUSCULAR HEMOGLOBIN 28.2 pg (28.0-32.0); MEAN CORPUSCULAR HGB CONC 32.8 g/dl (32.0-36.0); MEAN CORPUSCULAR VOLUME 85.8 fl (83.0-99.0); MONOCYTES ABSOLUTE AUTO 0.4 K/mm3 (0.0-0.8); MONOCYTES PERCENT AUTO 5.8 % (0.0-8.0); NEUTROPHILS ABSOLUTE AUTO 4.8 K/mm3 (1.8-7.7); NEUTROPHILS PERCENT AUTO 79.2 % (41.0-71.0); PLATELET COUNT,PLT 152 K/mm3 (150-400); RED BLOOD CELL COUNT 3.73 M/mm3 (4.52-5.90); WHITE BLOOD CELL COUNT,WBC 6.06 K/mm3 (3.9-11.3)
[2024-12-13 05:26] LABS: A/G RATIO 0.8 (1-2); ALBUMIN 2.7 g/dl (3.4-5.0); ANION GAP 13.3 (5-15); BILIRUBIN TOTAL 0.7 mg/dL (0.2-1.0); BUN/CREATININE RATIO 20.7 (14-18); CALCIUM 9.2 mg/dL (8.5-10.1); CREATININE 1.4 mg/dL (0.7-1.3); EST CRCL DRUG DOSING (CG) 43.22 mL/min; MAGNESIUM 2.2 mg/dL (1.8-2.4); PHOSPHORUS 3.3 mg/dL (2.6-4.7); POTASSIUM,K 4.3 mEq/L (3.5-5.1); PROTEIN TOTAL,TP 6.2 g/dl (6.4-8.2)
[2024-12-13] MEDS: Ondansetron 4 MG Tab.DIS PO PRN (09:32)
[2024-12-13] MEDS ORDERED: oxyCODONE 5 MG Tab PO PRN (09:33)
[2024-12-13] MEDS ORDERED: Ondansetron 4 MG/2 ML SDV IV PRN (09:33)
[2024-12-13] MEDS ORDERED: Polyethylene Glycol 3350 Powder 17 GM Packet PO PRN (09:33)
[2024-12-13] MEDS ORDERED: Acetaminophen 325 MG Tab PO PRN (09:33)
[2024-12-13] MEDS: Enoxaparin 40 MG/0.4 ML Syringe SUBCUT SCH (10:18)
[2024-12-13] MEDS ORDERED: Sodium Chloride 0.9% 10 ML Syringe FLUSH PRN (10:37)
[2024-12-13] MEDS: Iopamidol 612 MG/ML 100 ML Bottle IVPUSH ONE (10:46)
[2024-12-13] MEDS: Polyethylene Glycol 3350 Powder 17 GM Packet PO SCH (15:26)
[2024-12-13] MEDS: Docusate Sodium 100 MG Cap PO PRN (15:26)
[2024-12-13] MEDS ORDERED: traMADol 50 MG Tab PO PRN (16:21)
[2024-12-13] MEDS: VANCOmycin 1.25 GM/250 ML 1.25 GM in Premix Bag 1 BAG IV SCH (19:45)
[2024-12-13] MEDS: Tamsulosin 0.4 MG Cap.ER PO SCH (21:58)
[2024-12-14 04:37] LABS: BASOPHILS PERCENT AUTO 0.6 % (0.0-1.0); EOSINOPHILS ABSOLUTE AUTO 0.2 K/mm3 (0.0-0.4); EOSINOPHILS PERCENT AUTO 3.3 % (0.0-6.0); HEMATOCRIT 32.6 % (42.0-52.0); HEMOGLOBIN 10.5 gm/dl (14.0-18.0); IMMATURE GRAN ABSOLUTE AUTO 0.01 K/mm3 (0.00-0.05); IMMATURE GRAN PERCENT AUTO 0.2 % (0.0-0.4); LYMPHOCYTES PERCENT AUTO 19.3 % (24.0-44.0); MEAN CORPUSCULAR HEMOGLOBIN 28.4 pg (28.0-32.0); MEAN CORPUSCULAR HGB CONC 32.2 g/dl (32.0-36.0); MEAN CORPUSCULAR VOLUME 88.1 fl (83.0-99.0); MONOCYTES ABSOLUTE AUTO 0.3 K/mm3 (0.0-0.8); MONOCYTES PERCENT AUTO 6.5 % (0.0-8.0); NEUTROPHILS ABSOLUTE AUTO 3.5 K/mm3 (1.8-7.7); NEUTROPHILS PERCENT AUTO 70.1 % (41.0-71.0); PLATELET COUNT,PLT 147 K/mm3 (150-400); WHITE BLOOD CELL COUNT,WBC 4.92 K/mm3 (3.9-11.3)
[2024-12-14 05:09] LABS: A/G RATIO 0.8 (1-2); ALBUMIN 2.7 g/dl (3.4-5.0); ANION GAP 13.2 (5-15); BILIRUBIN TOTAL 0.5 mg/dL (0.2-1.0); C-REACTIVE PROTEIN 7.67 mg/dL (<0.30); CALCIUM 8.8 mg/dL (8.5-10.1); CREATININE 1.3 mg/dL (0.7-1.3); EST CRCL DRUG DOSING (CG) 46.54 mL/min; MAGNESIUM 1.9 mg/dL (1.8-2.4); POTASSIUM,K 4.2 mEq/L (3.5-5.1); PROTEIN TOTAL,TP 6.2 g/dl (6.4-8.2); VANCOMYCIN RANDOM 15.5 ug/mL
[2024-12-14] MEDS: Furosemide 20 MG Tab PO SCH (07:50)
[2024-12-14] MEDS: Rosuvastatin 10 MG Tab PO SCH (07:50)
[2024-12-14] MEDS: Finasteride 5 MG Tab PO SCH (20:23)
[2024-12-14] MEDS: VANCOmycin 1.5 GM/300 ML 1.5 GM in Premix Bag 1 BAG IV SCH (20:23)
[2024-12-15 05:28] LABS: BASOPHILS PERCENT AUTO 0.5 % (0.0-1.0); EOSINOPHILS ABSOLUTE AUTO 0.1 K/mm3 (0.0-0.4); EOSINOPHILS PERCENT AUTO 3.6 % (0.0-6.0); HEMATOCRIT 30.9 % (42.0-52.0); HEMOGLOBIN 10.3 gm/dl (14.0-18.0); IMMATURE GRAN ABSOLUTE AUTO 0.01 K/mm3 (0.00-0.05); IMMATURE GRAN PERCENT AUTO 0.3 % (0.0-0.4); LYMPHOCYTES ABSOLUTE AUTO 0.9 K/mm3 (1.0-4.8); LYMPHOCYTES PERCENT AUTO 22.1 % (24.0-44.0); MEAN CORPUSCULAR HEMOGLOBIN 28.2 pg (28.0-32.0); MEAN CORPUSCULAR HGB CONC 33.3 g/dl (32.0-36.0); MEAN CORPUSCULAR VOLUME 84.7 fl (83.0-99.0); MEAN PLATELET VOLUME 9.1 fl (9.4-12.4); MONOCYTES ABSOLUTE AUTO 0.3 K/mm3 (0.0-0.8); MONOCYTES PERCENT AUTO 7.2 % (0.0-8.0); NEUTROPHILS ABSOLUTE AUTO 2.6 K/mm3 (1.8-7.7); NEUTROPHILS PERCENT AUTO 66.3 % (41.0-71.0); PLATELET COUNT,PLT 162 K/mm3 (150-400); RED BLOOD CELL COUNT 3.65 M/mm3 (4.52-5.90); WHITE BLOOD CELL COUNT,WBC 3.89 K/mm3 (3.9-11.3)
[2024-12-15 05:29] LABS: A/G RATIO 0.8 (1-2); ALBUMIN 2.7 g/dl (3.4-5.0); BILIRUBIN TOTAL 0.5 mg/dL (0.2-1.0); BUN/CREATININE RATIO 20.8 (14-18); C-REACTIVE PROTEIN 3.59 mg/dL (<0.30); CREATININE 1.2 mg/dL (0.7-1.3); EST CRCL DRUG DOSING (CG) 50.42 mL/min; MAGNESIUM 1.8 mg/dL (1.8-2.4); PROTEIN TOTAL,TP 6.1 g/dl (6.4-8.2)
[2024-12-15] MEDS: Polyethylene Glycol 3350 Powder 17 GM Packet PO PRN (08:24)
[2024-12-15 11:42] VITALS: BP 139/97; PULSE 71
== END 2024-12-15 16:39 | disposition home or self-care (01) | DRG 699 ==
LOC: JD.ED 16:36 → JD.MS 21:11
PROVIDERS: ADMIT Student in an Organized Health Care Education/Training Program; ATTEND Student in an Organized Health Care Education/Training Program
DX: T83.518A Infection and inflammatory reaction due to other urinary catheter, initial encounter (principal); R33.8 Other retention of urine; N39.0 Urinary tract infection, site not specified; N13.30 Unspecified hydronephrosis; B95.7 Other staphylococcus as the cause of diseases classified elsewhere; N30.01 Acute cystitis with hematuria; Z16.11 Resistance to penicillins; Z90.49 Acquired absence of other specified parts of digestive tract; N17.9 Acute kidney failure, unspecified; R78.81 Bacteremia; B96.89 Other specified bacterial agents as the cause of diseases classified elsewhere; K59.09 Other constipation; K21.9 Gastro-esophageal reflux disease without esophagitis; M19.90 Unspecified osteoarthritis, unspecified site; M10.9 Gout, unspecified; M11.09 Hydroxyapatite deposition disease, multiple sites; G62.9 Polyneuropathy, unspecified; E78.00 Pure hypercholesterolemia, unspecified; H91.90 Unspecified hearing loss, unspecified ear; H54.7 Unspecified visual loss; G47.30 Sleep apnea, unspecified; E66.9 Obesity, unspecified; Z96.649 Presence of unspecified artificial hip joint; Z96.659 Presence of unspecified artificial knee joint; I35.0 Nonrheumatic aortic (valve) stenosis; I36.1 Nonrheumatic tricuspid (valve) insufficiency; F15.90 Other stimulant use, unspecified, uncomplicated; F10.90 Alcohol use, unspecified, uncomplicated; N40.1 Benign prostatic hyperplasia with lower urinary tract symptoms; Y69 Unspecified misadventure during surgical and medical care; B95.8 Unspecified staphylococcus as the cause of diseases classified elsewhere; R33.9 Retention of urine, unspecified; N18.32 Chronic kidney disease, stage 3b; Z66 Do not resuscitate; Z68.34 Body mass index [BMI] 34.0-34.9, adult; Z79.02 Long term (current) use of antithrombotics/antiplatelets; Z88.8 Allergy status to other drugs, medicaments and biological substances; Z79.899 Other long term (current) drug therapy; Z98.49 Cataract extraction status, unspecified eye; Z87.891 Personal history of nicotine dependence; Z98.890 Other specified postprocedural states; Z79.1 Long term (current) use of non-steroidal anti-inflammatories (NSAID); Z91.199 Patient's noncompliance with other medical treatment and regimen due to unspecified reason
CPT/HCPCS: 0241U; 36415; 51701; 51702; 51798; 71046; 74177; 80053; 80202; 81001; 83605; 83735; 84100; 85025; 86140; 87040; 87086; 93005; 93306; 96365; 97116; 97162; 97530; 99285; 93010; 99284; A9270-GY; C1758; J1650; J3372; J7030; Q9967